=== PATIENT | female | born 1965 | race Caucasian/White ===

== ENCOUNTER 2022-11-23 16:21 | Inpatient (IN) | payer MEDICARE, MEDICAID ==
[~2022-11-23] VITALS: Ht 172.7 cm; Wt 97.5 kg
[2022-11-23] MEDS ORDERED: IPRATROPIUM 0.5MG/ALBUTEROL 2.5MG INH SOL UD 3ML (DUONEB) NEB ONE (17:50)
[2022-11-23] MEDS ORDERED: ALBUTEROL SULFATE 2.5MG/0.5ML INH NEB SOLN INH ONE (17:50)
[2022-11-23] MEDS ORDERED: methylPREDNISolone 125MG 2ML VIAL IV ONE (17:50)
[2022-11-23 18:42] LABS: BASO # 0.1 10^3/uL (0.0-0.2); BASO % 0.9 % (0.0-1.0); EOS # 0.1 10^3/uL (0.0-0.5); HEMATOCRIT 39.9 % (36.0-47.0); HEMOGLOBIN 13.1 g/dl (12.0-15.5); LYMPH # 1.5 10^3/uL (1.5-5.0); MEAN CORPUSCULAR HEMOGLOBIN 31.3 pg (27.0-33.0); MEAN CORPUSCULAR HGB CONC 32.8 g/dl (32.0-36.5); MEAN CORPUSCULAR VOLUME 95.2 fl (80.0-96.0); MONO # 0.3 10^3/uL (0.0-0.8); NEUTROPHILS # 6.1 10^3/uL (1.5-8.5); NEUTROPHILS % 75.6 % (36.0-66.0); PLATELET COUNT, AUTOMATED 209 10^3/uL (150-450); RED BLOOD COUNT 4.19 10^6/uL (4.00-5.40); WHITE BLOOD COUNT 8.1 10^3/uL (4.0-10.0)
[2022-11-23] MEDS ORDERED: PRAZ1CAP PO (18:51)
[2022-11-23] MEDS ORDERED: SYNT100T PO (18:51)
[2022-11-23] MEDS ORDERED: OMEP40CA4 PO (18:51)
[2022-11-23 19:00] LABS: CK-MB VALUE MASS 3.5 NG/ML (<3.6)
[2022-11-23 19:01] LABS: CPK CREATINE PHOSPHOKINASE 264 U/L (34-145); MB/CK RELATIVE INDEX 1.32 (< OR =4)
[2022-11-23 19:02] LABS: ALBUMIN 3.8 G/DL (3.2-5.2); ALKALINE PHOSPHATASE 79 U/L (46-116); ALT/SGPT 24 U/L (7.0-40); AST/SGOT 32 U/L (<34); BILIRUBIN,DIRECT < 0.1 MG/DL (<0.4); BILIRUBIN,TOTAL 0.2 MG/DL (0.3-1.2); TOTAL PROTEIN 7.3 G/DL (5.7-8.2)
[2022-11-23 19:04] LABS: THYROID STIMULATING HORMONE 128.005 uIU/ML (0.55-4.78); THYROXINE (T4) 4.9 UG/DL (4.5-10.9)
[2022-11-23] MEDS ORDERED: ISOVUE-370 76% 100ML VIAL As Ordered ONE (20:58)
[2022-11-23] MEDS ORDERED: diphenhydrAMINE 50MG/ML VIAL IV ONE (21:05)
[2022-11-24] VITALS (12 sets, daily range): BP systolic 115–174; BP diastolic 56–112; O2SAT 95–98
[2022-11-24] MEDS ORDERED: MOM 30ML SUSPENSION UDC PO PRN (01:45)
[2022-11-24] MEDS ORDERED: HYDR50CA2 PO (02:15)
[2022-11-24] MEDS ORDERED: LATU80TA2 PO (02:17)
[2022-11-24] MEDS ORDERED: ONDA4TAB6 SL (02:17)
[2022-11-24] MEDS ORDERED: PRED10TA2 PO (02:17)
[2022-11-24] MEDS ORDERED: HOME MED LIST COMPLETE! XX SCH (02:20)
[2022-11-24 02:27] LABS: FREE T4 0.54 NG/DL (0.89-1.76)
[2022-11-24] MEDS: methylPREDNISolone 40MG 1ML VIAL IV SCH ×3 (03:23→18:38)
[2022-11-24] MEDS: DOXYCYCLINE HYCLATE 100 MG in D5W MINI-BAG PLUS 100 ML IV SCH ×2 (03:23→15:47)
[2022-11-24] MEDS: LEVOTHYROXINE 100MCG TABLET (0.1MG) PO SCH (05:54)
[2022-11-24 07:04] LABS: HEMATOCRIT 39.9 % (36.0-47.0); MEAN CORPUSCULAR HEMOGLOBIN 31.3 pg (27.0-33.0); MEAN CORPUSCULAR HGB CONC 32.6 g/dl (32.0-36.5); MEAN CORPUSCULAR VOLUME 96.1 fl (80.0-96.0); PLATELET COUNT, AUTOMATED 213 10^3/uL (150-450); RED BLOOD COUNT 4.15 10^6/uL (4.00-5.40); WHITE BLOOD COUNT 9.2 10^3/uL (4.0-10.0)
[2022-11-24] MEDS: IPRATROPIUM 0.5MG/ALBUTEROL 2.5MG INH SOL UD 3ML (DUONEB) NEB SCH ×3 (07:38→18:57)
[2022-11-24 08:00] LABS: ALBUMIN 3.5 G/DL (3.2-5.2); BILIRUBIN,TOTAL 0.3 MG/DL (0.3-1.2); CALCIUM LEVEL 9.7 MG/DL (8.5-10.1); CREATININE FOR GFR 1.05 MG/DL (0.55-1.30); GLOMERULAR FILTRATION RATE 57.3 (>51); POTASSIUM SERUM 3.6 MMOL/L (3.5-5.1); TOTAL PROTEIN 7.1 G/DL (5.7-8.2)
[2022-11-24] MEDS: HEPARIN SOD (PORCINE) 5000UNITS/ML 1ML VIAL/SYRINGE SC SCH ×2 (08:03→20:44)
[2022-11-24] MEDS ORDERED: OMEPRAZOLE 20MG CAP PO SCH (09:00)
[2022-11-24] MEDS ORDERED: NS 1,000 ML IV SCH ×2 (09:20→10:25)
[2022-11-24] MEDS ORDERED: ALBUTEROL SULFATE 2.5MG/0.5ML INH NEB SOLN NEB PRN (09:35)
[2022-11-24 09:36] LABS: HIV 1&2 SCREEN CENTAUR NEGATIVE (NEGATIVE)
[2022-11-24] MEDS: NICOTINE 14 MG/24 HR TRANSDERMAL TD SCH (09:52)
[2022-11-24] MEDS ORDERED: ACETAMINOPHEN TAB 650MG DOSE (2X325MG) PO PRN (10:25)
[2022-11-24] MEDS ORDERED: BISACODYL 10MG SUPP PR PRN (10:25)
[2022-11-24 10:53] LABS: BLOOD UREA NITROGEN 23 MG/DL (9-23); CALCIUM LEVEL 9.6 MG/DL (8.5-10.1); CARBON DIOXIDE LEVEL 24 MMOL/L (20-31); CHLORIDE LEVEL 103 MMOL/L (98-107); CREATININE FOR GFR 1.02 MG/DL (0.55-1.30); GLOMERULAR FILTRATION RATE 59.3 (>51); GLUCOSE, FASTING 118 MG/DL (60-100); POTASSIUM SERUM 3.7 MMOL/L (3.5-5.1); SODIUM LEVEL 137 MMOL/L (136-145)
[2022-11-24] MEDS ORDERED: PANTOPRAZOLE 40MG VIAL IV SCH (11:00)
[2022-11-24] MEDS: DOCUSATE SODIUM 100MG CAPSULE PO SCH ×2 (11:09→20:43)
[2022-11-24 11:17] LABS: ABG BASE EXCESS -0.9 (-2.0-2.0); ABG HCO3 22.5 MEQ/L (22.0-26.0); ABG PARTIAL PRESSURE CO2 33.8 mmHg (35.0-45.0); ABG PARTIAL PRESSURE O2 75.9 mmHg (75.0-100.0); ABG STANDARD HCO3 23.7 MEQ/L (22.0-26.0); ABG TOTAL CO2 23.6 MEQ/L (22.0-29.0); ABG pH (ARTERIAL) 7.442 UNITS (7.350-7.450)
[2022-11-24] MEDS: NAPROXEN 250 MG TAB PO SCH ×2 (13:10→20:45)
[2022-11-24] MEDS: DOXEPIN 25 MG CAP PO SCH (20:45)
[2022-11-25] VITALS: BP 161/83
[2022-11-25] MEDS: IPRATROPIUM 0.5MG/ALBUTEROL 2.5MG INH SOL UD 3ML (DUONEB) NEB SCH ×4 (01:14→19:47)
[2022-11-25] MEDS: DOXYCYCLINE HYCLATE 100 MG in D5W MINI-BAG PLUS 100 ML IV SCH ×2 (03:01→15:44)
[2022-11-25] MEDS: methylPREDNISolone 40MG 1ML VIAL IV SCH (03:01)
[2022-11-25 04:00] VITALS: BP 143/84
[2022-11-25 04:54] LABS: BASO % 0.1 % (0.0-1.0); HEMATOCRIT 38.4 % (36.0-47.0); HEMOGLOBIN 12.2 g/dl (12.0-15.5); LYMPH # 1.6 10^3/uL (1.5-5.0); LYMPH % 12.5 % (24.0-44.0); MEAN CORPUSCULAR HEMOGLOBIN 31.2 pg (27.0-33.0); MEAN CORPUSCULAR HGB CONC 31.8 g/dl (32.0-36.5); MEAN CORPUSCULAR VOLUME 98.2 fl (80.0-96.0); MONO # 0.6 10^3/uL (0.0-0.8); MONO % 4.5 % (2.0-8.0); NEUTROPHILS # 10.2 10^3/uL (1.5-8.5); PLATELET COUNT, AUTOMATED 208 10^3/uL (150-450); RED BLOOD COUNT 3.91 10^6/uL (4.00-5.40); WHITE BLOOD COUNT 12.4 10^3/uL (4.0-10.0)
[2022-11-25 05:13] LABS: BLOOD UREA NITROGEN 28 MG/DL (9-23); CALCIUM LEVEL 9.1 MG/DL (8.5-10.1); CARBON DIOXIDE LEVEL 24 MMOL/L (20-31); CHLORIDE LEVEL 105 MMOL/L (98-107); CREATININE FOR GFR 0.89 MG/DL (0.55-1.30); GLOMERULAR FILTRATION RATE > 60.0 (>51); GLUCOSE, FASTING 175 MG/DL (60-100); POTASSIUM SERUM 4.6 MMOL/L (3.5-5.1); SODIUM LEVEL 137 MMOL/L (136-145)
[2022-11-25] MEDS: LEVOTHYROXINE 100MCG TABLET (0.1MG) PO SCH (05:23)
[2022-11-25 08:00] VITALS: BP 157/82
[2022-11-25] MEDS: NICOTINE 14 MG/24 HR TRANSDERMAL TD SCH (08:34)
[2022-11-25] MEDS: HEPARIN SOD (PORCINE) 5000UNITS/ML 1ML VIAL/SYRINGE SC SCH ×2 (08:34→20:17)
[2022-11-25] MEDS: COLCHICINE 0.6 MG TABLET PO SCH (08:34)
[2022-11-25] MEDS: NAPROXEN 250 MG TAB PO SCH ×2 (08:35→20:16)
[2022-11-25] MEDS: PANTOPRAZOLE 40MG TAB (PROTONIX) PO SCH (08:35)
[2022-11-25] MEDS: DOCUSATE SODIUM 100MG CAPSULE PO SCH ×2 (09:55→20:15)
[2022-11-25] MEDS: predniSONE 20 MG TAB PO SCH (10:35)
[2022-11-25 12:00] VITALS: BP 140/69
[2022-11-25 12:33] LABS: HEPATITIS B CORE ANTIBODY IGM NEGATIVE (NEGATIVE); HEPATITIS B SURFACE ANTIBODY NEGATIVE (POSITIVE); HEPATITIS B SURFACE ANTIGEN NEGATIVE (NEGATIVE)
[2022-11-25 12:58] LABS: HEPATITIS C VIRUS ABY INDEX > 11.0 INDEX (<0.8)
[2022-11-25] MEDS: oxyCODONE 5MG TAB PO PRN ×2 (14:58→23:46)
[2022-11-25 20:00] VITALS: BP 136/77
[2022-11-25] MEDS: DOXEPIN 25 MG CAP PO SCH (20:16)
[2022-11-25 21:07] LABS: ANA (HEP2) Negative (.)
[2022-11-26] VITALS: BP 149/90
[2022-11-26] MEDS: IPRATROPIUM 0.5MG/ALBUTEROL 2.5MG INH SOL UD 3ML (DUONEB) NEB SCH ×2 (01:21→08:30)
[2022-11-26] MEDS: DOXYCYCLINE HYCLATE 100 MG in D5W MINI-BAG PLUS 100 ML IV SCH (03:27)
[2022-11-26 04:00] VITALS: BP 157/82
[2022-11-26 04:34] LABS: BASO % 0.2 % (0.0-1.0); EOS % 0.1 % (0.0-3.0); HEMATOCRIT 37.3 % (36.0-47.0); HEMOGLOBIN 11.9 g/dl (12.0-15.5); LYMPH # 2.7 10^3/uL (1.5-5.0); LYMPH % 21.5 % (24.0-44.0); MEAN CORPUSCULAR HGB CONC 31.9 g/dl (32.0-36.5); MEAN CORPUSCULAR VOLUME 97.1 fl (80.0-96.0); MONO # 0.8 10^3/uL (0.0-0.8); MONO % 6.1 % (2.0-8.0); NEUTROPHILS % 71.3 % (36.0-66.0); PLATELET COUNT, AUTOMATED 197 10^3/uL (150-450); RED BLOOD COUNT 3.84 10^6/uL (4.00-5.40); WHITE BLOOD COUNT 12.6 10^3/uL (4.0-10.0)
[2022-11-26 05:06] LABS: C REACTIVE PROTEIN QUANTITATIV < 0.40 MG/DL (<1.0)
[2022-11-26 05:08] LABS: BLOOD UREA NITROGEN 27 MG/DL (9-23); CALCIUM LEVEL 9.1 MG/DL (8.5-10.1); CARBON DIOXIDE LEVEL 26 MMOL/L (20-31); CHLORIDE LEVEL 106 MMOL/L (98-107); GLOMERULAR FILTRATION RATE > 60.0 (>51); GLUCOSE, FASTING 115 MG/DL (60-100); MAGNESIUM LEVEL 1.9 MG/DL (1.8-2.4); POTASSIUM SERUM 3.7 MMOL/L (3.5-5.1); SODIUM LEVEL 138 MMOL/L (136-145)
[2022-11-26] MEDS: LEVOTHYROXINE 100MCG TABLET (0.1MG) PO SCH (05:19)
[2022-11-26] MEDS: oxyCODONE 5MG TAB PO PRN (05:20)
[2022-11-26 06:34] LABS: ERYTHROCYTE SEDIMENTATION RATE 30 mm/hr (0-30)
[2022-11-26 08:00] VITALS: BP 163/88
[2022-11-26] MEDS: NICOTINE 14 MG/24 HR TRANSDERMAL TD SCH (09:00)
[2022-11-26] MEDS: HEPARIN SOD (PORCINE) 5000UNITS/ML 1ML VIAL/SYRINGE SC SCH (09:00)
[2022-11-26] MEDS: NAPROXEN 250 MG TAB PO SCH (09:00)
[2022-11-26] MEDS ORDERED: MIRALAX *UNIT DOSE* 17GM PACKET PO SCH (09:00)
[2022-11-26] MEDS ORDERED: HYDR50CA2 PO (10:01)
[2022-11-26] MEDS ORDERED: SYNT100T PO (10:01)
[2022-11-26] MEDS ORDERED: PRED10TA2 PO (10:01)
[2022-11-26] MEDS ORDERED: PRAZ1CAP PO (10:01)
[2022-11-26] MEDS ORDERED: COLC0.6T47 PO (10:01)
[2022-11-26] MEDS ORDERED: LATU40TA2 PO (10:01)
[2022-11-26] MEDS ORDERED: IPRA0.00 NEB (10:02)
[2022-11-26] MEDS ORDERED: PANT40TA29 PO (10:02)
[2022-11-26] MEDS ORDERED: ALBU2.5V10 INH (10:02)
[2022-11-26] MEDS ORDERED: NAPR-849 PO (10:02)
[2022-11-26] MEDS ORDERED: NICO14PA TD (10:02)
[2022-11-26] MEDS ORDERED: PROA1AER2 INH (10:13)
[2022-11-26] MEDS ORDERED: ADV100INH INH (10:14)
[2022-11-26] MEDS: DOCUSATE SODIUM 100MG CAPSULE PO SCH (11:08)
[2022-11-26] MEDS: COLCHICINE 0.6 MG TABLET PO SCH (11:08)
[2022-11-26] MEDS: PANTOPRAZOLE 40MG TAB (PROTONIX) PO SCH (11:09)
[2022-11-26] MEDS: predniSONE 20 MG TAB PO SCH (11:09)
[2022-11-26 11:12] VITALS: BP 158/80
[2022-11-26] MEDS ORDERED: LURASIDONE HCL 40MG TAB (LATUDA) PO SCH (21:00)
[2022-11-28 19:07] LABS: HCV RNA (INTERNATIONAL UNITS) 22300000 IU/mL (.); HEPATITIS C QUANTITATION See Final Results IU/mL (.); HEPATITIS C VIRUS GENOTYPE 1a (.)
== END 2022-11-26 12:32 | disposition home or self-care (01) | DRG 315 ==
LOC: M ED 16:21 → M ED INP 11-24 02:04 → ENRESERV 11-24 05:12 → M ICU 11-24 06:26
PROVIDERS: ADMIT Internal Medicine; ATTEND Internal Medicine
PROC: B246ZZZ Ultrasonography of Right and Left Heart (ICD-10-PCS; principal; 2022-11-24)
DX: I31.39 Other pericardial effusion (noninflammatory) (principal); J44.1 Chronic obstructive pulmonary disease with (acute) exacerbation; I69.354 Hemiplegia and hemiparesis following cerebral infarction affecting left non-dominant side; E27.1 Primary adrenocortical insufficiency; Z99.81 Dependence on supplemental oxygen; B19.20 Unspecified viral hepatitis C without hepatic coma; K22.70 Barrett's esophagus without dysplasia; K21.9 Gastro-esophageal reflux disease without esophagitis; I10 Essential (primary) hypertension; F17.210 Nicotine dependence, cigarettes, uncomplicated; E78.5 Hyperlipidemia, unspecified; E03.9 Hypothyroidism, unspecified; Z98.82 Breast implant status; Z90.79 Acquired absence of other genital organ(s); Z90.49 Acquired absence of other specified parts of digestive tract; Z20.822 Contact with and (suspected) exposure to COVID-19; Z79.52 Long term (current) use of systemic steroids; Z79.890 Hormone replacement therapy; Z79.899 Other long term (current) drug therapy; Z88.0 Allergy status to penicillin; F41.9 Anxiety disorder, unspecified; F32.A Depression, unspecified; M06.9 Rheumatoid arthritis, unspecified; K76.0 Fatty (change of) liver, not elsewhere classified; F31.9 Bipolar disorder, unspecified

== ENCOUNTER 2022-12-20 15:23 | Emergency (ER) | payer MEDICARE, MEDICAID ==
[~2022-12-20] VITALS: Ht 172.7 cm; Wt 94.9 kg
[~2022-12-20 15:23] MED LIST: ADV100INH INH; ALBU2.5V10 INH; COLC0.6T47 PO; HYDR50CA2 PO; IPRA0.00 NEB; LATU40TA2 PO; LATU80TA2 PO; NAPR-849 PO; NICO14PA TD; OMEP40CA4 PO; ONDA4TAB6 SL; PANT40TA29 PO; PRAZ1CAP PO; PRED10TA2 PO; PROA1AER2 INH; SYNT100T PO
[2022-12-20 16:20] LABS: BASO # 0.1 10^3/uL (0.0-0.2); BASO % 0.4 % (0.0-1.0); EOS # 0.1 10^3/uL (0.0-0.5); EOS % 0.6 % (0.0-3.0); HEMATOCRIT 38.1 % (36.0-47.0); HEMOGLOBIN 12.5 g/dl (12.0-15.5); LYMPH % 16.1 % (24.0-44.0); MEAN CORPUSCULAR HEMOGLOBIN 30.6 pg (27.0-33.0); MEAN CORPUSCULAR HGB CONC 32.8 g/dl (32.0-36.5); MEAN CORPUSCULAR VOLUME 93.4 fl (80.0-96.0); MONO # 1.4 10^3/uL (0.0-0.8); MONO % 11.3 % (2.0-8.0); NEUTROPHILS # 8.7 10^3/uL (1.5-8.5); PLATELET COUNT, AUTOMATED 210 10^3/uL (150-450); RED BLOOD COUNT 4.08 10^6/uL (4.00-5.40); WHITE BLOOD COUNT 12.3 10^3/uL (4.0-10.0)
[2022-12-20 16:51] VITALS: BP 134/74
[2022-12-20 16:53] LABS: BLOOD UREA NITROGEN 13 MG/DL (9-23); CALCIUM LEVEL 9.5 MG/DL (8.5-10.1); CARBON DIOXIDE LEVEL 25 MMOL/L (20-31); CHLORIDE LEVEL 107 MMOL/L (98-107); CREATININE FOR GFR 0.97 MG/DL (0.55-1.30); GLOMERULAR FILTRATION RATE > 60.0 (>51); GLUCOSE, FASTING 113 MG/DL (60-100); POTASSIUM SERUM 3.6 MMOL/L (3.5-5.1); SODIUM LEVEL 139 MMOL/L (136-145)
[2022-12-20 16:55] LABS: THYROXINE (T4) 9.1 UG/DL (4.5-10.9)
[2022-12-20 16:56] LABS: FREE THYROXINE INDEX 3.1 % (1.3-4.8); T UPTAKE 34.3 % (22.5-37.0); THYROID STIMULATING HORMONE 6.988 uIU/ML (0.55-4.78)
[2022-12-20 17:40] LABS: RSV AMPLIFICATION NEGATIVE (NEGATIVE)
== END 2022-12-20 17:28 | disposition home or self-care (01) ==
LOC: M ED 15:23
DX: S00.83XA Contusion of other part of head, initial encounter (principal); W19.XXXA Unspecified fall, initial encounter; Y92.099 Unspecified place in other non-institutional residence as the place of occurrence of the external cause; M47.892 Other spondylosis, cervical region; I10 Essential (primary) hypertension; E03.9 Hypothyroidism, unspecified; E27.2 Addisonian crisis; Z86.73 Personal history of transient ischemic attack (TIA), and cerebral infarction without residual deficits; F17.200 Nicotine dependence, unspecified, uncomplicated; Z79.890 Hormone replacement therapy; Z79.899 Other long term (current) drug therapy; Z88.0 Allergy status to penicillin

== ENCOUNTER 2023-10-01 00:41 | Emergency (ER) | payer OTHER, MEDICAID ==
[~2023-10-01] VITALS: Ht 172.7 cm; Wt 90.9 kg
[~2023-10-01 00:41] MED LIST changes: +DOXE50CA PO; +XARE20TA PO
[2023-10-01 03:18] VITALS: BP 137/79; TEMP 98; O2SAT 96
== END 2023-10-01 03:45 | disposition home or self-care (01) ==
LOC: M ED 00:41 → EDBD 00:41 → M ED 03:45
DX: U07.1 COVID-19 (principal); I10 Essential (primary) hypertension; J44.9 Chronic obstructive pulmonary disease, unspecified; F17.200 Nicotine dependence, unspecified, uncomplicated; Z86.79 Personal history of other diseases of the circulatory system; Z91.041 Radiographic dye allergy status; Z88.0 Allergy status to penicillin; Z88.2 Allergy status to sulfonamides; Z79.52 Long term (current) use of systemic steroids; Z79.899 Other long term (current) drug therapy

== ENCOUNTER 2023-10-06 22:00 | Inpatient (IN) | payer OTHER, MEDICAID ==
[~2023-10-06] VITALS: Ht 172.7 cm; Wt 98.4 kg
[2023-10-06] MEDS: IPRATROPIUM 0.5MG/ALBUTEROL 2.5MG INH SOL UD 3ML (DUONEB) NEB PRN ×2 (23:36→23:37)
[2023-10-06] MEDS ORDERED: IPRATROPIUM 0.5MG/ALBUTEROL 2.5MG INH SOL UD 3ML (DUONEB) As Ordered ONE (23:40)
[2023-10-07 00:47] LABS: BASO % 0.2 % (0.0-1.0); EOS % 0.1 % (0.0-3.0); HEMATOCRIT 35.7 % (36.0-47.0); HEMOGLOBIN 11.4 g/dl (12.0-15.5); LYMPH # 0.5 10^3/uL (1.5-5.0); LYMPH % 2.6 % (24.0-44.0); MEAN CORPUSCULAR HEMOGLOBIN 27.5 pg (27.0-33.0); MEAN CORPUSCULAR HGB CONC 31.9 g/dl (32.0-36.5); MEAN CORPUSCULAR VOLUME 86.2 fl (80.0-96.0); MONO # 0.7 10^3/uL (0.0-0.8); MONO % 3.8 % (2.0-8.0); NEUTROPHILS # 18.2 10^3/uL (1.5-8.5); NEUTROPHILS % 92.4 % (36.0-66.0); PLATELET COUNT, AUTOMATED 183 10^3/uL (150-450); RED BLOOD COUNT 4.14 10^6/uL (4.00-5.40); WHITE BLOOD COUNT 19.6 10^3/uL (4.0-10.0)
[2023-10-07 01:18] LABS: CK-MB VALUE MASS < 1.0 NG/ML (<3.6)
[2023-10-07 01:20] LABS: ALBUMIN 3.1 G/DL (3.2-5.2); ALKALINE PHOSPHATASE 92 U/L (46-116); ALT/SGPT 20 U/L (7.0-40); AST/SGOT 20 U/L (<34); BILIRUBIN,DIRECT 0.1 MG/DL (<0.4); BILIRUBIN,TOTAL 0.3 MG/DL (0.3-1.2); BLOOD UREA NITROGEN 18 MG/DL (9-23); CALCIUM LEVEL 8.9 MG/DL (8.5-10.1); CARBON DIOXIDE LEVEL 20 MMOL/L (20-31); CHLORIDE LEVEL 110 MMOL/L (98-107); CPK CREATINE PHOSPHOKINASE 56 U/L (34-145); CREATININE FOR GFR 1.16 MG/DL (0.55-1.30); GLOMERULAR FILTRATION RATE 50.9 (>51); GLUCOSE, FASTING 175 MG/DL (60-100); MB/CK RELATIVE INDEX 1.78 (< OR =4); SODIUM LEVEL 140 MMOL/L (136-145); TOTAL PROTEIN 6.5 G/DL (5.7-8.2)
[2023-10-07 05:37] LABS: CK-MB VALUE MASS < 1.0 NG/ML (<3.6)
[2023-10-07 05:39] LABS: CPK CREATINE PHOSPHOKINASE 56 U/L (34-145); MB/CK RELATIVE INDEX 1.78 (< OR =4)
[2023-10-07] MEDS ORDERED: IPRATROPIUM 0.5MG/ALBUTEROL 2.5MG INH SOL UD 3ML (DUONEB) NEB ONE ×2 (06:30)
[2023-10-07] MEDS ORDERED: methylPREDNISolone 125MG 2ML VIAL IV ONE (06:55)
[2023-10-07] MEDS ORDERED: POTASSIUM CHLORIDE 10MEQ SR TABLET PO ONE ×2 (07:00→07:25)
[2023-10-07 07:01] LABS: PROCALCITONIN 18.33 ng/ml
[2023-10-07] MEDS ORDERED: NS 2,660 ML in IV 1 EA IV ONE (07:25)
[2023-10-07] MEDS ORDERED: LevoFLOXacin IV 750 MG in IV 1 EA IV ONE (07:25)
[2023-10-07] MEDS ORDERED: MED REC IN PROGRESS XX SCH (10:30)
[2023-10-07] MEDS ORDERED: DOXA2TAB PO (10:57)
[2023-10-07] MEDS ORDERED: DOXA1TAB41 PO (10:57)
[2023-10-07] MEDS ORDERED: TRAZ1TAB14 PO (10:57)
[2023-10-07] MEDS ORDERED: OLAN20TA14 PO (10:57)
[2023-10-07] MEDS ORDERED: GABA-1171 PO (10:57)
[2023-10-07] MEDS ORDERED: DOXA1TAB49 PO (10:57)
[2023-10-07] MEDS ORDERED: OXYB5TAB11 PO (10:57)
[2023-10-07] MEDS ORDERED: HOME MED LIST COMPLETE! XX SCH (11:00)
[2023-10-07] MEDS ORDERED: DOXAZOSIN MESYLATE 1 MG TAB PO PRN (11:20)
[2023-10-07] MEDS ORDERED: MOM 30ML SUSPENSION UDC PO PRN (11:20)
[2023-10-07 12:40] VITALS: BP 141/76; TEMP 98.4; O2SAT 95
[2023-10-07] MEDS: LEVOTHYROXINE 100MCG TABLET (0.1MG) PO SCH (13:08)
[2023-10-07 13:39] LABS: INR 1.14; PROTHROMBIN TIME 14.3 SECONDS (12.5-14.5)
[2023-10-07 14:00] VITALS: BP 136/75; TEMP 98.4; O2SAT 92
[2023-10-07] MEDS: GABAPENTIN 100 MG CAP PO SCH ×2 (15:39→19:24)
[2023-10-07] MEDS: methylPREDNISolone 40MG 1ML VIAL IV SCH ×2 (15:40→22:53)
[2023-10-07] MEDS: NICOTINE 14 MG/24 HR TRANSDERMAL TD SCH (16:07)
[2023-10-07] MEDS: RIVAROXABAN 20MG TAB (XARELTO) PO SCH (17:02)
[2023-10-07 18:00] VITALS: BP 145/78; TEMP 97.9; O2SAT 91
[2023-10-07] MEDS: traZODone 50 MG TAB PO SCH (19:24)
[2023-10-07] MEDS: ACETAMINOPHEN TAB 650MG DOSE (2X325MG) PO PRN (19:24)
[2023-10-07] MEDS: DOXEPIN 25 MG CAP PO SCH (19:24)
[2023-10-07] MEDS: OLANZapine 10 MG TAB PO SCH (19:24)
[2023-10-07] MEDS: oxyBUTYnin 5 MG TAB PO SCH (19:25)
[2023-10-07] MEDS: DOCUSATE SODIUM 100MG CAPSULE PO SCH (19:25)
[2023-10-07] MEDS: DOXAZOSIN MESYLATE 4 MG TAB PO SCH (19:25)
[2023-10-07 20:00] VITALS: BP 138/76; TEMP 98.1; O2SAT 93
[2023-10-07] MEDS ORDERED: PANTOPRAZOLE 40MG TAB (PROTONIX) PO SCH (21:00)
[2023-10-08] VITALS: BP 133/82; TEMP 97.3; O2SAT 90
[2023-10-08 05:53] LABS: BASO % 0.2 % (0.0-1.0); HEMOGLOBIN 10.6 g/dl (12.0-15.5); LYMPH # 0.9 10^3/uL (1.5-5.0); LYMPH % 3.7 % (24.0-44.0); MEAN CORPUSCULAR HEMOGLOBIN 27.6 pg (27.0-33.0); MEAN CORPUSCULAR HGB CONC 31.2 g/dl (32.0-36.5); MEAN CORPUSCULAR VOLUME 88.5 fl (80.0-96.0); MONO # 0.7 10^3/uL (0.0-0.8); MONO % 2.7 % (2.0-8.0); NEUTROPHILS # 22.6 10^3/uL (1.5-8.5); NEUTROPHILS % 91.9 % (36.0-66.0); PLATELET COUNT, AUTOMATED 176 10^3/uL (150-450); RED BLOOD COUNT 3.84 10^6/uL (4.00-5.40); WHITE BLOOD COUNT 24.6 10^3/uL (4.0-10.0)
[2023-10-08 06:00] VITALS: BP 120/70; TEMP 97.2; O2SAT 91
[2023-10-08] MEDS: LEVOTHYROXINE 100MCG TABLET (0.1MG) PO SCH (06:17)
[2023-10-08] MEDS: methylPREDNISolone 40MG 1ML VIAL IV SCH ×3 (06:17→21:56)
[2023-10-08 06:31] LABS: BLOOD UREA NITROGEN 21 MG/DL (9-23); CALCIUM LEVEL 9.3 MG/DL (8.5-10.1); CARBON DIOXIDE LEVEL 22 MMOL/L (20-31); CHLORIDE LEVEL 111 MMOL/L (98-107); CREATININE FOR GFR 0.75 MG/DL (0.55-1.30); GLOMERULAR FILTRATION RATE > 60.0 (>51); GLUCOSE, FASTING 180 MG/DL (60-100); POTASSIUM SERUM 4.8 MMOL/L (3.5-5.1); SODIUM LEVEL 138 MMOL/L (136-145)
[2023-10-08] MEDS ORDERED: LevoFLOXacin IV 750 MG in IV 1 EA IV SCH (08:00)
[2023-10-08] MEDS: DOCUSATE SODIUM 100MG CAPSULE PO SCH ×2 (08:03→21:53)
[2023-10-08] MEDS: oxyBUTYnin 5 MG TAB PO SCH ×2 (08:03→21:55)
[2023-10-08] MEDS: GABAPENTIN 100 MG CAP PO SCH ×3 (08:03→21:55)
[2023-10-08] MEDS: NICOTINE 14 MG/24 HR TRANSDERMAL TD SCH (08:04)
[2023-10-08 10:00] VITALS: BP 148/81; TEMP 97.7; O2SAT 94
[2023-10-08] MEDS: PANTOPRAZOLE 40MG TAB (PROTONIX) PO SCH ×2 (11:00→21:54)
[2023-10-08 14:00] VITALS: BP 145/70; TEMP 97.7; O2SAT 93
[2023-10-08] MEDS: RIVAROXABAN 20MG TAB (XARELTO) PO SCH (17:12)
[2023-10-08] MEDS: ACETAMINOPHEN TAB 650MG DOSE (2X325MG) PO PRN ×2 (17:12→21:58)
[2023-10-08 18:00] VITALS: BP 161/92; TEMP 98.1; O2SAT 89
[2023-10-08 21:52] VITALS: BP 156/83; TEMP 98.4; O2SAT 94
[2023-10-08] MEDS: OLANZapine 10 MG TAB PO SCH (21:54)
[2023-10-08] MEDS: DOXEPIN 25 MG CAP PO SCH (21:55)
[2023-10-08] MEDS: DOXAZOSIN MESYLATE 4 MG TAB PO SCH (21:55)
[2023-10-08] MEDS: traZODone 50 MG TAB PO SCH (21:55)
[2023-10-09 02:03] VITALS: BP 142/77; TEMP 97.9; O2SAT 92
[2023-10-09 05:54] VITALS: BP 142/78; TEMP 97.7; O2SAT 92
[2023-10-09] MEDS: methylPREDNISolone 40MG 1ML VIAL IV SCH ×2 (05:57→18:23)
[2023-10-09] MEDS: LevoFLOXacin 750 MG TABLET PO SCH (05:57)
[2023-10-09] MEDS: LEVOTHYROXINE 112MCG TABLET (0.112MG) PO SCH (05:57)
[2023-10-09] MEDS ORDERED: LEVOTHYROXINE 100MCG TABLET (0.1MG) PO SCH (06:00)
[2023-10-09 06:20] LABS: BASO % 0.1 % (0.0-1.0); HEMATOCRIT 34.8 % (36.0-47.0); LYMPH % 4.5 % (24.0-44.0); MEAN CORPUSCULAR HEMOGLOBIN 27.6 pg (27.0-33.0); MEAN CORPUSCULAR HGB CONC 31.6 g/dl (32.0-36.5); MEAN CORPUSCULAR VOLUME 87.2 fl (80.0-96.0); MONO # 0.7 10^3/uL (0.0-0.8); MONO % 3.1 % (2.0-8.0); NEUTROPHILS # 21.1 10^3/uL (1.5-8.5); NEUTROPHILS % 91.2 % (36.0-66.0); PLATELET COUNT, AUTOMATED 220 10^3/uL (150-450); RED BLOOD COUNT 3.99 10^6/uL (4.00-5.40); WHITE BLOOD COUNT 23.2 10^3/uL (4.0-10.0)
[2023-10-09 06:37] LABS: ERYTHROCYTE SEDIMENTATION RATE 91 mm/hr (0-30)
[2023-10-09 06:53] LABS: BLOOD UREA NITROGEN 24 MG/DL (9-23); CALCIUM LEVEL 10.5 MG/DL (8.5-10.1); CARBON DIOXIDE LEVEL 21 MMOL/L (20-31); CHLORIDE LEVEL 112 MMOL/L (98-107); CREATININE FOR GFR 0.72 MG/DL (0.55-1.30); GLOMERULAR FILTRATION RATE > 60.0 (>51); GLUCOSE, FASTING 160 MG/DL (60-100); POTASSIUM SERUM 4.3 MMOL/L (3.5-5.1); SODIUM LEVEL 141 MMOL/L (136-145)
[2023-10-09] MEDS: oxyBUTYnin 5 MG TAB PO SCH ×2 (08:29→20:22)
[2023-10-09] MEDS: DOCUSATE SODIUM 100MG CAPSULE PO SCH ×2 (08:29→20:23)
[2023-10-09] MEDS: GABAPENTIN 100 MG CAP PO SCH ×3 (08:29→20:22)
[2023-10-09] MEDS: NICOTINE 14 MG/24 HR TRANSDERMAL TD SCH (08:30)
[2023-10-09] MEDS ORDERED: KETOROLAC 30 MG/ML 1ML VIAL IV PRN (08:40)
[2023-10-09] MEDS: KETOROLAC 30 MG/ML 1ML VIAL IV PRN (09:06)
[2023-10-09 10:00] VITALS: BP 154/83; TEMP 97.7; O2SAT 93
[2023-10-09] MEDS: PANTOPRAZOLE 40MG TAB (PROTONIX) PO SCH ×2 (11:54→20:23)
[2023-10-09] MEDS: FUROSEMIDE 40 MG TAB PO SCH (13:48)
[2023-10-09 14:00] VITALS: BP 173/103; TEMP 97.3; O2SAT 93
[2023-10-09 18:00] VITALS: BP 171/101; TEMP 97.9; O2SAT 93
[2023-10-09] MEDS: RIVAROXABAN 20MG TAB (XARELTO) PO SCH (18:22)
[2023-10-09] MEDS: traZODone 50 MG TAB PO SCH (20:22)
[2023-10-09] MEDS: DOXEPIN 25 MG CAP PO SCH (20:23)
[2023-10-09] MEDS: OLANZapine 10 MG TAB PO SCH (20:23)
[2023-10-09] MEDS: DOXAZOSIN MESYLATE 4 MG TAB PO SCH (20:25)
[2023-10-09 21:30] VITALS: BP 143/82; TEMP 97; O2SAT 91
[2023-10-10] VITALS (8 sets, daily range): BP systolic 134–162; BP diastolic 72–93; TEMP 97–98.1; O2SAT 90–94
[2023-10-10] MEDS: KETOROLAC 30 MG/ML 1ML VIAL IV PRN (02:59)
[2023-10-10 05:39] LABS: BASO % 0.1 % (0.0-1.0); HEMOGLOBIN 11.1 g/dl (12.0-15.5); LYMPH # 1.8 10^3/uL (1.5-5.0); LYMPH % 9.1 % (24.0-44.0); MEAN CORPUSCULAR HEMOGLOBIN 27.5 pg (27.0-33.0); MEAN CORPUSCULAR HGB CONC 31.7 g/dl (32.0-36.5); MEAN CORPUSCULAR VOLUME 86.8 fl (80.0-96.0); MONO # 0.7 10^3/uL (0.0-0.8); MONO % 3.7 % (2.0-8.0); NEUTROPHILS # 16.5 10^3/uL (1.5-8.5); NEUTROPHILS % 85.5 % (36.0-66.0); PLATELET COUNT, AUTOMATED 228 10^3/uL (150-450); RED BLOOD COUNT 4.03 10^6/uL (4.00-5.40); WHITE BLOOD COUNT 19.4 10^3/uL (4.0-10.0)
[2023-10-10] MEDS: methylPREDNISolone 40MG 1ML VIAL IV SCH (06:03)
[2023-10-10] MEDS: LevoFLOXacin 750 MG TABLET PO SCH (06:03)
[2023-10-10] MEDS: LEVOTHYROXINE 112MCG TABLET (0.112MG) PO SCH (06:03)
[2023-10-10 06:12] LABS: BLOOD UREA NITROGEN 35 MG/DL (9-23); CARBON DIOXIDE LEVEL 23 MMOL/L (20-31); CHLORIDE LEVEL 109 MMOL/L (98-107); CREATININE FOR GFR 0.83 MG/DL (0.55-1.30); GLOMERULAR FILTRATION RATE > 60.0 (>51); GLUCOSE, FASTING 136 MG/DL (60-100); POTASSIUM SERUM 4.3 MMOL/L (3.5-5.1); SODIUM LEVEL 139 MMOL/L (136-145)
[2023-10-10] MEDS ORDERED: IBUPROFEN 400MG TAB PO PRN (07:10)
[2023-10-10] MEDS: oxyBUTYnin 5 MG TAB PO SCH ×2 (08:41→20:54)
[2023-10-10] MEDS: NICOTINE 14 MG/24 HR TRANSDERMAL TD SCH (08:41)
[2023-10-10] MEDS: GABAPENTIN 100 MG CAP PO SCH ×3 (08:41→20:54)
[2023-10-10] MEDS: MIRALAX *UNIT DOSE* 17GM PACKET PO SCH ×2 (08:41→20:58)
[2023-10-10] MEDS: DOCUSATE SODIUM 100MG CAPSULE PO SCH ×2 (08:41→20:54)
[2023-10-10] MEDS: METAMUCIL (PSYLLIUM) PACKET PO SCH ×2 (08:41→20:58)
[2023-10-10] MEDS: FUROSEMIDE 40 MG TAB PO SCH (08:42)
[2023-10-10] MEDS: IBUPROFEN 600MG TAB PO PRN ×2 (08:51→16:45)
[2023-10-10] MEDS ORDERED: LIDOCAINE 4% CREAM 5GM (LMX4) TOP PRN (11:30)
[2023-10-10] MEDS: PANTOPRAZOLE 40MG TAB (PROTONIX) PO SCH ×2 (12:50→20:54)
[2023-10-10] MEDS: RIVAROXABAN 20MG TAB (XARELTO) PO SCH (18:15)
[2023-10-10] MEDS: traZODone 50 MG TAB PO SCH (20:51)
[2023-10-10] MEDS: DOXEPIN 25 MG CAP PO SCH (20:55)
[2023-10-10] MEDS: OLANZapine 10 MG TAB PO SCH (20:55)
[2023-10-10] MEDS: DOXAZOSIN MESYLATE 4 MG TAB PO SCH (20:57)
[2023-10-11 05:10] VITALS: BP 141/83; TEMP 97.2; O2SAT 93
[2023-10-11] MEDS: LEVOTHYROXINE 112MCG TABLET (0.112MG) PO SCH (05:28)
[2023-10-11] MEDS: LevoFLOXacin 750 MG TABLET PO SCH (05:28)
[2023-10-11 05:43] LABS: BASO % 0.3 % (0.0-1.0); EOS % 0.3 % (0.0-3.0); HEMATOCRIT 37.6 % (36.0-47.0); HEMOGLOBIN 11.9 g/dl (12.0-15.5); LYMPH # 3.3 10^3/uL (1.5-5.0); LYMPH % 28.1 % (24.0-44.0); MEAN CORPUSCULAR HEMOGLOBIN 27.3 pg (27.0-33.0); MEAN CORPUSCULAR HGB CONC 31.6 g/dl (32.0-36.5); MEAN CORPUSCULAR VOLUME 86.2 fl (80.0-96.0); MONO # 0.7 10^3/uL (0.0-0.8); MONO % 6.4 % (2.0-8.0); NEUTROPHILS % 60.8 % (36.0-66.0); PLATELET COUNT, AUTOMATED 235 10^3/uL (150-450); RED BLOOD COUNT 4.36 10^6/uL (4.00-5.40); WHITE BLOOD COUNT 11.6 10^3/uL (4.0-10.0)
[2023-10-11 06:11] LABS: BLOOD UREA NITROGEN 32 MG/DL (9-23); CALCIUM LEVEL 9.1 MG/DL (8.5-10.1); CARBON DIOXIDE LEVEL 25 MMOL/L (20-31); CHLORIDE LEVEL 107 MMOL/L (98-107); CREATININE FOR GFR 0.95 MG/DL (0.55-1.30); GLOMERULAR FILTRATION RATE > 60.0 (>51); GLUCOSE, FASTING 83 MG/DL (60-100); SODIUM LEVEL 141 MMOL/L (136-145)
[2023-10-11 06:12] LABS: ERYTHROCYTE SEDIMENTATION RATE 66 mm/hr (0-30)
[2023-10-11] MEDS: MIRALAX *UNIT DOSE* 17GM PACKET PO SCH (08:23)
[2023-10-11] MEDS: METAMUCIL (PSYLLIUM) PACKET PO SCH (08:23)
[2023-10-11] MEDS: oxyBUTYnin 5 MG TAB PO SCH (08:24)
[2023-10-11] MEDS: NICOTINE 14 MG/24 HR TRANSDERMAL TD SCH (08:24)
[2023-10-11] MEDS: GABAPENTIN 100 MG CAP PO SCH (08:24)
[2023-10-11] MEDS: DOCUSATE SODIUM 100MG CAPSULE PO SCH (08:24)
[2023-10-11] MEDS ORDERED: predniSONE 20 MG TAB PO SCH (09:00)
[2023-10-11] MEDS ORDERED: FUROSEMIDE 20 MG TAB PO SCH (09:00)
[2023-10-11] MEDS ORDERED: methylPREDNISolone 40MG 1ML VIAL IV SCH (09:00)
[2023-10-11 09:34] VITALS: BP 96/64; TEMP 97.5; O2SAT 93
[2023-10-11 10:10] VITALS: BP 110/70
[2023-10-11] MEDS ORDERED: LEVO1TAB40 PO ×2 (10:26→14:46)
[2023-10-11] MEDS ORDERED: SYNT112T2 PO ×2 (10:26→14:46)
[2023-10-11] MEDS ORDERED: FURO20TA2 PO ×2 (10:26→14:46)
[2023-10-11] MEDS ORDERED: MIRA3350 PO ×2 (10:26→14:46)
[2023-10-11] MEDS ORDERED: PRED10TA2 PO ×4 (10:26→14:46)
[2023-10-11] MEDS ORDERED: NICO21DI37 TOP ×2 (10:32→14:46)
[2023-10-11] MEDS: PANTOPRAZOLE 40MG TAB (PROTONIX) PO SCH (12:07)
[2023-10-11 12:09] VITALS: BP 130/81
[2023-10-11] MEDS ORDERED: PANT40TA29 PO (15:29)
== END 2023-10-11 15:45 | disposition home or self-care (01) | DRG 689 ==
LOC: M ED 22:00 → M ED INP 10-07 11:20 → M MSPAV 10-07 12:45
PROVIDERS: ADMIT Student in an Organized Health Care Education/Training Program; ATTEND Student in an Organized Health Care Education/Training Program
PROC: B246ZZZ Ultrasonography of Right and Left Heart (ICD-10-PCS; principal; 2023-10-08)
DX: N39.0 Urinary tract infection, site not specified (principal); U07.1 COVID-19; E27.1 Primary adrenocortical insufficiency; N17.9 Acute kidney failure, unspecified; I31.39 Other pericardial effusion (noninflammatory); E87.20 Acidosis, unspecified; B96.20 Unspecified Escherichia coli [E. coli] as the cause of diseases classified elsewhere; G62.9 Polyneuropathy, unspecified; K21.9 Gastro-esophageal reflux disease without esophagitis; K22.70 Barrett's esophagus without dysplasia; B18.2 Chronic viral hepatitis C; E87.6 Hypokalemia; I11.0 Hypertensive heart disease with heart failure; I50.810 Right heart failure, unspecified; I27.81 Cor pulmonale (chronic); F31.9 Bipolar disorder, unspecified; F41.9 Anxiety disorder, unspecified; F17.200 Nicotine dependence, unspecified, uncomplicated; E03.9 Hypothyroidism, unspecified; J44.9 Chronic obstructive pulmonary disease, unspecified; G47.00 Insomnia, unspecified; Z86.16 Personal history of COVID-19; Z98.82 Breast implant status; Z90.49 Acquired absence of other specified parts of digestive tract; Z90.79 Acquired absence of other genital organ(s); Z79.890 Hormone replacement therapy; Z79.899 Other long term (current) drug therapy; Z88.0 Allergy status to penicillin; Z88.2 Allergy status to sulfonamides; Z91.041 Radiographic dye allergy status

== ENCOUNTER 2023-10-19 14:09 | Observation (INO) | payer OTHER, MEDICAID ==
[~2023-10-19] VITALS: Ht 172.7 cm; Wt 100.7 kg
[~2023-10-19 14:09] MED LIST changes: +DOXA1TAB41 PO; +DOXA1TAB49 PO; +DOXA2TAB PO; +FURO20TA2 PO; +GABA-1171 PO; +LEVO1TAB40 PO; +MIRA3350 PO; +NICO21DI37 TOP; +OLAN20TA14 PO; +OXYB5TAB11 PO; +SYNT112T2 PO; +TRAZ1TAB14 PO
[2023-10-19] MEDS ORDERED: ACETAMINOPHEN TAB 650MG DOSE (2X325MG) PO ONE (14:30)
[2023-10-19] MEDS ORDERED: HYDROCORTISONE 100MG/2ML VIAL IV ONE (15:05)
[2023-10-19 16:06] LABS: BASO % 0.3 % (0.0-1.0); EOS # 0.1 10^3/uL (0.0-0.5); EOS % 1.2 % (0.0-3.0); HEMATOCRIT 38.2 % (36.0-47.0); HEMOGLOBIN 11.9 g/dl (12.0-15.5); LYMPH # 2.1 10^3/uL (1.5-5.0); LYMPH % 22.6 % (24.0-44.0); MEAN CORPUSCULAR HEMOGLOBIN 27.6 pg (27.0-33.0); MEAN CORPUSCULAR HGB CONC 31.2 g/dl (32.0-36.5); MEAN CORPUSCULAR VOLUME 88.6 fl (80.0-96.0); MONO # 0.9 10^3/uL (0.0-0.8); MONO % 9.1 % (2.0-8.0); NEUTROPHILS # 6.2 10^3/uL (1.5-8.5); NEUTROPHILS % 65.7 % (36.0-66.0); PLATELET COUNT, AUTOMATED 261 10^3/uL (150-450); RED BLOOD COUNT 4.31 10^6/uL (4.00-5.40); WHITE BLOOD COUNT 9.4 10^3/uL (4.0-10.0)
[2023-10-19 16:31] LABS: ALBUMIN 3.2 G/DL (3.2-5.2); ALKALINE PHOSPHATASE 83 U/L (46-116); ALT/SGPT 12 U/L (7.0-40); AST/SGOT 14 U/L (<34); BILIRUBIN,DIRECT < 0.1 MG/DL (<0.4); BILIRUBIN,TOTAL 0.3 MG/DL (0.3-1.2); BLOOD UREA NITROGEN 24 MG/DL (9-23); CALCIUM LEVEL 9.9 MG/DL (8.5-10.1); CARBON DIOXIDE LEVEL 28 MMOL/L (20-31); CHLORIDE LEVEL 106 MMOL/L (98-107); CK-MB VALUE MASS < 1.0 NG/ML (<3.6); CREATININE FOR GFR 0.96 MG/DL (0.55-1.30); GLOMERULAR FILTRATION RATE > 60.0 (>51); GLUCOSE, FASTING 84 MG/DL (60-100); POTASSIUM SERUM 4.4 MMOL/L (3.5-5.1); SODIUM LEVEL 138 MMOL/L (136-145); TOTAL PROTEIN 6.7 G/DL (5.7-8.2)
[2023-10-19 16:33] LABS: FREE T4 0.95 NG/DL (0.89-1.76)
[2023-10-19 16:48] LABS: CPK CREATINE PHOSPHOKINASE 25 U/L (34-145)
[2023-10-19] MEDS: NS 1,000 ML IV SCH ×2 (17:54→22:48)
[2023-10-19 18:03] LABS: CK-MB VALUE MASS < 1.0 NG/ML (<3.6)
[2023-10-19 18:04] LABS: CPK CREATINE PHOSPHOKINASE < 15 U/L (34-145)
[2023-10-19] MEDS ORDERED: MORPHINE 4 MG/ML 1ML VIAL IV ONE (18:45)
[2023-10-19] MEDS ORDERED: MED REC IN PROGRESS XX SCH (19:10)
[2023-10-19] MEDS ORDERED: MAALOX 30 ML SUSP *UDC PO PRN (19:30)
[2023-10-19] MEDS ORDERED: ACETAMINOPHEN TAB 650MG DOSE (2X325MG) PO PRN (19:30)
[2023-10-19] MEDS ORDERED: MOM 30ML SUSPENSION UDC PO PRN (19:30)
[2023-10-19] MEDS ORDERED: FURO20TA2 PO (19:53)
[2023-10-19] MEDS ORDERED: LEVO1TAB40 PO (19:57)
[2023-10-19] MEDS ORDERED: LEVO112T2 PO (19:58)
[2023-10-19] MEDS ORDERED: NICO21DI37 TD (20:00)
[2023-10-19] MEDS ORDERED: PANT40TA29 PO (20:02)
[2023-10-19] MEDS ORDERED: PRED10TA2 PO (20:03)
[2023-10-19] MEDS ORDERED: HOME MED LIST COMPLETE! XX SCH (20:10)
[2023-10-19] MEDS ORDERED: DOXAZOSIN MESYLATE 1 MG TAB PO PRN (20:25)
[2023-10-19] MEDS: OLANZapine 10 MG TAB PO SCH (22:48)
[2023-10-19] MEDS: oxyBUTYnin 5 MG TAB PO SCH (22:49)
[2023-10-19] MEDS: traZODone 50 MG TAB PO SCH (22:49)
[2023-10-19] MEDS: GABAPENTIN 100 MG CAP PO SCH (22:50)
[2023-10-19] MEDS: DOXAZOSIN MESYLATE 4 MG TAB PO SCH (22:51)
[2023-10-19] MEDS: DOCUSATE SODIUM 100MG CAPSULE PO SCH (22:52)
[2023-10-19] MEDS: PANTOPRAZOLE 40MG TAB (PROTONIX) PO SCH (22:52)
[2023-10-19] MEDS: DOXEPIN 25 MG CAP PO SCH (22:52)
[2023-10-20 01:04] LABS: AMPHETAMINES LEVEL URINE NEGATIVE (NEGATIVE); BARBITURATES URINE NEGATIVE (NEGATIVE); BENZODIAZEPINES URINE NEGATIVE (NEGATIVE); CANNABINOIDS URINE NEGATIVE (NEGATIVE); COCAINE METABOLITE URINE NEGATIVE (NEGATIVE); METHADONE URINE NEGATIVE (NEGATIVE); PHENCYCLIDINE URINE NEGATIVE (NEGATIVE)
[2023-10-20] MEDS: PERCOCET 5MG/325MG TAB PO PRN ×4 (01:06→20:24)
[2023-10-20 01:08] LABS: OPIATES URINE POSITIVE (NEGATIVE)
[2023-10-20] MEDS: NS 1,000 ML IV SCH (03:50)
[2023-10-20 06:16] LABS: HEMATOCRIT 39.7 % (36.0-47.0); HEMOGLOBIN 12.1 g/dl (12.0-15.5); MEAN CORPUSCULAR HEMOGLOBIN 27.5 pg (27.0-33.0); MEAN CORPUSCULAR HGB CONC 30.5 g/dl (32.0-36.5); MEAN CORPUSCULAR VOLUME 90.2 fl (80.0-96.0); PLATELET COUNT, AUTOMATED 217 10^3/uL (150-450); WHITE BLOOD COUNT 14.6 10^3/uL (4.0-10.0)
[2023-10-20] MEDS: LEVOTHYROXINE 137MCG TABLET (0.137MG) PO SCH (06:39)
[2023-10-20 06:55] LABS: BLOOD UREA NITROGEN 18 MG/DL (9-23); CALCIUM LEVEL 9.2 MG/DL (8.5-10.1); CARBON DIOXIDE LEVEL 23 MMOL/L (20-31); CHLORIDE LEVEL 110 MMOL/L (98-107); CREATININE FOR GFR 0.76 MG/DL (0.55-1.30); GLOMERULAR FILTRATION RATE > 60.0 (>51); GLUCOSE, FASTING 119 MG/DL (60-100); POTASSIUM SERUM 3.9 MMOL/L (3.5-5.1); SODIUM LEVEL 141 MMOL/L (136-145)
[2023-10-20] MEDS: LevoFLOXacin 750 MG TABLET PO SCH (08:59)
[2023-10-20] MEDS: DOCUSATE SODIUM 100MG CAPSULE PO SCH ×2 (08:59→21:27)
[2023-10-20] MEDS: oxyBUTYnin 5 MG TAB PO SCH ×2 (08:59→21:28)
[2023-10-20] MEDS: PANTOPRAZOLE 40MG TAB (PROTONIX) PO SCH ×2 (08:59→21:28)
[2023-10-20] MEDS ORDERED: FUROSEMIDE 20 MG TAB PO SCH (09:00)
[2023-10-20] MEDS: NICOTINE 21MG/24HR 1 EA TRANSDERMAL TD SCH (09:00)
[2023-10-20] MEDS: GABAPENTIN 100 MG CAP PO SCH ×3 (09:00→21:27)
[2023-10-20] MEDS: RIVAROXABAN 20MG TAB (XARELTO) PO SCH (09:00)
[2023-10-20] MEDS ORDERED: predniSONE 20 MG TAB PO SCH (09:00)
[2023-10-20 13:38] VITALS: BP 133/65; TEMP 97.7; O2SAT 93
[2023-10-20] MEDS: LR 1,000 ML IV SCH (14:10)
[2023-10-20 15:46] LABS: PROCALCITONIN <0.04 ng/ml
[2023-10-20 20:12] VITALS: BP 120/74; TEMP 98.1; O2SAT 92
[2023-10-20] MEDS: DOXEPIN 25 MG CAP PO SCH (21:27)
[2023-10-20] MEDS: DOXAZOSIN MESYLATE 4 MG TAB PO SCH (21:28)
[2023-10-20] MEDS: traZODone 50 MG TAB PO SCH (21:28)
[2023-10-20] MEDS: OLANZapine 10 MG TAB PO SCH (21:28)
[2023-10-21] MEDS: LR 1,000 ML IV SCH (01:38)
[2023-10-21] MEDS: PERCOCET 5MG/325MG TAB PO PRN ×3 (03:55→18:08)
[2023-10-21] MEDS: LevoFLOXacin 750 MG TABLET PO SCH (05:09)
[2023-10-21] MEDS: LEVOTHYROXINE 137MCG TABLET (0.137MG) PO SCH (05:09)
[2023-10-21 06:47] VITALS: BP 128/90; TEMP 97.8; O2SAT 93
[2023-10-21 07:52] LABS: BASO % 0.2 % (0.0-1.0); EOS # 0.1 10^3/uL (0.0-0.5); EOS % 0.5 % (0.0-3.0); HEMOGLOBIN 10.8 g/dl (12.0-15.5); LYMPH # 2.5 10^3/uL (1.5-5.0); LYMPH % 18.2 % (24.0-44.0); MEAN CORPUSCULAR HEMOGLOBIN 27.6 pg (27.0-33.0); MEAN CORPUSCULAR HGB CONC 30.9 g/dl (32.0-36.5); MEAN CORPUSCULAR VOLUME 89.5 fl (80.0-96.0); MONO # 0.9 10^3/uL (0.0-0.8); MONO % 6.2 % (2.0-8.0); NEUTROPHILS # 10.4 10^3/uL (1.5-8.5); NEUTROPHILS % 74.4 % (36.0-66.0); PLATELET COUNT, AUTOMATED 247 10^3/uL (150-450); RED BLOOD COUNT 3.91 10^6/uL (4.00-5.40); WHITE BLOOD COUNT 13.9 10^3/uL (4.0-10.0)
[2023-10-21] MEDS: oxyBUTYnin 5 MG TAB PO SCH ×2 (08:25→20:26)
[2023-10-21] MEDS: DOCUSATE SODIUM 100MG CAPSULE PO SCH ×2 (08:25→20:26)
[2023-10-21] MEDS: RIVAROXABAN 20MG TAB (XARELTO) PO SCH (08:25)
[2023-10-21] MEDS: PANTOPRAZOLE 40MG TAB (PROTONIX) PO SCH ×2 (08:25→20:26)
[2023-10-21] MEDS: GABAPENTIN 100 MG CAP PO SCH ×3 (08:25→20:25)
[2023-10-21 08:26] LABS: BLOOD UREA NITROGEN 21 MG/DL (9-23); CALCIUM LEVEL 9.3 MG/DL (8.5-10.1); CARBON DIOXIDE LEVEL 25 MMOL/L (20-31); CHLORIDE LEVEL 109 MMOL/L (98-107); CREATININE FOR GFR 0.88 MG/DL (0.55-1.30); GLOMERULAR FILTRATION RATE > 60.0 (>51); GLUCOSE, FASTING 89 MG/DL (60-100); POTASSIUM SERUM 4.1 MMOL/L (3.5-5.1); SODIUM LEVEL 139 MMOL/L (136-145)
[2023-10-21] MEDS: predniSONE 10MG TAB PO SCH (08:26)
[2023-10-21] MEDS: NICOTINE 21MG/24HR 1 EA TRANSDERMAL TD SCH (08:27)
[2023-10-21] MEDS ORDERED: LR 1,000 ML IV SCH (15:30)
[2023-10-21] MEDS ORDERED: diphenhydrAMINE 50MG/ML VIAL IV STA (17:03)
[2023-10-21] MEDS ORDERED: methylPREDNISolone 125MG 2ML VIAL IV ONE (17:05)
[2023-10-21] MEDS ORDERED: ISOVUE-370 76% 100ML VIAL As Ordered ONE (18:05)
[2023-10-21 20:07] VITALS: BP 131/89; TEMP 97.9; O2SAT 91
[2023-10-21 20:25] VITALS: BP 133/88
[2023-10-21] MEDS: OLANZapine 10 MG TAB PO SCH (20:25)
[2023-10-21] MEDS: DOXAZOSIN MESYLATE 4 MG TAB PO SCH (20:25)
[2023-10-21] MEDS: traZODone 50 MG TAB PO SCH (20:25)
[2023-10-21] MEDS: DOXEPIN 25 MG CAP PO SCH (20:26)
[2023-10-22] MEDS: PERCOCET 5MG/325MG TAB PO PRN ×2 (05:52→14:12)
[2023-10-22] MEDS: LEVOTHYROXINE 137MCG TABLET (0.137MG) PO SCH (05:52)
[2023-10-22] MEDS: LevoFLOXacin 750 MG TABLET PO SCH (05:52)
[2023-10-22 06:45] VITALS: BP 123/73; TEMP 97.3; O2SAT 92
[2023-10-22 07:32] LABS: HEMATOCRIT 35.1 % (36.0-47.0); HEMOGLOBIN 11.1 g/dl (12.0-15.5); MEAN CORPUSCULAR HGB CONC 31.6 g/dl (32.0-36.5); MEAN CORPUSCULAR VOLUME 88.6 fl (80.0-96.0); PLATELET COUNT, AUTOMATED 250 10^3/uL (150-450); RED BLOOD COUNT 3.96 10^6/uL (4.00-5.40); WHITE BLOOD COUNT 13.4 10^3/uL (4.0-10.0)
[2023-10-22 07:44] LABS: ERYTHROCYTE SEDIMENTATION RATE 71 mm/hr (0-30)
[2023-10-22 08:00] LABS: BLOOD UREA NITROGEN 20 MG/DL (9-23); CALCIUM LEVEL 9.7 MG/DL (8.5-10.1); CARBON DIOXIDE LEVEL 24 MMOL/L (20-31); CHLORIDE LEVEL 107 MMOL/L (98-107); CHOLESTEROL LEVEL 227 MG/DL (<200); CHOLESTEROL RISK RATIO 4.41 (<5); CREATININE FOR GFR 0.75 MG/DL (0.55-1.30); GLOMERULAR FILTRATION RATE > 60.0 (>51); GLUCOSE, FASTING 112 MG/DL (60-100); HDL CHOLESTEROL 51.4 MG/DL (>40); LDL CHOLESTEROL 152.6 MG/DL (<100); MAGNESIUM LEVEL 1.9 MG/DL (1.8-2.4); NON-HDL-C 175.6 MG/DL; POTASSIUM SERUM 4.1 MMOL/L (3.5-5.1); SODIUM LEVEL 137 MMOL/L (136-145); TRIGLYCERIDES LEVEL 115 MG/DL (<150)
[2023-10-22 08:14] LABS: HEMOGLOBIN A1c 6.1 % (4.0-6.0)
[2023-10-22] MEDS: PANTOPRAZOLE 40MG TAB (PROTONIX) PO SCH (08:52)
[2023-10-22] MEDS: NICOTINE 21MG/24HR 1 EA TRANSDERMAL TD SCH (08:52)
[2023-10-22] MEDS: predniSONE 10MG TAB PO SCH (08:52)
[2023-10-22] MEDS: RIVAROXABAN 20MG TAB (XARELTO) PO SCH (08:52)
[2023-10-22] MEDS: oxyBUTYnin 5 MG TAB PO SCH (08:52)
[2023-10-22] MEDS: DOCUSATE SODIUM 100MG CAPSULE PO SCH (08:52)
[2023-10-22] MEDS: GABAPENTIN 100 MG CAP PO SCH (08:52)
[2023-10-22] MEDS ORDERED: MIRALAX *UNIT DOSE* 17GM PACKET PO SCH (09:00)
[2023-10-22] MEDS ORDERED: ASPIRIN 81MG ENTERIC TABLET PO SCH (09:00)
[2023-10-22] MEDS ORDERED: ATORVASTATIN 20 MG TAB PO SCH (09:00)
[2023-10-22] MEDS ORDERED: FURO20TA2 PO ×2 (11:07→11:16)
[2023-10-22] MEDS ORDERED: ATOR40TA75 PO (11:07)
[2023-10-22] MEDS ORDERED: CLOP75TA2 PO (11:10)
[2023-10-22] MEDS ORDERED: SYNT137T7 PO (11:10)
[2023-10-22] MEDS ORDERED: MIRA3350 PO (13:08)
[2023-10-22 14:04] VITALS: BP 105/74; TEMP 97.5; O2SAT 92
[2023-10-23] MEDS ORDERED: CLOPIDOGREL 75 MG TAB PO SCH (09:00)
== END 2023-10-22 15:25 | disposition home or self-care (01) ==
LOC: M ED 14:09 → EDBD 14:09 → INTOOBSV 19:29 → M ED INP 19:29 → ENRESERV 10-20 12:47 → M MS5PR 10-20 13:10
PROVIDERS: ADMIT Internal Medicine; ATTEND Student in an Organized Health Care Education/Training Program
DX: I73.9 Peripheral vascular disease, unspecified (principal); M62.81 Muscle weakness (generalized); I27.81 Cor pulmonale (chronic); E27.1 Primary adrenocortical insufficiency; E03.9 Hypothyroidism, unspecified; I31.39 Other pericardial effusion (noninflammatory); B96.20 Unspecified Escherichia coli [E. coli] as the cause of diseases classified elsewhere; Z86.711 Personal history of pulmonary embolism; J44.9 Chronic obstructive pulmonary disease, unspecified; F41.9 Anxiety disorder, unspecified; M79.2 Neuralgia and neuritis, unspecified; F17.218 Nicotine dependence, cigarettes, with other nicotine-induced disorders; F99 Mental disorder, not otherwise specified; N32.81 Overactive bladder; G47.00 Insomnia, unspecified; K21.9 Gastro-esophageal reflux disease without esophagitis; Z86.16 Personal history of COVID-19; Z79.899 Other long term (current) drug therapy; Z79.52 Long term (current) use of systemic steroids; Z79.01 Long term (current) use of anticoagulants; Z88.0 Allergy status to penicillin; Z88.2 Allergy status to sulfonamides; Z91.041 Radiographic dye allergy status
CPT/HCPCS: 36415; 70450; 71046; 75635; 80048; 80061; 80076; 80307; 81001; 82550; 82553; 83036; 83605; 83735; 84145; 84439; 84443; 84484; 85025; 85027; 85652; 86140; 87486; 87581; 87633; 87798; 93005; 93041; 93306; 93925; 93970; 93979; 94760; 96361; 96374; 96375; 97116; 97161; 97165; 97530; 97535; 99285; G0378; J1200; J1720; J2930; J7512; Q9967

== ENCOUNTER → 2024-01-11 | Outpatient (CLI) | payer MEDICARE, MEDICAID ==
[~2024-01-11] MED LIST changes: +ATOR40TA75 PO; +CLOP75TA2 PO; +LEVO112T2 PO; +NICO21DI37 TD; -OXYB5TAB11 PO; +OXYB5TAB14 PO; +SYNT137T7 PO
[2024-01-11 16:21] LABS: HEPATITIS B SURFACE ANTIBODY NEGATIVE (POSITIVE)
[2024-01-11 16:48] LABS: HIV 1&2 SCREEN NEGATIVE (NEGATIVE)
[2024-01-13 23:16] LABS: HCV RNA (INTERNATIONAL UNITS) 14700000 IU/mL (.); HEPATITIS A IgG TOTAL Positive (Negative); HEPATITIS B CORE ANTIBODY IGG Positive (Negative); HEPATITIS C QUANTITATION See Final Results IU/mL (.)
== END ==
LOC: M PLALAB 12:20
PROVIDERS: ATTEND Internal Medicine Infectious Disease
DX: B18.2 Chronic viral hepatitis C (principal); Z11.59 Encounter for screening for other viral diseases; F14.11 Cocaine abuse, in remission; Z72.89 Other problems related to lifestyle

== ENCOUNTER 2024-02-11 18:45 | Inpatient (IN) | payer MEDICARE, MEDICAID ==
[~2024-02-11] VITALS: Ht 170.2 cm; Wt 92.2 kg
[2024-02-11] MEDS: LIDOCAINE 2% 5ML JELLY UROJET TOP ONE (18:55)
[2024-02-11] MEDS: NS 1,000 ML IV ONE ×2 (19:00→19:58)
[2024-02-11 19:30] LABS: BASO % 0.4 % (0.0-1.0); EOS % 0.2 % (0.0-3.0); HEMOGLOBIN 11.6 g/dl (12.0-15.5); LYMPH # 1.6 10^3/uL (1.5-5.0); LYMPH % 18.1 % (24.0-44.0); MEAN CORPUSCULAR HEMOGLOBIN 26.1 pg (27.0-33.0); MEAN CORPUSCULAR HGB CONC 28.3 g/dl (32.0-36.5); MEAN CORPUSCULAR VOLUME 92.1 fl (80.0-96.0); MONO # 0.3 10^3/uL (0.0-0.8); MONO % 3.7 % (2.0-8.0); NEUTROPHILS # 6.6 10^3/uL (1.5-8.5); NEUTROPHILS % 76.7 % (36.0-66.0); PLATELET COUNT, AUTOMATED 222 10^3/uL (150-450); RED BLOOD COUNT 4.45 10^6/uL (4.00-5.40); WHITE BLOOD COUNT 8.6 10^3/uL (4.0-10.0)
[2024-02-11] MEDS: HYDROCORTISONE 100MG/2ML VIAL IV ONE (19:57)
[2024-02-11 20:14] LABS: APPEARANCE, URINE HAZY (CLEAR); BACTERIA, URINE AUTO 1+ (NEGATIVE); BILIRUBIN, URINE AUTO NEGATIVE (NEGATIVE); BLOOD, URINE BLOOD 1+ (NEGATIVE); COLOR, URINE YELLOW (YELLOW); GLUCOSE, URINE (UA) AUTO 1+ mg/dL (NEGATIVE); GRANULAR CAST, URINE AUTO 3 /LPF; KETONE, URINE AUTO TRACE mg/dL (NEGATIVE); LEUKOCYTE ESTERASE, URINE AUTO NEGATIVE (NEGATIVE); MUCUS, URINE SMALL (NEGATIVE); NITRITE, URINE AUTO NEGATIVE (NEGATIVE); PROTEIN, URINE AUTO 3+ mg/dL (NEGATIVE); RBC, URINE AUTO 4 /HPF (0-3); SPECIFIC GRAVITY URINE AUTO 1.018 (1.002-1.035); SQUAMOUS EPITHELIAL CELL UR AU 2 /HPF (0-6); UROBILINOGEN, URINE AUTO 0.2 mg/dL (0.0-2.0); WBC, URINE AUTO 5 /HPF (0-3)
[2024-02-11] MEDS: levETIRAcetam INJection 1,000 MG in D5W 100 ML IV ONE (20:17)
[2024-02-11 20:26] LABS: INR 1.7; PARTIAL THROMBOPLASTIN TIME 28.8 SECONDS (24.8-34.2); PROTHROMBIN TIME 19.4 SECONDS (12.5-14.5)
[2024-02-11 20:34] LABS: AMPHETAMINES LEVEL URINE NEGATIVE (NEGATIVE); BARBITURATES URINE NEGATIVE (NEGATIVE); COCAINE METABOLITE URINE NEGATIVE (NEGATIVE); METHADONE URINE NEGATIVE (NEGATIVE); OPIATES URINE NEGATIVE (NEGATIVE); PHENCYCLIDINE URINE NEGATIVE (NEGATIVE)
[2024-02-11 20:42] LABS: BENZODIAZEPINES URINE POSITIVE (NEGATIVE); CANNABINOIDS URINE POSITIVE (NEGATIVE)
[2024-02-11 21:25] LABS: VENOUS BASE EXCESS -7.9 (-2.0-2.0); VENOUS HCO3 17.5 MMOL/L (23.0-27.0); VENOUS O2 SATURATION 98.6 % (60.0-80.0); VENOUS PARTIAL PRESSURE CO2 35.4 mmHg (38.0-50.0); VENOUS PH 7.311 UNITS (7.330-7.430); VENOUS STANDARD HCO3 18.1 MMOL/L; VENOUS TOTAL CO2 18.6 MMOL/L (24.0-28.0)
[2024-02-11 21:52] LABS: LIPASE 20 U/L (12-53)
[2024-02-11 21:53] LABS: AMYLASE 76 U/L (30-118); CPK CREATINE PHOSPHOKINASE 64 U/L (34-145)
[2024-02-11 21:54] LABS: CK-MB VALUE MASS < 1.0 NG/ML (<3.6); MB/CK RELATIVE INDEX 1.56 (< OR =4)
[2024-02-11 21:58] LABS: FREE T4 1.02 NG/DL (0.89-1.76)
[2024-02-11 21:59] LABS: THYROID STIMULATING HORMONE 0.137 uIU/ML (0.55-4.78)
[2024-02-11 22:03] LABS: PROCALCITONIN <0.04 ng/ml
[2024-02-11 22:13] LABS: ALBUMIN 2.6 G/DL (3.2-5.2); ALKALINE PHOSPHATASE 78 U/L (46-116); ALT/SGPT 30 U/L (7.0-40); AST/SGOT 19 U/L (<34); BILIRUBIN,DIRECT < 0.1 MG/DL (<0.4); BILIRUBIN,TOTAL < 0.2 MG/DL (0.3-1.2); BLOOD UREA NITROGEN 14 MG/DL (9-23); CALCIUM LEVEL 8.5 MG/DL (8.5-10.1); CARBON DIOXIDE LEVEL 20 MMOL/L (20-31); CHLORIDE LEVEL 113 MMOL/L (98-107); CREATININE FOR GFR 0.65 MG/DL (0.55-1.30); GLOMERULAR FILTRATION RATE > 60.0 (>51); GLUCOSE, FASTING 144 MG/DL (60-100); POTASSIUM SERUM 4.1 MMOL/L (3.5-5.1); SODIUM LEVEL 138 MMOL/L (136-145); TOTAL PROTEIN 6.1 G/DL (5.7-8.2)
[2024-02-11] MEDS ORDERED: CLOP75TA99 PO (23:44)
[2024-02-11] MEDS ORDERED: LEVO137T2 PO (23:44)
[2024-02-11] MEDS ORDERED: ATOR40TA75 PO (23:44)
[2024-02-11] MEDS ORDERED: LEXA5TAB13 PO (23:44)
[2024-02-11] MEDS ORDERED: HOME MED LIST COMPLETE! XX SCH (23:50)
[2024-02-12] VITALS (9 sets, daily range): BP systolic 96–179; BP diastolic 58–96; TEMP 96.6–97.4; O2SAT 92–99
[2024-02-12 02:29] LABS: CK-MB VALUE MASS 1.4 NG/ML (<3.6)
[2024-02-12 02:30] LABS: MB/CK RELATIVE INDEX 1.68 (< OR =4)
[2024-02-12] MEDS: LEVOTHYROXINE 137MCG TABLET (0.137MG) PO SCH (06:37)
[2024-02-12 07:20] LABS: BLOOD UREA NITROGEN 12 MG/DL (9-23); CALCIUM LEVEL 9.9 MG/DL (8.5-10.1); CARBON DIOXIDE LEVEL 23 MMOL/L (20-31); CHLORIDE LEVEL 113 MMOL/L (98-107); CREATININE FOR GFR 0.64 MG/DL (0.55-1.30); GLOMERULAR FILTRATION RATE > 60.0 (>51); GLUCOSE, FASTING 98 MG/DL (60-100); POTASSIUM SERUM 4.2 MMOL/L (3.5-5.1); SODIUM LEVEL 141 MMOL/L (136-145)
[2024-02-12 07:47] LABS: HEMATOCRIT 40.6 % (36.0-47.0); HEMOGLOBIN 12.1 g/dl (12.0-15.5); MEAN CORPUSCULAR HEMOGLOBIN 26.5 pg (27.0-33.0); MEAN CORPUSCULAR HGB CONC 29.8 g/dl (32.0-36.5); MEAN CORPUSCULAR VOLUME 88.8 fl (80.0-96.0); PLATELET COUNT, AUTOMATED 196 10^3/uL (150-450); RED BLOOD COUNT 4.57 10^6/uL (4.00-5.40); WHITE BLOOD COUNT 7.4 10^3/uL (4.0-10.0)
[2024-02-12 08:00] LABS: ALBUMIN 2.9 G/DL (3.2-5.2); ALKALINE PHOSPHATASE 87 U/L (46-116); ALT/SGPT 26 U/L (7.0-40); AST/SGOT 20 U/L (<34); BILIRUBIN,TOTAL 0.3 MG/DL (0.3-1.2); TOTAL PROTEIN 6.6 G/DL (5.7-8.2)
[2024-02-12] MEDS: ESCITALOPRAM OXALATE 5MG TABLET (LEXAPRO) PO SCH (08:26)
[2024-02-12] MEDS: levETIRAcetam 250MG TABLET (KEPPRA) PO SCH (08:26)
[2024-02-12] MEDS: oxyBUTYnin 5 MG TAB PO SCH (08:27)
[2024-02-12] MEDS: predniSONE 10MG TAB PO SCH (08:27)
[2024-02-12] MEDS: ATORVASTATIN 20 MG TAB PO SCH (08:27)
[2024-02-12] MEDS: PANTOPRAZOLE 40MG TAB (PROTONIX) PO SCH (08:27)
[2024-02-12] MEDS: CLOPIDOGREL 75 MG TAB PO SCH (08:27)
[2024-02-12] MEDS ORDERED: levETIRAcetam 250MG TABLET (KEPPRA) PO SCH (09:00)
[2024-02-12] MEDS: CEFEPIME HCL 2 GM in D5W MINI-BAG PLUS 50 ML IV SCH (16:44)
[2024-02-12] MEDS: NS 1,000 ML IV ONE (16:44)
[2024-02-12] MEDS: VANCOMYCIN HCL 1,000 MG, VIAL MATE ADAPTER 1 EACH in D5W 250 ML IV ONE (17:29)
[2024-02-12] MEDS: RIVAROXABAN 20MG TAB (XARELTO) PO SCH (18:28)
[2024-02-12] MEDS: VANCOMYCIN HCL 750 MG, VIAL MATE ADAPTER 1 EACH in D5W 250 ML IV ONE (18:29)
[2024-02-12] MEDS: NS 1,000 ML IV SCH (20:17)
[2024-02-12] MEDS: OLANZapine 10 MG TAB PO SCH (20:18)
[2024-02-12] MEDS: DOXAZOSIN MESYLATE 4 MG TAB PO SCH (21:00)
[2024-02-13] VITALS (7 sets, daily range): BP systolic 113–181; BP diastolic 74–84; TEMP 97–98; O2SAT 95–97
[2024-02-13] MEDS: VANCOMYCIN HCL 1,000 MG, VIAL MATE ADAPTER 1 EACH in D5W 250 ML IV SCH ×2 (00:45→11:52)
[2024-02-13 06:38] LABS: HEMOGLOBIN 10.7 g/dl (12.0-15.5); MEAN CORPUSCULAR HEMOGLOBIN 26.3 pg (27.0-33.0); MEAN CORPUSCULAR HGB CONC 30.6 g/dl (32.0-36.5); PLATELET COUNT, AUTOMATED 204 10^3/uL (150-450); RED BLOOD COUNT 4.07 10^6/uL (4.00-5.40); WHITE BLOOD COUNT 8.7 10^3/uL (4.0-10.0)
[2024-02-13 07:13] LABS: BLOOD UREA NITROGEN 11 MG/DL (9-23); CALCIUM LEVEL 9.9 MG/DL (8.5-10.1); CARBON DIOXIDE LEVEL 24 MMOL/L (20-31); CHLORIDE LEVEL 114 MMOL/L (98-107); CREATININE FOR GFR 0.81 MG/DL (0.55-1.30); GLOMERULAR FILTRATION RATE > 60.0 (>51); GLUCOSE, FASTING 86 MG/DL (60-100); POTASSIUM SERUM 3.7 MMOL/L (3.5-5.1); SODIUM LEVEL 144 MMOL/L (136-145)
[2024-02-13] MEDS: NICOTINE 21MG/24HR 1 EA TRANSDERMAL TD SCH (08:46)
[2024-02-13] MEDS ORDERED: LORazepam 2 MG/ML 1ML VIAL IV PRN (15:00)
[2024-02-14 03:11] VITALS: BP 124/81; TEMP 97.5; O2SAT 95
[2024-02-14] MEDS: HALOPERIDOL 5MG/ML 1ML VIAL IM STA (03:19)
[2024-02-14] MEDS: LORazepam 2 MG/ML 1ML VIAL IM STA (04:56)
[2024-02-14 05:37] LABS: HEMATOCRIT 37.5 % (36.0-47.0); HEMOGLOBIN 11.6 g/dl (12.0-15.5); MEAN CORPUSCULAR HGB CONC 30.9 g/dl (32.0-36.5); MEAN CORPUSCULAR VOLUME 83.9 fl (80.0-96.0); PLATELET COUNT, AUTOMATED 213 10^3/uL (150-450); RED BLOOD COUNT 4.47 10^6/uL (4.00-5.40); WHITE BLOOD COUNT 9.3 10^3/uL (4.0-10.0)
[2024-02-14 06:09] LABS: BLOOD UREA NITROGEN 9 MG/DL (9-23); CALCIUM LEVEL 10.6 MG/DL (8.5-10.1); CARBON DIOXIDE LEVEL 23 MMOL/L (20-31); CHLORIDE LEVEL 108 MMOL/L (98-107); CREATININE FOR GFR 0.68 MG/DL (0.55-1.30); GLOMERULAR FILTRATION RATE > 60.0 (>51); GLUCOSE, FASTING 117 MG/DL (60-100); POTASSIUM SERUM 3.3 MMOL/L (3.5-5.1); SODIUM LEVEL 140 MMOL/L (136-145)
[2024-02-14 07:20] VITALS: BP 105/55; TEMP 96.9; O2SAT 100
[2024-02-14 07:26] VITALS: BP 136/91; TEMP 97.8; O2SAT 95
[2024-02-14] MEDS: POTASSIUM CHLORIDE 10MEQ SR TABLET PO ONE (08:04)
[2024-02-14] MEDS: cefTRIAXone SOD 1 GM in D5W MINI-BAG PLUS 50 ML IV SCH (12:19)
[2024-02-14 16:02] VITALS: BP 118/92; TEMP 97.8; O2SAT 94
[2024-02-14 20:02] VITALS: BP 136/63; TEMP 97.8; O2SAT 95
[2024-02-15 04:53] VITALS: BP 112/58; TEMP 97; O2SAT 94
[2024-02-15] MEDS: NS 1,000 ML IV SCH (06:44)
[2024-02-15 06:47] LABS: HEMATOCRIT 39.1 % (36.0-47.0); HEMOGLOBIN 12.1 g/dl (12.0-15.5); MEAN CORPUSCULAR HGB CONC 30.9 g/dl (32.0-36.5); MEAN CORPUSCULAR VOLUME 83.9 fl (80.0-96.0); PLATELET COUNT, AUTOMATED 234 10^3/uL (150-450); RED BLOOD COUNT 4.66 10^6/uL (4.00-5.40); WHITE BLOOD COUNT 9.5 10^3/uL (4.0-10.0)
[2024-02-15 07:25] LABS: BLOOD UREA NITROGEN 19 MG/DL (9-23); CALCIUM LEVEL 9.7 MG/DL (8.5-10.1); CARBON DIOXIDE LEVEL 25 MMOL/L (20-31); CHLORIDE LEVEL 108 MMOL/L (98-107); CREATININE FOR GFR 0.73 MG/DL (0.55-1.30); GLOMERULAR FILTRATION RATE > 60.0 (>51); GLUCOSE, FASTING 100 MG/DL (60-100); SODIUM LEVEL 140 MMOL/L (136-145); TOTAL 25(OH) VITAMIN D 28.1 NG/ML (20.0-100.0)
[2024-02-15 07:47] VITALS: BP 125/66; TEMP 97; O2SAT 96
[2024-02-15] MEDS: POTASSIUM CHLORIDE 10MEQ SR TABLET PO ONE ×2 (08:20→10:26)
[2024-02-15 11:58] VITALS: BP 112/60; TEMP 97.2; O2SAT 96
[2024-02-15 15:45] VITALS: BP 114/68; TEMP 96.8; O2SAT 97
[2024-02-15 19:48] VITALS: BP 118/93; TEMP 96.9; O2SAT 96
[2024-02-15 23:34] VITALS: BP 118/93
[2024-02-15] MEDS: DOXAZOSIN MESYLATE 1 MG TAB PO PRN (23:34)
[2024-02-16 03:55] VITALS: BP 154/70; TEMP 97; O2SAT 94
[2024-02-16 06:38] LABS: HEMATOCRIT 35.6 % (36.0-47.0); HEMOGLOBIN 10.8 g/dl (12.0-15.5); MEAN CORPUSCULAR HEMOGLOBIN 26.3 pg (27.0-33.0); MEAN CORPUSCULAR HGB CONC 30.3 g/dl (32.0-36.5); MEAN CORPUSCULAR VOLUME 86.6 fl (80.0-96.0); PLATELET COUNT, AUTOMATED 217 10^3/uL (150-450); RED BLOOD COUNT 4.11 10^6/uL (4.00-5.40); WHITE BLOOD COUNT 9.7 10^3/uL (4.0-10.0)
[2024-02-16 07:06] LABS: BLOOD UREA NITROGEN 17 MG/DL (9-23); CALCIUM LEVEL 9.8 MG/DL (8.5-10.1); CARBON DIOXIDE LEVEL 22 MMOL/L (20-31); CHLORIDE LEVEL 112 MMOL/L (98-107); CREATININE FOR GFR 0.78 MG/DL (0.55-1.30); GLOMERULAR FILTRATION RATE > 60.0 (>51); GLUCOSE, FASTING 109 MG/DL (60-100); POTASSIUM SERUM 4.2 MMOL/L (3.5-5.1); SODIUM LEVEL 143 MMOL/L (136-145)
[2024-02-16 07:42] VITALS: BP 141/67; O2SAT 96
[2024-02-16] MEDS ORDERED: KEPP1TAB2 PO (11:20)
[2024-02-16] MEDS ORDERED: BACI1TAB21 PO (11:22)
[2024-02-16] MEDS ORDERED: CEFD1CAP9 PO (11:22)
== END 2024-02-16 15:48 | disposition home or self-care (01) | DRG 689 ==
LOC: EDBD 18:45 → M ED 18:45 → M ED INP 18:46 → M PCU 02-12 03:31 → OBSVTOIN 02-12 12:37
PROVIDERS: ADMIT Internal Medicine; ATTEND Internal Medicine
DX: N39.0 Urinary tract infection, site not specified (principal); G93.41 Metabolic encephalopathy; E87.20 Acidosis, unspecified; E27.1 Primary adrenocortical insufficiency; G40.909 Epilepsy, unspecified, not intractable, without status epilepticus; K73.9 Chronic hepatitis, unspecified; I25.10 Atherosclerotic heart disease of native coronary artery without angina pectoris; F41.9 Anxiety disorder, unspecified; E86.0 Dehydration; F31.9 Bipolar disorder, unspecified; B96.1 Klebsiella pneumoniae [K. pneumoniae] as the cause of diseases classified elsewhere; F17.210 Nicotine dependence, cigarettes, uncomplicated; I95.9 Hypotension, unspecified; K21.9 Gastro-esophageal reflux disease without esophagitis; E03.9 Hypothyroidism, unspecified; J44.9 Chronic obstructive pulmonary disease, unspecified; G47.00 Insomnia, unspecified; S02.2XXA Fracture of nasal bones, initial encounter for closed fracture; W01.0XXA Fall on same level from slipping, tripping and stumbling without subsequent striking against object, initial encounter; Y92.009 Unspecified place in unspecified non-institutional (private) residence as the place of occurrence of the external cause; E87.5 Hyperkalemia; I10 Essential (primary) hypertension; N32.81 Overactive bladder; Z86.73 Personal history of transient ischemic attack (TIA), and cerebral infarction without residual deficits; Z90.49 Acquired absence of other specified parts of digestive tract; Z90.79 Acquired absence of other genital organ(s); Z98.82 Breast implant status; Z79.890 Hormone replacement therapy; Z79.52 Long term (current) use of systemic steroids; Z79.899 Other long term (current) drug therapy; Z88.0 Allergy status to penicillin; Z88.2 Allergy status to sulfonamides; Z91.041 Radiographic dye allergy status

== ENCOUNTER 2024-05-27 22:01 | Inpatient (IN) | payer MEDICARE, MEDICAID ==
[~2024-05-27] VITALS: Ht 172.7 cm; Wt 95.5 kg
[~2024-05-27 22:01] MED LIST changes: +BACI1TAB21 PO; +CEFD1CAP9 PO; +CLOP75TA99 PO; +KEPP1TAB2 PO; +LEVO137T2 PO; +LEXA5TAB13 PO; -OLAN20TA14 PO; +OLAN20TA53 PO; +ONDA-282 SL; -ONDA4TAB6 SL
[2024-05-27 23:37] LABS: BASO # 0.1 10^3/uL (0.0-0.2); BASO % 0.7 % (0.0-1.0); EOS # 0.1 10^3/uL (0.0-0.5); EOS % 1.1 % (0.0-3.0); HEMATOCRIT 32.5 % (36.0-47.0); HEMOGLOBIN 10.2 g/dl (12.0-15.5); LYMPH # 2.5 10^3/uL (1.5-5.0); LYMPH % 21.7 % (24.0-44.0); MEAN CORPUSCULAR HGB CONC 31.4 g/dl (32.0-36.5); MONO # 0.9 10^3/uL (0.0-0.8); MONO % 8.3 % (2.0-8.0); NEUTROPHILS # 7.7 10^3/uL (1.5-8.5); NEUTROPHILS % 67.7 % (36.0-66.0); PLATELET COUNT, AUTOMATED 223 10^3/uL (150-450); RED BLOOD COUNT 3.78 10^6/uL (4.00-5.40); WHITE BLOOD COUNT 11.4 10^3/uL (4.0-10.0)
[2024-05-27 23:55] LABS: CK-MB VALUE MASS < 1.0 NG/ML (<3.6); ETHYL ALCOHOL (ETHANOL) < 0.003 % (0.000-0.010)
[2024-05-27 23:56] LABS: CPK CREATINE PHOSPHOKINASE 284 U/L (34-145); MB/CK RELATIVE INDEX 0.35 (< OR =4)
[2024-05-27 23:57] LABS: ALBUMIN 3.5 G/DL (3.2-5.2); ALKALINE PHOSPHATASE 134 U/L (46-116); ALT/SGPT 13 U/L (7.0-40); AST/SGOT 13 U/L (<34); BILIRUBIN,DIRECT < 0.1 MG/DL (<0.4); BILIRUBIN,TOTAL 0.2 MG/DL (0.3-1.2); BLOOD UREA NITROGEN 20 MG/DL (9-23); CALCIUM LEVEL 9.5 MG/DL (8.3-10.6); CARBON DIOXIDE LEVEL 25 MMOL/L (20-31); CHLORIDE LEVEL 107 MMOL/L (98-107); CREATININE FOR GFR 0.79 MG/DL (0.55-1.30); GLOMERULAR FILTRATION RATE > 60.0 (>45); GLUCOSE, FASTING 99 MG/DL (74-106); POTASSIUM SERUM 3.9 MMOL/L (3.5-5.1); SALICYLATE LEVEL < 3.0 MG/DL (<30); SODIUM LEVEL 139 MMOL/L (136-145); TOTAL PROTEIN 6.7 G/DL (5.7-8.2)
[2024-05-28] VITALS (8 sets, daily range): BP systolic 102–127; BP diastolic 50–64; TEMP 97.3–98.4; O2SAT 87–96
[2024-05-28 00:36] LABS: OSMOLALITY SERUM 290 MOSM/KG (275-295)
[2024-05-28] MEDS: ASPIRIN 81MG CHEW TABLET PO ONE (01:10)
[2024-05-28] MEDS: LevoFLOXacin IV 750 MG in IV 1 EA IV ONE (01:10)
[2024-05-28] MEDS: NS 1,000 ML IV ONE (01:10)
[2024-05-28] MEDS ORDERED: ACETAMINOPHEN TAB 650MG DOSE (2X325MG) PO PRN (01:35)
[2024-05-28] MEDS ORDERED: MAALOX 30 ML SUSP *UDC PO PRN (01:35)
[2024-05-28] MEDS ORDERED: MOM 30ML SUSPENSION UDC PO PRN (01:35)
[2024-05-28] MEDS ORDERED: OMEP-173 PO (01:41)
[2024-05-28] MEDS ORDERED: PRAZ5CAP PO (01:41)
[2024-05-28] MEDS ORDERED: HYDR1CAP25 PO (01:42)
[2024-05-28] MEDS ORDERED: HOME MED LIST COMPLETE! XX SCH (01:45)
[2024-05-28 02:01] LABS: MAGNESIUM LEVEL 1.9 MG/DL (1.8-2.4); PHOSPHORUS LEVEL 4.5 MG/DL (2.4-5.1)
[2024-05-28 03:18] LABS: HEMOGLOBIN A1c 5.7 % (4.0-6.0)
[2024-05-28] MEDS: NICOTINE 21MG/24HR 1 EA TRANSDERMAL TD ONE (03:22)
[2024-05-28 03:23] LABS: PROCALCITONIN <0.04 ng/ml
[2024-05-28 03:24] LABS: VENOUS BASE EXCESS -1.1 (-2.0-2.0); VENOUS HCO3 24.4 MMOL/L (23.0-27.0); VENOUS O2 SATURATION 97.9 % (60.0-80.0); VENOUS PARTIAL PRESSURE CO2 43.9 mmHg (38.0-50.0); VENOUS PH 7.362 UNITS (7.330-7.430); VENOUS STANDARD HCO3 23.5 MMOL/L; VENOUS TOTAL CO2 25.7 MMOL/L (24.0-28.0)
[2024-05-28] MEDS: ALBUTEROL SULFATE 2.5MG/0.5ML INH NEB SOLN NEB PRN (03:30)
[2024-05-28 03:55] LABS: CK-MB VALUE MASS < 1.0 NG/ML (<3.6)
[2024-05-28 03:56] LABS: CPK CREATINE PHOSPHOKINASE 228 U/L (34-145); MB/CK RELATIVE INDEX 0.43 (< OR =4)
[2024-05-28 04:17] LABS: AMPHETAMINES LEVEL URINE NEGATIVE (NEGATIVE); BARBITURATES URINE NEGATIVE (NEGATIVE); BENZODIAZEPINES URINE NEGATIVE (NEGATIVE); CANNABINOIDS URINE NEGATIVE (NEGATIVE); COCAINE METABOLITE URINE NEGATIVE (NEGATIVE); METHADONE URINE NEGATIVE (NEGATIVE); OPIATES URINE NEGATIVE (NEGATIVE); PHENCYCLIDINE URINE NEGATIVE (NEGATIVE)
[2024-05-28] MEDS: LEVOTHYROXINE 137MCG TABLET (0.137MG) PO SCH (06:32)
[2024-05-28 08:07] LABS: BASO # 0.1 10^3/uL (0.0-0.2); BASO % 0.6 % (0.0-1.0); EOS # 0.2 10^3/uL (0.0-0.5); EOS % 2.2 % (0.0-3.0); HEMATOCRIT 34.2 % (36.0-47.0); HEMOGLOBIN 10.6 g/dl (12.0-15.5); LYMPH # 2.2 10^3/uL (1.5-5.0); LYMPH % 22.7 % (24.0-44.0); MEAN CORPUSCULAR HEMOGLOBIN 26.9 pg (27.0-33.0); MEAN CORPUSCULAR VOLUME 86.8 fl (80.0-96.0); MONO # 0.9 10^3/uL (0.0-0.8); MONO % 8.7 % (2.0-8.0); NEUTROPHILS # 6.4 10^3/uL (1.5-8.5); NEUTROPHILS % 65.5 % (36.0-66.0); PLATELET COUNT, AUTOMATED 213 10^3/uL (150-450); RED BLOOD COUNT 3.94 10^6/uL (4.00-5.40); WHITE BLOOD COUNT 9.7 10^3/uL (4.0-10.0)
[2024-05-28] MEDS: IPRATROPIUM 0.5MG/ALBUTEROL 2.5MG INH SOL UD 3ML (DUONEB) NEB SCH (08:29)
[2024-05-28 08:34] LABS: BLOOD UREA NITROGEN 16 MG/DL (9-23); CALCIUM LEVEL 8.8 MG/DL (8.3-10.6); CARBON DIOXIDE LEVEL 25 MMOL/L (20-31); CHLORIDE LEVEL 112 MMOL/L (98-107); CHOLESTEROL LEVEL 153 MG/DL (<200); CHOLESTEROL RISK RATIO 2.97 (<5); CREATININE FOR GFR 0.76 MG/DL (0.55-1.30); GLOMERULAR FILTRATION RATE > 60.0 (>45); GLUCOSE, FASTING 79 MG/DL (74-106); HDL CHOLESTEROL 51.4 MG/DL (>40); MAGNESIUM LEVEL 1.9 MG/DL (1.8-2.4); NON-HDL-C 101.6 MG/DL; POTASSIUM SERUM 3.9 MMOL/L (3.5-5.1); SODIUM LEVEL 142 MMOL/L (136-145); TRIGLYCERIDES LEVEL 113 MG/DL (<150)
[2024-05-28] MEDS: DOCUSATE SODIUM 100MG CAPSULE PO SCH (09:27)
[2024-05-28] MEDS: ESCITALOPRAM OXALATE 5MG TABLET (LEXAPRO) PO SCH (09:27)
[2024-05-28] MEDS: levETIRAcetam 250MG TABLET (KEPPRA) PO SCH (09:27)
[2024-05-28] MEDS: oxyBUTYnin 5 MG TAB PO SCH (09:27)
[2024-05-28] MEDS: OMEPRAZOLE 20MG CAP PO SCH (09:27)
[2024-05-28] MEDS: CLOPIDOGREL 75 MG TAB PO SCH (09:27)
[2024-05-28] MEDS: RIVAROXABAN 20MG TAB (XARELTO) PO SCH (18:54)
[2024-05-28] MEDS: LORazepam 2 MG/ML 1ML VIAL IV ONE (19:00)
[2024-05-28] MEDS: ATORVASTATIN 20 MG TAB PO SCH (20:49)
[2024-05-28] MEDS: PRAZOSIN 1 MG CAP PO SCH (21:02)
[2024-05-28] MEDS: cefTRIAXone SOD 1 GM in D5W MINI-BAG PLUS 50 ML IV SCH (23:17)
[2024-05-29] MEDS ORDERED: LevoFLOXacin IV 750 MG in IV 1 EA IV SCH
[2024-05-29 00:45] VITALS: BP 127/59; TEMP 97.3; O2SAT 93
[2024-05-29 03:15] VITALS: BP 108/53; TEMP 97; O2SAT 95
[2024-05-29 07:26] LABS: BASO # 0.1 10^3/uL (0.0-0.2); BASO % 0.7 % (0.0-1.0); EOS # 0.3 10^3/uL (0.0-0.5); EOS % 2.6 % (0.0-3.0); HEMATOCRIT 32.3 % (36.0-47.0); HEMOGLOBIN 9.9 g/dl (12.0-15.5); LYMPH # 2.5 10^3/uL (1.5-5.0); LYMPH % 25.2 % (24.0-44.0); MEAN CORPUSCULAR HEMOGLOBIN 26.7 pg (27.0-33.0); MEAN CORPUSCULAR HGB CONC 30.7 g/dl (32.0-36.5); MEAN CORPUSCULAR VOLUME 87.1 fl (80.0-96.0); MONO # 0.8 10^3/uL (0.0-0.8); MONO % 8.5 % (2.0-8.0); NEUTROPHILS # 6.1 10^3/uL (1.5-8.5); NEUTROPHILS % 62.6 % (36.0-66.0); PLATELET COUNT, AUTOMATED 218 10^3/uL (150-450); RED BLOOD COUNT 3.71 10^6/uL (4.00-5.40); WHITE BLOOD COUNT 9.7 10^3/uL (4.0-10.0)
[2024-05-29 07:35] VITALS: BP 152/70; TEMP 97.6; O2SAT 95
[2024-05-29 07:46] LABS: BLOOD UREA NITROGEN 19 MG/DL (9-23); CALCIUM LEVEL 9.5 MG/DL (8.3-10.6); CARBON DIOXIDE LEVEL 26 MMOL/L (20-31); CHLORIDE LEVEL 109 MMOL/L (98-107); CREATININE FOR GFR 0.77 MG/DL (0.55-1.30); GLOMERULAR FILTRATION RATE > 60.0 (>45); GLUCOSE, FASTING 81 MG/DL (74-106); POTASSIUM SERUM 4.2 MMOL/L (3.5-5.1); SODIUM LEVEL 138 MMOL/L (136-145)
[2024-05-29 11:47] VITALS: BP 138/65; TEMP 97.4; O2SAT 98
[2024-05-29] MEDS ORDERED: LEVO1TAB40 PO (11:47)
[2024-05-29] MEDS ORDERED: LEVO750T14 PO (13:18)
== END 2024-05-29 13:32 | disposition home or self-care (01) | DRG 690 ==
LOC: M ED 22:01 → M ED INP 05-28 01:33 → M PCU 05-28 13:43
PROVIDERS: ADMIT Family Medicine; ATTEND Family Medicine
PROC: B246ZZZ Ultrasonography of Right and Left Heart (ICD-10-PCS; principal; 2024-05-28)
DX: N39.0 Urinary tract infection, site not specified (principal); I69.354 Hemiplegia and hemiparesis following cerebral infarction affecting left non-dominant side; J44.1 Chronic obstructive pulmonary disease with (acute) exacerbation; G93.40 Encephalopathy, unspecified; B96.20 Unspecified Escherichia coli [E. coli] as the cause of diseases classified elsewhere; Z11.52 Encounter for screening for COVID-19; K21.9 Gastro-esophageal reflux disease without esophagitis; K22.70 Barrett's esophagus without dysplasia; F41.9 Anxiety disorder, unspecified; F17.210 Nicotine dependence, cigarettes, uncomplicated; R26.89 Other abnormalities of gait and mobility; E03.9 Hypothyroidism, unspecified; G47.00 Insomnia, unspecified; I10 Essential (primary) hypertension; M54.9 Dorsalgia, unspecified; Z90.49 Acquired absence of other specified parts of digestive tract; Z90.79 Acquired absence of other genital organ(s); Z98.82 Breast implant status; Z79.890 Hormone replacement therapy; Z79.899 Other long term (current) drug therapy; Z88.0 Allergy status to penicillin; Z91.041 Radiographic dye allergy status; I36.1 Nonrheumatic tricuspid (valve) insufficiency; I48.0 Paroxysmal atrial fibrillation; G40.909 Epilepsy, unspecified, not intractable, without status epilepticus; N32.81 Overactive bladder; F39 Unspecified mood [affective] disorder

== ENCOUNTER → 2024-06-12 | Outpatient (REF) | payer MEDICARE, MEDICAID ==
[~2024-06-12] MED LIST changes: +HYDR1CAP25 PO; +LEVO750T14 PO; +OMEP-173 PO; +PRAZ5CAP PO
[2024-06-12 18:16] LABS: APPEARANCE, URINE CLEAR (CLEAR); BACTERIA, URINE AUTO NEGATIVE (NEGATIVE); BILIRUBIN, URINE AUTO NEGATIVE (NEGATIVE); BLOOD, URINE BLOOD NEGATIVE (NEGATIVE); COLOR, URINE YELLOW (YELLOW); GLUCOSE, URINE (UA) AUTO NEGATIVE (NEGATIVE); KETONE, URINE AUTO NEGATIVE (NEGATIVE); LEUKOCYTE ESTERASE, URINE AUTO NEGATIVE (NEGATIVE); MUCUS, URINE SMALL (NEGATIVE); NITRITE, URINE AUTO NEGATIVE (NEGATIVE); PROTEIN, URINE AUTO NEGATIVE (NEGATIVE); RBC, URINE AUTO 0 /HPF (0-3); SPECIFIC GRAVITY URINE AUTO 1.011 (1.002-1.035); SQUAMOUS EPITHELIAL CELL UR AU 2 /HPF (0-6); UROBILINOGEN, URINE AUTO 0.2 mg/dL (0.0-2.0); WBC, URINE AUTO 1 /HPF (0-3)
== END ==
LOC: M LAB REF 17:55
PROVIDERS: ATTEND Physician Assistant Medical
DX: N39.0 Urinary tract infection, site not specified (principal)

== ENCOUNTER 2024-06-15 20:37 | Emergency (ER) | payer MEDICARE, MEDICAID ==
[~2024-06-15] VITALS: Ht 172.7 cm; Wt 91.1 kg
[2024-06-15 22:16] LABS: BASO % 0.3 % (0.0-1.0); EOS % 0.1 % (0.0-3.0); HEMOGLOBIN 10.9 g/dl (12.0-15.5); LYMPH # 2.4 10^3/uL (1.5-5.0); LYMPH % 22.9 % (24.0-44.0); MEAN CORPUSCULAR HEMOGLOBIN 26.7 pg (27.0-33.0); MEAN CORPUSCULAR HGB CONC 30.3 g/dl (32.0-36.5); MEAN CORPUSCULAR VOLUME 88.2 fl (80.0-96.0); MONO # 0.7 10^3/uL (0.0-0.8); MONO % 6.3 % (2.0-8.0); NEUTROPHILS # 7.4 10^3/uL (1.5-8.5); PLATELET COUNT, AUTOMATED 245 10^3/uL (150-450); RED BLOOD COUNT 4.08 10^6/uL (4.00-5.40); WHITE BLOOD COUNT 10.5 10^3/uL (4.0-10.0)
[2024-06-15] MEDS: methylPREDNISolone 125MG 2ML VIAL IV ONE (22:33)
[2024-06-15 22:34] LABS: ALBUMIN 3.4 G/DL (3.2-5.2); BILIRUBIN,DIRECT 0.1 MG/DL (<0.4); BILIRUBIN,TOTAL 0.4 MG/DL (0.3-1.2); TOTAL PROTEIN 7.1 G/DL (5.7-8.2)
[2024-06-15] MEDS ORDERED: ISOVUE-370 76% 100ML VIAL As Ordered ONE (23:00)
[2024-06-15] MEDS: diphenhydrAMINE 50MG/ML VIAL IV STA (23:04)
[2024-06-16] MEDS: ACETAMINOPHEN 500 MG TAB PO ONE (00:04)
[2024-06-16] MEDS ORDERED: FLOM0.4C39 PO (01:02)
[2024-06-16 01:11] VITALS: BP 130/70; TEMP 97.6; O2SAT 95
== END 2024-06-16 01:42 | disposition home or self-care (01) ==
LOC: M ED 20:37
DX: N20.1 Calculus of ureter (principal); J44.9 Chronic obstructive pulmonary disease, unspecified; B19.20 Unspecified viral hepatitis C without hepatic coma; F17.210 Nicotine dependence, cigarettes, uncomplicated; Z88.0 Allergy status to penicillin; Z88.2 Allergy status to sulfonamides; Z91.041 Radiographic dye allergy status; Z79.899 Other long term (current) drug therapy
CPT/HCPCS: 74177; 80047; 80076; 81001; 83690; 85025; 96374; 96375; 99284; J1200; J2919; Q9967

== ENCOUNTER → 2024-06-23 | Outpatient (CLI) | payer MEDICARE, MEDICAID ==
[~2024-06-23] MED LIST changes: +ALBU8.5H INH; +ATIV1TAB10 PO; +DOXE75CA2 PO; +FLOM0.4C39 PO; +IPRA0.00 INH; +LAMO100T3 PO; +LEVE500T5 PO; +LEVE750T5 PO; +LEXA1TAB2 PO; +PRAZ2CAP PO; +PRED20TA PO; +QUET100T2 PO; +TAMS1CAP17 PO
[2024-06-23 13:41] LABS: BASO % 0.3 % (0.0-1.0); EOS % 0.4 % (0.0-3.0); HEMATOCRIT 36.5 % (36.0-47.0); HEMOGLOBIN 11.3 g/dl (12.0-15.5); LYMPH # 1.5 10^3/uL (1.5-5.0); LYMPH % 16.5 % (24.0-44.0); MEAN CORPUSCULAR HEMOGLOBIN 26.8 pg (27.0-33.0); MEAN CORPUSCULAR VOLUME 86.7 fl (80.0-96.0); MONO % 10.3 % (2.0-8.0); NEUTROPHILS # 6.7 10^3/uL (1.5-8.5); NEUTROPHILS % 72.2 % (36.0-66.0); PLATELET COUNT, AUTOMATED 221 10^3/uL (150-450); RED BLOOD COUNT 4.21 10^6/uL (4.00-5.40); WHITE BLOOD COUNT 9.3 10^3/uL (4.0-10.0)
[2024-06-23 13:48] LABS: ALBUMIN 3.4 G/DL (3.2-5.2); ALKALINE PHOSPHATASE 125 U/L (46-116); ALT/SGPT 14 U/L (7.0-40); AST/SGOT 10 U/L (<34); BILIRUBIN,TOTAL 0.3 MG/DL (0.3-1.2); BLOOD UREA NITROGEN 10 MG/DL (9-23); CALCIUM LEVEL 10.1 MG/DL (8.3-10.6); CARBON DIOXIDE LEVEL 26 MMOL/L (20-31); CHLORIDE LEVEL 109 MMOL/L (98-107); CREATININE FOR GFR 0.68 MG/DL (0.55-1.30); GLOMERULAR FILTRATION RATE > 60.0 (>45); GLUCOSE, FASTING 101 MG/DL (74-106); POTASSIUM SERUM 4.3 MMOL/L (3.5-5.1); SODIUM LEVEL 138 MMOL/L (136-145); TOTAL PROTEIN 7.2 G/DL (5.7-8.2)
[2024-06-24 22:43] LABS: HCV RNA QUANTITATION <15 NOT DETECTED IU/mL (NOT DETECTED); HCV RNA log10 <1.18 NOT DETECTED Log IU/mL (NOT DETECTED)
== END ==
LOC: M PLALAB 11:45
PROVIDERS: ATTEND Internal Medicine Infectious Disease
DX: B18.2 Chronic viral hepatitis C (principal)

== ENCOUNTER 2024-06-25 19:47 | Emergency (ER) | payer MEDICARE, MEDICAID ==
[~2024-06-25] VITALS: Ht 172.7 cm; Wt 94.4 kg
[~2024-06-25 19:47] MED LIST changes: -ALBU8.5H INH; -ATIV1TAB10 PO; -DOXE75CA2 PO; -IPRA0.00 INH; -LEVE500T5 PO; -LEVE750T5 PO; -LEXA1TAB2 PO; -PRAZ2CAP PO; -PRED20TA PO; -QUET100T2 PO; -TAMS1CAP17 PO
[2024-06-25 21:41] LABS: HEMATOCRIT 31.8 % (36.0-47.0); HEMOGLOBIN 9.8 g/dl (12.0-15.5); MEAN CORPUSCULAR HEMOGLOBIN 26.6 pg (27.0-33.0); MEAN CORPUSCULAR HGB CONC 30.8 g/dl (32.0-36.5); MEAN CORPUSCULAR VOLUME 86.2 fl (80.0-96.0); PLATELET COUNT, AUTOMATED 197 10^3/uL (150-450); RED BLOOD COUNT 3.69 10^6/uL (4.00-5.40); WHITE BLOOD COUNT 9.4 10^3/uL (4.0-10.0)
[2024-06-25 22:13] LABS: ETHYL ALCOHOL (ETHANOL) 0.005 % (0.000-0.010)
[2024-06-25 22:14] LABS: SALICYLATE LEVEL < 3.0 MG/DL (<30)
[2024-06-25 22:33] LABS: ALBUMIN 3.1 G/DL (3.2-5.2); ALKALINE PHOSPHATASE 120 U/L (46-116); ALT/SGPT 15 U/L (7.0-40); AST/SGOT 11 U/L (<34); BILIRUBIN,DIRECT < 0.1 MG/DL (<0.4); BILIRUBIN,TOTAL 0.2 MG/DL (0.3-1.2); BLOOD UREA NITROGEN 10 MG/DL (9-23); CALCIUM LEVEL 9.3 MG/DL (8.3-10.6); CARBON DIOXIDE LEVEL 22 MMOL/L (20-31); CHLORIDE LEVEL 111 MMOL/L (98-107); CK-MB VALUE MASS < 1.0 NG/ML (<3.6); CPK CREATINE PHOSPHOKINASE 73 U/L (34-145); CREATININE FOR GFR 0.73 MG/DL (0.55-1.30); GLOMERULAR FILTRATION RATE > 60.0 (>45); GLUCOSE, FASTING 118 MG/DL (74-106); MB/CK RELATIVE INDEX 1.36 (< OR =4); POTASSIUM SERUM 4.3 MMOL/L (3.5-5.1); SODIUM LEVEL 139 MMOL/L (136-145); THYROID STIMULATING HORMONE 0.203 uIU/ML (0.55-4.78); TOTAL PROTEIN 6.6 G/DL (5.7-8.2)
[2024-06-25] MEDS ORDERED: TAMS1CAP17 PO (23:43)
[2024-06-25] MEDS ORDERED: HOME MED LIST COMPLETE! XX SCH (23:50)
[2024-06-26] MEDS ORDERED: LEVE750T5 PO (09:23)
[2024-06-26 10:15] LABS: AMPHETAMINES LEVEL URINE NEGATIVE (NEGATIVE); BARBITURATES URINE NEGATIVE (NEGATIVE); BENZODIAZEPINES URINE NEGATIVE (NEGATIVE); COCAINE METABOLITE URINE NEGATIVE (NEGATIVE); METHADONE URINE NEGATIVE (NEGATIVE); OPIATES URINE NEGATIVE (NEGATIVE); PHENCYCLIDINE URINE NEGATIVE (NEGATIVE)
[2024-06-26 10:16] LABS: CANNABINOIDS URINE NEGATIVE (NEGATIVE)
[2024-06-26] MEDS: NICOTINE 21MG/24HR 1 EA TRANSDERMAL TD SCH (10:21)
[2024-06-26] MEDS: oxyBUTYnin 5 MG TAB PO SCH (10:22)
[2024-06-26] MEDS: ESCITALOPRAM OXALATE 5MG TABLET (LEXAPRO) PO SCH (10:22)
[2024-06-26] MEDS: TAMSULOSIN 0.4 MG CAP PO SCH (10:22)
[2024-06-26] MEDS: predniSONE 10MG TAB PO SCH (10:22)
[2024-06-26] MEDS: lamoTRIgine 25MG TAB PO SCH (10:22)
[2024-06-26] MEDS: levETIRAcetam 250MG TABLET (KEPPRA) PO SCH (10:22)
[2024-06-26] MEDS: CLOPIDOGREL 75 MG TAB PO SCH (10:22)
[2024-06-26] MEDS: LEVOTHYROXINE 137MCG TABLET (0.137MG) PO SCH (10:44)
[2024-06-26] MEDS: OMEPRAZOLE 20MG CAP PO SCH (10:46)
[2024-06-26] MEDS: RIVAROXABAN 20MG TAB (XARELTO) PO SCH (10:46)
[2024-06-26] MEDS: ATORVASTATIN 20 MG TAB PO SCH (21:07)
[2024-06-26 21:08] VITALS: BP 138/88
[2024-06-26] MEDS: PRAZOSIN 1 MG CAP PO SCH (21:08)
[2024-06-26] MEDS: OLANZapine 10 MG TAB PO SCH (21:08)
[2024-06-27] MEDS ORDERED: NICOTINE 21MG/24HR 1 EA TRANSDERMAL TD SCH (09:00)
[2024-06-27 12:53] VITALS: BP 151/72; TEMP 97.5; O2SAT 93
[2025-06-26] MEDS ORDERED: NICOTINE 21MG/24HR 1 EA TRANSDERMAL TD SCH (09:00)
== END 2024-06-27 12:57 ==
LOC: M ED 19:47
DX: F32.A Depression, unspecified (principal); M85.861 Other specified disorders of bone density and structure, right lower leg; E78.5 Hyperlipidemia, unspecified; J44.9 Chronic obstructive pulmonary disease, unspecified; R56.9 Unspecified convulsions; F31.9 Bipolar disorder, unspecified; F43.10 Post-traumatic stress disorder, unspecified; K22.70 Barrett's esophagus without dysplasia; N32.81 Overactive bladder; Z86.19 Personal history of other infectious and parasitic diseases; K21.9 Gastro-esophageal reflux disease without esophagitis; Z86.73 Personal history of transient ischemic attack (TIA), and cerebral infarction without residual deficits; F17.200 Nicotine dependence, unspecified, uncomplicated; Z79.02 Long term (current) use of antithrombotics/antiplatelets; Z79.899 Other long term (current) drug therapy; Z91.041 Radiographic dye allergy status; Z88.0 Allergy status to penicillin; Z88.2 Allergy status to sulfonamides
CPT/HCPCS: 73564; 80048; 80076; 80143; 80307; 82077; 82550; 82553; 84443; 84484; 85027; 87635; 93005; 99284; J7512

== ENCOUNTER 2024-07-12 12:21 | Observation (INO) | payer MEDICARE, MEDICAID ==
[~2024-07-12] VITALS: Ht 172.7 cm; Wt 90.9 kg
[~2024-07-12 12:21] MED LIST changes: +LEVE750T5 PO; +TAMS1CAP17 PO
[2024-07-12] MEDS: methylPREDNISolone 125MG 2ML VIAL IV ONE (13:02)
[2024-07-12 13:16] LABS: BASO % 0.4 % (0.0-1.0); EOS # 0.1 10^3/uL (0.0-0.5); EOS % 1.1 % (0.0-3.0); HEMATOCRIT 34.2 % (36.0-47.0); HEMOGLOBIN 10.4 g/dl (12.0-15.5); LYMPH # 1.9 10^3/uL (1.5-5.0); LYMPH % 16.7 % (24.0-44.0); MEAN CORPUSCULAR HEMOGLOBIN 25.7 pg (27.0-33.0); MEAN CORPUSCULAR HGB CONC 30.4 g/dl (32.0-36.5); MEAN CORPUSCULAR VOLUME 84.7 fl (80.0-96.0); MONO % 9.2 % (2.0-8.0); NEUTROPHILS # 8.2 10^3/uL (1.5-8.5); NEUTROPHILS % 72.2 % (36.0-66.0); PLATELET COUNT, AUTOMATED 295 10^3/uL (150-450); RED BLOOD COUNT 4.04 10^6/uL (4.00-5.40); WHITE BLOOD COUNT 11.3 10^3/uL (4.0-10.0)
[2024-07-12] MEDS: MORPHINE 2 MG/ML 1ML VIAL IV ONE (13:17)
[2024-07-12 13:24] LABS: CK-MB VALUE MASS < 1.0 NG/ML (<3.6)
[2024-07-12 13:26] LABS: ALBUMIN 3.2 G/DL (3.2-5.2); ALKALINE PHOSPHATASE 146 U/L (46-116); ALT/SGPT 11 U/L (7.0-40); AST/SGOT < 8 U/L (<34); BILIRUBIN,DIRECT < 0.1 MG/DL (<0.4); BILIRUBIN,TOTAL 0.2 MG/DL (0.3-1.2); BLOOD UREA NITROGEN 9 MG/DL (9-23); CALCIUM LEVEL 10.2 MG/DL (8.3-10.6); CARBON DIOXIDE LEVEL 25 MMOL/L (20-31); CHLORIDE LEVEL 109 MMOL/L (98-107); CREATININE FOR GFR 0.68 MG/DL (0.55-1.30); GLOMERULAR FILTRATION RATE > 60.0 (>45); GLUCOSE, FASTING 110 MG/DL (74-106); POTASSIUM SERUM 3.5 MMOL/L (3.5-5.1); SODIUM LEVEL 138 MMOL/L (136-145); TOTAL PROTEIN 7.5 G/DL (5.7-8.2)
[2024-07-12 13:27] LABS: THYROXINE (T4) 7.3 UG/DL (4.5-10.9)
[2024-07-12 13:28] LABS: THYROID STIMULATING HORMONE 0.147 uIU/ML (0.55-4.78)
[2024-07-12 13:30] LABS: CPK CREATINE PHOSPHOKINASE 51 U/L (34-145); MB/CK RELATIVE INDEX 1.96 (< OR =4)
[2024-07-12] MEDS ORDERED: ACETAMINOPHEN TAB 650MG DOSE (2X325MG) PO PRN (16:00)
[2024-07-12] MEDS ORDERED: ALBUTEROL SULFATE 2.5MG/0.5ML INH NEB SOLN NEB PRN (16:00)
[2024-07-12] MEDS: IPRATROPIUM 0.5MG/ALBUTEROL 2.5MG INH SOL UD 3ML (DUONEB) NEB SCH (16:25)
[2024-07-12] MEDS ORDERED: DOXE75CA2 PO (16:30)
[2024-07-12] MEDS ORDERED: PRAZ2CAP PO (16:30)
[2024-07-12] MEDS ORDERED: LEXA1TAB2 PO (16:30)
[2024-07-12] MEDS ORDERED: LEVE500T5 PO (16:30)
[2024-07-12] MEDS ORDERED: QUET100T2 PO (16:30)
[2024-07-12] MEDS ORDERED: HOME MED LIST COMPLETE! XX SCH (16:35)
[2024-07-12] MEDS: NS 1,000 ML IV SCH (16:50)
[2024-07-12] MEDS: NICOTINE 21MG/24HR 1 EA TRANSDERMAL TD SCH (17:24)
[2024-07-12 17:43] LABS: CK-MB VALUE MASS < 1.0 NG/ML (<3.6)
[2024-07-12 17:44] LABS: CPK CREATINE PHOSPHOKINASE 41 U/L (34-145); MB/CK RELATIVE INDEX 2.43 (< OR =4)
[2024-07-12 17:56] LABS: INR 1.08; PROTHROMBIN TIME 13.7 SECONDS (12.5-14.5)
[2024-07-12] MEDS: RIVAROXABAN 20MG TAB (XARELTO) PO SCH (18:31)
[2024-07-12 20:00] VITALS: BP 144/81; TEMP 98.2; O2SAT 91
[2024-07-12] MEDS: PRAZOSIN 1 MG CAP PO SCH (21:14)
[2024-07-12] MEDS: DOXEPIN 25 MG CAP PO SCH (21:14)
[2024-07-12] MEDS: levETIRAcetam 250MG TABLET (KEPPRA) PO SCH (21:15)
[2024-07-12] MEDS: QUEtiapine FUMARATE 100 MG TAB PO SCH (21:15)
[2024-07-12] MEDS: ATORVASTATIN 20 MG TAB PO SCH (21:15)
[2024-07-12] MEDS: oxyBUTYnin 5 MG TAB PO SCH (21:15)
[2024-07-12] MEDS: OLANZapine 10 MG TAB PO SCH (21:15)
[2024-07-12] MEDS: lamoTRIgine 100MG TAB PO SCH (21:15)
[2024-07-12] MEDS: NORCO, ANEXSIA 5/325MG TABLET (HYDROcodone/ACETAMINOPHEN) PO ONE (21:15)
[2024-07-13] VITALS (8 sets, daily range): BP systolic 125–181; BP diastolic 60–92; TEMP 97.5–98.6; O2SAT 92–95
[2024-07-13] MEDS ORDERED: PERMETHRIN 5% CREAM 60 GM TOP SCH
[2024-07-13] MEDS: methylPREDNISolone 125MG 2ML VIAL IV SCH (00:56)
[2024-07-13] MEDS: LEVOTHYROXINE 137MCG TABLET (0.137MG) PO SCH (05:48)
[2024-07-13] MEDS: amLODIPine 5 MG TAB PO ONE (05:49)
[2024-07-13 05:51] LABS: HEMATOCRIT 32.9 % (36.0-47.0); HEMOGLOBIN 9.8 g/dl (12.0-15.5); MEAN CORPUSCULAR HEMOGLOBIN 25.5 pg (27.0-33.0); MEAN CORPUSCULAR HGB CONC 29.8 g/dl (32.0-36.5); MEAN CORPUSCULAR VOLUME 85.5 fl (80.0-96.0); PLATELET COUNT, AUTOMATED 288 10^3/uL (150-450); RED BLOOD COUNT 3.85 10^6/uL (4.00-5.40); WHITE BLOOD COUNT 8.3 10^3/uL (4.0-10.0)
[2024-07-13 06:17] LABS: ALKALINE PHOSPHATASE 127 U/L (46-116); ALT/SGPT 10 U/L (7.0-40); AST/SGOT < 8 U/L (<34); BILIRUBIN,TOTAL 0.2 MG/DL (0.3-1.2); BLOOD UREA NITROGEN 10 MG/DL (9-23); CALCIUM LEVEL 9.9 MG/DL (8.3-10.6); CARBON DIOXIDE LEVEL 23 MMOL/L (20-31); CHLORIDE LEVEL 109 MMOL/L (98-107); CREATININE FOR GFR 0.57 MG/DL (0.55-1.30); GLOMERULAR FILTRATION RATE > 60.0 (>45); GLUCOSE, FASTING 165 MG/DL (74-106); POTASSIUM SERUM 4.4 MMOL/L (3.5-5.1); SODIUM LEVEL 137 MMOL/L (136-145); TOTAL PROTEIN 7.1 G/DL (5.7-8.2)
[2024-07-13] MEDS: TAMSULOSIN 0.4 MG CAP PO SCH (08:45)
[2024-07-13] MEDS: OMEPRAZOLE 20MG CAP PO SCH (08:46)
[2024-07-13] MEDS: ESCITALOPRAM OXALATE 10 MG TAB (LEXAPRO) PO SCH (08:46)
[2024-07-13] MEDS ORDERED: FUROSEMIDE 20 MG TAB PO SCH (09:00)
[2024-07-13] MEDS: CLOPIDOGREL 75 MG TAB PO SCH (09:01)
[2024-07-13] MEDS ORDERED: ATIV1TAB10 PO (11:19)
[2024-07-13] MEDS ORDERED: HOME MED LIST COMPLETE! XX SCH (11:20)
[2024-07-13] MEDS: LORazepam 0.5 MG TAB PO PRN (15:45)
[2024-07-13] MEDS: PERMETHRIN 5% CREAM 60 GM TOP ONE (20:13)
[2024-07-13] MEDS: RAMELTEON 8 MG TAB (ROZEREM) PO ONE (20:54)
[2024-07-14 04:00] VITALS: BP 155/84; TEMP 98.2; O2SAT 91
[2024-07-14 06:05] LABS: HEMATOCRIT 31.3 % (36.0-47.0); HEMOGLOBIN 9.3 g/dl (12.0-15.5); MEAN CORPUSCULAR HEMOGLOBIN 25.8 pg (27.0-33.0); MEAN CORPUSCULAR HGB CONC 29.7 g/dl (32.0-36.5); MEAN CORPUSCULAR VOLUME 86.7 fl (80.0-96.0); PLATELET COUNT, AUTOMATED 273 10^3/uL (150-450); RED BLOOD COUNT 3.61 10^6/uL (4.00-5.40); WHITE BLOOD COUNT 10.9 10^3/uL (4.0-10.0)
[2024-07-14 06:44] LABS: ALBUMIN 2.9 G/DL (3.2-5.2); ALKALINE PHOSPHATASE 121 U/L (46-116); ALT/SGPT 9 U/L (7.0-40); AST/SGOT < 8 U/L (<34); BILIRUBIN,TOTAL < 0.2 MG/DL (0.3-1.2); BLOOD UREA NITROGEN 19 MG/DL (9-23); CALCIUM LEVEL 9.9 MG/DL (8.3-10.6); CARBON DIOXIDE LEVEL 25 MMOL/L (20-31); CHLORIDE LEVEL 109 MMOL/L (98-107); CREATININE FOR GFR 0.61 MG/DL (0.55-1.30); GLOMERULAR FILTRATION RATE > 60.0 (>45); GLUCOSE, FASTING 159 MG/DL (74-106); POTASSIUM SERUM 4.6 MMOL/L (3.5-5.1); SODIUM LEVEL 138 MMOL/L (136-145); TOTAL PROTEIN 6.9 G/DL (5.7-8.2)
[2024-07-14] MEDS ORDERED: PRED20TA PO (10:04)
[2024-07-14] MEDS ORDERED: ALBU8.5H INH (10:22)
[2024-07-14] MEDS ORDERED: IPRA0.00 INH (10:22)
[2024-07-14] MEDS ORDERED: ALBU2.5V10 INH (10:22)
[2024-07-14 10:50] VITALS: O2SAT 97
[2024-07-14 12:00] VITALS: BP 146/83; TEMP 97.9; O2SAT 92
[2024-07-14] MEDS: FLUBLOK(EGGFREE) TRIVAL(24-25) VACCINE PF 0.5ML SYRINGE 18YRS & OLDER IM.IMMUN ONE (12:03)
[2024-07-17 04:32] LABS: LEVETIRACETAM (KEPPRA) 8.8 mcg/mL (6.0-46.0)
== END 2024-07-14 12:55 | disposition home or self-care (01) ==
LOC: EDBD 12:21 → M ED 12:21 → M ED INP 15:58 → M MSPAV 20:29
PROVIDERS: ADMIT Internal Medicine; ATTEND Internal Medicine
DX: J96.01 Acute respiratory failure with hypoxia (principal); J44.1 Chronic obstructive pulmonary disease with (acute) exacerbation; B34.8 Other viral infections of unspecified site; B34.1 Enterovirus infection, unspecified; R07.81 Pleurodynia; Z20.7 Contact with and (suspected) exposure to pediculosis, acariasis and other infestations; E87.29 Other acidosis; F17.218 Nicotine dependence, cigarettes, with other nicotine-induced disorders; E03.9 Hypothyroidism, unspecified; K21.9 Gastro-esophageal reflux disease without esophagitis; E27.1 Primary adrenocortical insufficiency; Z79.52 Long term (current) use of systemic steroids; Z86.73 Personal history of transient ischemic attack (TIA), and cerebral infarction without residual deficits; I10 Essential (primary) hypertension; F31.9 Bipolar disorder, unspecified; F41.9 Anxiety disorder, unspecified; R32 Unspecified urinary incontinence; Z79.899 Other long term (current) drug therapy; Z79.01 Long term (current) use of anticoagulants; Z91.041 Radiographic dye allergy status; Z88.0 Allergy status to penicillin; Z88.2 Allergy status to sulfonamides
CPT/HCPCS: 36415; 71045; 71250; 80048; 80053; 80076; 80175; 80177; 82550; 82553; 83605; 83880; 84436; 84443; 84484; 85025; 85027; 85610; 87040; 87486; 87581; 87633; 87798; 90673; 93005; 93041; 94640; 94760; 96361; 96374; 96375; 96376; 99285; G0008; G0378; J2919

== ENCOUNTER 2024-07-25 14:48 | Emergency (ER) | payer MEDICARE, MEDICAID ==
[~2024-07-25] VITALS: Ht 172.7 cm; Wt 97.8 kg
[~2024-07-25 14:48] MED LIST changes: +ALBU8.5H INH; +ATIV1TAB10 PO; +DOXE75CA2 PO; +IPRA0.00 INH; +LEVE500T5 PO; +LEXA1TAB2 PO; +PRAZ2CAP PO; +PRED20TA PO; +QUET100T2 PO
[2024-07-25 17:10] LABS: BASO # 0.1 10^3/uL (0.0-0.2); BASO % 0.7 % (0.0-1.0); EOS # 0.3 10^3/uL (0.0-0.5); EOS % 1.9 % (0.0-3.0); HEMATOCRIT 34.9 % (36.0-47.0); HEMOGLOBIN 10.4 g/dl (12.0-15.5); LYMPH # 2.5 10^3/uL (1.5-5.0); MEAN CORPUSCULAR HEMOGLOBIN 25.4 pg (27.0-33.0); MEAN CORPUSCULAR HGB CONC 29.8 g/dl (32.0-36.5); MEAN CORPUSCULAR VOLUME 85.3 fl (80.0-96.0); MONO # 0.8 10^3/uL (0.0-0.8); MONO % 6.3 % (2.0-8.0); NEUTROPHILS # 9.6 10^3/uL (1.5-8.5); NEUTROPHILS % 71.4 % (36.0-66.0); PLATELET COUNT, AUTOMATED 280 10^3/uL (150-450); RED BLOOD COUNT 4.09 10^6/uL (4.00-5.40); WHITE BLOOD COUNT 13.4 10^3/uL (4.0-10.0)
[2024-07-25 17:18] LABS: ERYTHROCYTE SEDIMENTATION RATE 71 mm/hr (0-30)
[2024-07-25 17:33] LABS: LIPASE 21 U/L (12-53)
[2024-07-25 17:35] LABS: ALBUMIN 3.6 G/DL (3.2-5.2); ALKALINE PHOSPHATASE 133 U/L (46-116); ALT/SGPT 15 U/L (7.0-40); AST/SGOT 11 U/L (<34); BILIRUBIN,DIRECT < 0.1 MG/DL (<0.4); BILIRUBIN,TOTAL 0.2 MG/DL (0.3-1.2); BLOOD UREA NITROGEN 14 MG/DL (9-23); CARBON DIOXIDE LEVEL 26 MMOL/L (20-31); CHLORIDE LEVEL 105 MMOL/L (98-107); CREATININE FOR GFR 0.93 MG/DL (0.55-1.30); GLOMERULAR FILTRATION RATE > 60.0 (>45); GLUCOSE, FASTING 87 MG/DL (74-106); POTASSIUM SERUM 4.1 MMOL/L (3.5-5.1); SODIUM LEVEL 136 MMOL/L (136-145); TOTAL PROTEIN 7.6 G/DL (5.7-8.2)
[2024-07-25] MEDS ORDERED: PRED10TA2 PO (17:46)
[2024-07-25] MEDS: KETOROLAC 60MG 2ML VIAL IM ONE (17:56)
[2024-07-25] MEDS ORDERED: OLAN20TA53 PO (18:00)
[2024-07-25] MEDS ORDERED: PRAZ2CAP PO (18:00)
[2024-07-25] MEDS ORDERED: LEXA1TAB2 PO (18:00)
[2024-07-25] MEDS ORDERED: ATIV1TAB10 PO (18:00)
[2024-07-25] MEDS ORDERED: LEVE500T5 PO (18:00)
[2024-07-25] MEDS ORDERED: TRAM1CAP15 PO (18:00)
[2024-07-25 18:11] VITALS: BP 154/74; TEMP 98.2; O2SAT 96
[2024-07-25 18:15] LABS: RSV AMPLIFICATION NEGATIVE (NEGATIVE)
== END 2024-07-25 18:15 | disposition home or self-care (01) ==
LOC: M ED 14:48
DX: F41.9 Anxiety disorder, unspecified (principal); F32.A Depression, unspecified; M06.9 Rheumatoid arthritis, unspecified; E27.1 Primary adrenocortical insufficiency; Z88.0 Allergy status to penicillin; Z88.2 Allergy status to sulfonamides; Z91.041 Radiographic dye allergy status; Z79.51 Long term (current) use of inhaled steroids; Z79.52 Long term (current) use of systemic steroids; Z79.899 Other long term (current) drug therapy
CPT/HCPCS: 80048; 80076; 83690; 83880; 85025; 85652; 87631; 96372; 99283; J1885

== ENCOUNTER 2024-08-05 13:05 | Emergency (ER) | payer MEDICARE, MEDICAID ==
[~2024-08-05] VITALS: Ht 172.7 cm; Wt 97.7 kg
[~2024-08-05 13:05] MED LIST changes: +TRAM1CAP15 PO
[2024-08-05 14:50] LABS: BASO % 0.3 % (0.0-1.0); EOS # 0.1 10^3/uL (0.0-0.5); EOS % 0.6 % (0.0-3.0); HEMATOCRIT 34.1 % (36.0-47.0); HEMOGLOBIN 10.3 g/dl (12.0-15.5); LYMPH # 0.8 10^3/uL (1.5-5.0); LYMPH % 7.2 % (24.0-44.0); MEAN CORPUSCULAR HGB CONC 30.2 g/dl (32.0-36.5); MEAN CORPUSCULAR VOLUME 82.8 fl (80.0-96.0); MONO # 0.4 10^3/uL (0.0-0.8); MONO % 3.8 % (2.0-8.0); NEUTROPHILS # 9.3 10^3/uL (1.5-8.5); NEUTROPHILS % 87.5 % (36.0-66.0); PLATELET COUNT, AUTOMATED 296 10^3/uL (150-450); RED BLOOD COUNT 4.12 10^6/uL (4.00-5.40); WHITE BLOOD COUNT 10.6 10^3/uL (4.0-10.0)
[2024-08-05 15:21] LABS: LIPASE 28 U/L (12-53)
[2024-08-05 15:27] LABS: ALBUMIN 3.2 G/DL (3.2-5.2); ALKALINE PHOSPHATASE 138 U/L (46-116); ALT/SGPT 11 U/L (7.0-40); AST/SGOT < 8 U/L (<34); BILIRUBIN,DIRECT < 0.1 MG/DL (<0.4); BILIRUBIN,TOTAL 0.2 MG/DL (0.3-1.2); BLOOD UREA NITROGEN 11 MG/DL (9-23); CALCIUM LEVEL 9.8 MG/DL (8.3-10.6); CARBON DIOXIDE LEVEL 26 MMOL/L (20-31); CHLORIDE LEVEL 107 MMOL/L (98-107); CREATININE FOR GFR 0.72 MG/DL (0.55-1.30); GLOMERULAR FILTRATION RATE > 60.0 (>45); GLUCOSE, FASTING 112 MG/DL (74-106); POTASSIUM SERUM 4.6 MMOL/L (3.5-5.1); SODIUM LEVEL 136 MMOL/L (136-145); TOTAL PROTEIN 7.1 G/DL (5.7-8.2)
[2024-08-05] MEDS ORDERED: ONDANSETRON 4MG 2ML VIAL IV ONE (16:20)
[2024-08-05] MEDS: ONDANSETRON 4MG ORAL DISINTEGRATING TAB PO ONE (16:25)
[2024-08-05 17:37] VITALS: TEMP 98
[2024-08-05 17:45] VITALS: BP 131/62; O2SAT 94
== END 2024-08-05 17:47 | disposition home or self-care (01) ==
LOC: M ED 13:05
DX: R19.7 Diarrhea, unspecified (principal); I10 Essential (primary) hypertension; Z86.73 Personal history of transient ischemic attack (TIA), and cerebral infarction without residual deficits; J44.9 Chronic obstructive pulmonary disease, unspecified; Z86.19 Personal history of other infectious and parasitic diseases; E03.9 Hypothyroidism, unspecified; Z87.891 Personal history of nicotine dependence; Z79.02 Long term (current) use of antithrombotics/antiplatelets; Z79.899 Other long term (current) drug therapy; Z91.041 Radiographic dye allergy status; Z88.0 Allergy status to penicillin; Z88.2 Allergy status to sulfonamides

== ENCOUNTER 2024-09-14 14:17 | Inpatient (IN) | payer MEDICARE, MEDICAID ==
[~2024-09-14] VITALS: Ht 167.6 cm; Wt 97.1 kg
[~2024-09-14 14:17] MED LIST changes: -LEVO750T14 PO; +LEVO75TAB PO
[2024-09-14 15:14] LABS: BASO % 0.1 % (0.0-1.0); EOS % 0.1 % (0.0-3.0); HEMATOCRIT 32.6 % (36.0-47.0); LYMPH # 0.5 10^3/uL (1.5-5.0); MEAN CORPUSCULAR HEMOGLOBIN 24.2 pg (27.0-33.0); MEAN CORPUSCULAR HGB CONC 30.7 g/dl (32.0-36.5); MEAN CORPUSCULAR VOLUME 78.7 fl (80.0-96.0); MONO # 0.7 10^3/uL (0.0-0.8); NEUTROPHILS # 15.7 10^3/uL (1.5-8.5); NEUTROPHILS % 92.1 % (36.0-66.0); PLATELET COUNT, AUTOMATED 189 10^3/uL (150-450); RED BLOOD COUNT 4.14 10^6/uL (4.00-5.40); WHITE BLOOD COUNT 17.1 10^3/uL (4.0-10.0)
[2024-09-14 15:36] LABS: LIPASE 18 U/L (12-53)
[2024-09-14 15:39] LABS: ALBUMIN 3.1 G/DL (3.2-5.2); ALKALINE PHOSPHATASE 92 U/L (35-104); ALT/SGPT < 9 U/L (7.0-40); AST/SGOT < 8 U/L (<34); BILIRUBIN,DIRECT 0.2 MG/DL (<0.4); BILIRUBIN,TOTAL 0.5 MG/DL (0.3-1.2); BLOOD UREA NITROGEN 18 MG/DL (9-23); CALCIUM LEVEL 10.2 MG/DL (8.3-10.6); CARBON DIOXIDE LEVEL 23 MMOL/L (20-31); CHLORIDE LEVEL 108 MMOL/L (98-107); CK-MB VALUE MASS < 1.0 NG/ML (<3.6); CPK CREATINE PHOSPHOKINASE 43 U/L (34-145); CREATININE FOR GFR 0.73 MG/DL (0.55-1.30); GLOMERULAR FILTRATION RATE > 60.0 (>45); GLUCOSE, FASTING 150 MG/DL (74-106); MB/CK RELATIVE INDEX 2.32 (< OR =4); POTASSIUM SERUM 3.8 MMOL/L (3.5-5.1); SODIUM LEVEL 138 MMOL/L (136-145)
[2024-09-14 15:41] LABS: FREE T4 1.43 NG/DL (0.89-1.76); THYROID STIMULATING HORMONE 0.075 uIU/ML (0.55-4.78)
[2024-09-14] MEDS: LevoFLOXacin IV 750 MG in IV 1 EA IV ONE (16:25)
[2024-09-14] MEDS: ACETAMINOPHEN 325 MG TAB PO ONE (16:26)
[2024-09-14 16:39] LABS: CK-MB VALUE MASS < 1.0 NG/ML (<3.6)
[2024-09-14 16:41] LABS: CPK CREATINE PHOSPHOKINASE 44 U/L (34-145); MB/CK RELATIVE INDEX 2.27 (< OR =4)
[2024-09-14] MEDS: RIVAROXABAN 20MG TAB (XARELTO) PO SCH (18:00)
[2024-09-14] MEDS: methylPREDNISolone 125MG 2ML VIAL IV ONE (18:59)
[2024-09-14] MEDS: KETOROLAC 30 MG/ML 1ML VIAL IV ONE (19:00)
[2024-09-14] MEDS ORDERED: LEXA1TAB PO (19:11)
[2024-09-14] MEDS ORDERED: HOME MED LIST COMPLETE! XX SCH (19:15)
[2024-09-14] MEDS ORDERED: MAALOX 30 ML SUSP *UDC PO PRN (20:15)
[2024-09-14] MEDS ORDERED: MOM 30ML SUSPENSION UDC PO PRN (20:15)
[2024-09-14] MEDS ORDERED: ALBUTEROL SULFATE 2.5MG/0.5ML INH NEB SOLN INH PRN (20:15)
[2024-09-14] MEDS: lamoTRIgine 100MG TAB PO SCH (21:00)
[2024-09-14] MEDS: DOCUSATE SODIUM 100MG CAPSULE PO SCH (21:00)
[2024-09-14] MEDS: DOXEPIN 25 MG CAP PO SCH (21:00)
[2024-09-14] MEDS: ATORVASTATIN 20 MG TAB PO SCH (21:00)
[2024-09-14] MEDS: CEFEPIME HCL 2 GM in DEXTROSE 5% (D5W) ADV/MINI-BAG 50 ML IV SCH (21:00)
[2024-09-14] MEDS: oxyBUTYnin 5 MG TAB PO SCH (21:00)
[2024-09-14] MEDS: OLANZapine 10 MG TAB PO SCH (21:00)
[2024-09-14] MEDS: PRAZOSIN 1 MG CAP PO SCH (21:00)
[2024-09-14 21:51] LABS: INR 1.48; PARTIAL THROMBOPLASTIN TIME 39.4 SECONDS (24.8-34.2); PROTHROMBIN TIME 18.2 SECONDS (12.5-14.5)
[2024-09-14 21:54] LABS: ETHYL ALCOHOL (ETHANOL) 0.003 % (0.000-0.010)
[2024-09-14 21:56] LABS: SALICYLATE LEVEL < 3.0 MG/DL (<30)
[2024-09-14 21:58] LABS: PROCALCITONIN 1.53 ng/ml
[2024-09-14 22:00] LABS: VENOUS BASE EXCESS -1.8 (-2.0-2.0); VENOUS HCO3 22.4 MMOL/L (23.0-27.0); VENOUS O2 SATURATION 99.8 % (60.0-80.0); VENOUS PARTIAL PRESSURE CO2 35.9 mmHg (38.0-50.0); VENOUS PARTIAL PRESSURE O2 154.5 mmHg (30.0-50.0); VENOUS PH 7.413 UNITS (7.330-7.430); VENOUS TOTAL CO2 23.5 MMOL/L (24.0-28.0)
[2024-09-14 22:06] LABS: HEPATITIS B SURFACE ANTIGEN NEGATIVE (NEGATIVE)
[2024-09-14 22:21] LABS: PROLACTIN 17.13 NG/ML
[2024-09-14 22:28] LABS: HEPATITIS B CORE ANTIBODY IGM NEGATIVE (NEGATIVE)
[2024-09-14 22:41] LABS: CK-MB VALUE MASS < 1.0 NG/ML (<3.6)
[2024-09-14 22:42] LABS: CPK CREATINE PHOSPHOKINASE 44 U/L (34-145); MB/CK RELATIVE INDEX 2.27 (< OR =4)
[2024-09-14 22:43] LABS: HEPATITIS C VIRUS ABY INDEX > 11.00 INDEX (<0.8)
[2024-09-14 22:46] LABS: AMPHETAMINES LEVEL URINE NEGATIVE (NEGATIVE); BARBITURATES URINE NEGATIVE (NEGATIVE); BENZODIAZEPINES URINE NEGATIVE (NEGATIVE); COCAINE METABOLITE URINE NEGATIVE (NEGATIVE)
[2024-09-14 22:47] LABS: CANNABINOIDS URINE NEGATIVE (NEGATIVE); METHADONE URINE NEGATIVE (NEGATIVE); OPIATES URINE NEGATIVE (NEGATIVE); PHENCYCLIDINE URINE NEGATIVE (NEGATIVE)
[2024-09-14] MEDS ORDERED: PILL CUTTER 1 EACH XX PRN (23:10)
[2024-09-15] VITALS (21 sets, daily range): BP systolic 104–145; BP diastolic 51–72; TEMP 97.1–97.7; O2SAT 83–96
[2024-09-15 01:48] LABS: CK-MB VALUE MASS < 1.0 NG/ML (<3.6)
[2024-09-15 02:00] LABS: CPK CREATINE PHOSPHOKINASE 54 U/L (34-145); MB/CK RELATIVE INDEX 1.85 (< OR =4)
[2024-09-15] MEDS: methylPREDNISolone 125MG 2ML VIAL IV SCH (02:10)
[2024-09-15] MEDS: LEVOTHYROXINE 137MCG TABLET (0.137MG) PO SCH (05:35)
[2024-09-15 06:06] LABS: HEMATOCRIT 32.5 % (36.0-47.0); HEMOGLOBIN 9.9 g/dl (12.0-15.5); MEAN CORPUSCULAR HEMOGLOBIN 24.3 pg (27.0-33.0); MEAN CORPUSCULAR HGB CONC 30.5 g/dl (32.0-36.5); MEAN CORPUSCULAR VOLUME 79.7 fl (80.0-96.0); PLATELET COUNT, AUTOMATED 215 10^3/uL (150-450); RED BLOOD COUNT 4.08 10^6/uL (4.00-5.40); WHITE BLOOD COUNT 19.9 10^3/uL (4.0-10.0)
[2024-09-15 06:29] LABS: ALBUMIN 2.8 G/DL (3.2-5.2); ALKALINE PHOSPHATASE 83 U/L (35-104); ALT/SGPT < 9 U/L (7.0-40); AST/SGOT < 8 U/L (<34); BILIRUBIN,TOTAL 0.4 MG/DL (0.3-1.2); BLOOD UREA NITROGEN 18 MG/DL (9-23); CALCIUM LEVEL 10.5 MG/DL (8.3-10.6); CARBON DIOXIDE LEVEL 24 MMOL/L (20-31); CHLORIDE LEVEL 109 MMOL/L (98-107); CREATININE FOR GFR 0.65 MG/DL (0.55-1.30); GLOMERULAR FILTRATION RATE > 60.0 (>45); GLUCOSE, FASTING 166 MG/DL (74-106); MAGNESIUM LEVEL 1.9 MG/DL (1.8-2.4); POTASSIUM SERUM 4.3 MMOL/L (3.5-5.1); SODIUM LEVEL 139 MMOL/L (136-145); TOTAL PROTEIN 6.4 G/DL (5.7-8.2)
[2024-09-15] MEDS: OMEPRAZOLE 20MG CAP PO SCH (09:00)
[2024-09-15] MEDS: ESCITALOPRAM OXALATE 10 MG TAB (LEXAPRO) PO SCH (09:00)
[2024-09-15] MEDS: lamoTRIgine 100MG TAB PO SCH (09:00)
[2024-09-15] MEDS: CLOPIDOGREL 75 MG TAB PO SCH (09:00)
[2024-09-15] MEDS: ACETAMINOPHEN 325 MG TAB PO PRN (11:30)
[2024-09-15] MEDS: LIDOCAINE 5% (LIDODERM) PATCH TD SCH (15:44)
[2024-09-15] MEDS ORDERED: LevoFLOXacin IV 750 MG in IV 1 EA IV SCH (16:00)
[2024-09-15] MEDS: methylPREDNISolone 40MG 1ML VIAL IV SCH (20:07)
[2024-09-15] MEDS: KETOROLAC TROMETHAMINE 10 MG TAB PO PRN (20:08)
[2024-09-16] VITALS (33 sets, daily range): BP systolic 133–164; BP diastolic 79–91; TEMP 97.2–98; O2SAT 85–94
[2024-09-16 08:21] LABS: BASO % 0.1 % (0.0-1.0); HEMATOCRIT 33.6 % (36.0-47.0); HEMOGLOBIN 10.2 g/dl (12.0-15.5); LYMPH # 1.3 10^3/uL (1.5-5.0); LYMPH % 7.7 % (24.0-44.0); MEAN CORPUSCULAR HEMOGLOBIN 24.2 pg (27.0-33.0); MEAN CORPUSCULAR HGB CONC 30.4 g/dl (32.0-36.5); MEAN CORPUSCULAR VOLUME 79.8 fl (80.0-96.0); MONO # 0.9 10^3/uL (0.0-0.8); MONO % 5.4 % (2.0-8.0); NEUTROPHILS # 14.6 10^3/uL (1.5-8.5); NEUTROPHILS % 86.1 % (36.0-66.0); PLATELET COUNT, AUTOMATED 263 10^3/uL (150-450); RED BLOOD COUNT 4.21 10^6/uL (4.00-5.40); WHITE BLOOD COUNT 16.9 10^3/uL (4.0-10.0)
[2024-09-16 08:41] LABS: BLOOD UREA NITROGEN 29 MG/DL (9-23); CALCIUM LEVEL 10.4 MG/DL (8.3-10.6); CARBON DIOXIDE LEVEL 22 MMOL/L (20-31); CHLORIDE LEVEL 109 MMOL/L (98-107); CREATININE FOR GFR 0.73 MG/DL (0.55-1.30); GLOMERULAR FILTRATION RATE > 60.0 (>45); GLUCOSE, FASTING 136 MG/DL (74-106); MAGNESIUM LEVEL 2.1 MG/DL (1.8-2.4); POTASSIUM SERUM 4.4 MMOL/L (3.5-5.1); SODIUM LEVEL 139 MMOL/L (136-145)
[2024-09-16] MEDS: NICOTINE 21MG/24HR 1 EA TRANSDERMAL TD PRN (11:10)
[2024-09-16] MEDS: PANTOPRAZOLE 40MG VIAL IV ONE (20:49)
[2024-09-17] VITALS (29 sets, daily range): BP systolic 128–178; BP diastolic 75–92; TEMP 96.7–98.1; O2SAT 86–95
[2024-09-17] MEDS: IPRATROPIUM 0.5MG/ALBUTEROL 2.5MG INH SOL UD 3ML (DUONEB) INH PRN (00:32)
[2024-09-17 06:38] LABS: BASO % 0.2 % (0.0-1.0); EOS % 0.2 % (0.0-3.0); HEMATOCRIT 35.1 % (36.0-47.0); HEMOGLOBIN 10.4 g/dl (12.0-15.5); LYMPH # 3.1 10^3/uL (1.5-5.0); LYMPH % 18.7 % (24.0-44.0); MEAN CORPUSCULAR HEMOGLOBIN 23.7 pg (27.0-33.0); MEAN CORPUSCULAR HGB CONC 29.6 g/dl (32.0-36.5); MEAN CORPUSCULAR VOLUME 80.1 fl (80.0-96.0); MONO # 0.8 10^3/uL (0.0-0.8); MONO % 4.9 % (2.0-8.0); NEUTROPHILS # 12.4 10^3/uL (1.5-8.5); PLATELET COUNT, AUTOMATED 270 10^3/uL (150-450); RED BLOOD COUNT 4.38 10^6/uL (4.00-5.40); WHITE BLOOD COUNT 16.6 10^3/uL (4.0-10.0)
[2024-09-17 07:01] LABS: BLOOD UREA NITROGEN 22 MG/DL (9-23); CALCIUM LEVEL 10.2 MG/DL (8.3-10.6); CARBON DIOXIDE LEVEL 24 MMOL/L (20-31); CHLORIDE LEVEL 109 MMOL/L (98-107); CREATININE FOR GFR 0.65 MG/DL (0.55-1.30); GLOMERULAR FILTRATION RATE > 60.0 (>45); GLUCOSE, FASTING 92 MG/DL (74-106); MAGNESIUM LEVEL 1.9 MG/DL (1.8-2.4); POTASSIUM SERUM 3.8 MMOL/L (3.5-5.1); SODIUM LEVEL 141 MMOL/L (136-145)
[2024-09-17] MEDS: IPRATROPIUM 0.5MG/ALBUTEROL 2.5MG INH SOL UD 3ML (DUONEB) NEB SCH (08:03)
[2024-09-17] MEDS: BUDESONIDE 0.5 MG/2 ML INHALATION SUSPENSION NEB SCH (08:03)
[2024-09-17] MEDS: DICLOFENAC EPOLAMINE 1.3% PATCH TOP SCH (08:12)
[2024-09-17] MEDS: predniSONE 20 MG TAB PO SCH (08:13)
[2024-09-17] MEDS ORDERED: diphenhydrAMINE 50MG/ML VIAL IM ONE (14:00)
[2024-09-17] MEDS: diphenhydrAMINE 50MG/ML VIAL IV PRN (14:41)
[2024-09-17] MEDS: methylPREDNISolone 40MG 1ML VIAL IV SCH (20:30)
[2024-09-17] MEDS: DOXYCYCLINE HYCLATE 100MG TABLET PO SCH (20:32)
[2024-09-17 22:58] LABS: ABG BASE EXCESS -0.2 (-2.0-2.0); ABG HCO3 22.8 MMOL/L (22.0-26.0); ABG O2 SATURATION 96.8 % (95.0-99.0); ABG PARTIAL PRESSURE CO2 31.8 mmHg (35.0-45.0); ABG PARTIAL PRESSURE O2 85.5 mmHg (75.0-100.0); ABG STANDARD HCO3 24.3 MMOL/L. (22.0-26.0); ABG TOTAL CO2 23.8 MMOL/L (23.0-31.0); ABG pH (ARTERIAL) 7.474 UNITS (7.350-7.450)
[2024-09-18] VITALS (29 sets, daily range): BP systolic 122–152; BP diastolic 60–78; TEMP 97.2–98.3; O2SAT 88–97
[2024-09-18] MEDS: diphenhydrAMINE 50MG/ML VIAL IV ONE (02:37)
[2024-09-18 08:33] LABS: BLOOD UREA NITROGEN 21 MG/DL (9-23); CALCIUM LEVEL 10.5 MG/DL (8.3-10.6); CARBON DIOXIDE LEVEL 24 MMOL/L (20-31); CHLORIDE LEVEL 105 MMOL/L (98-107); CREATININE FOR GFR 0.65 MG/DL (0.55-1.30); GLOMERULAR FILTRATION RATE > 60.0 (>45); GLUCOSE, FASTING 136 MG/DL (74-106); POTASSIUM SERUM 4.3 MMOL/L (3.5-5.1); SODIUM LEVEL 138 MMOL/L (136-145)
[2024-09-18] MEDS: diphenhydrAMINE 50MG/ML VIAL IV PRN (20:29)
[2024-09-19] VITALS (33 sets, daily range): BP systolic 125–162; BP diastolic 58–80; TEMP 97.6–98.4; O2SAT 88–98
[2024-09-19 06:02] LABS: BLOOD UREA NITROGEN 30 MG/DL (9-23); CALCIUM LEVEL 10.2 MG/DL (8.3-10.6); CARBON DIOXIDE LEVEL 25 MMOL/L (20-31); CHLORIDE LEVEL 110 MMOL/L (98-107); CREATININE FOR GFR 0.76 MG/DL (0.55-1.30); GLOMERULAR FILTRATION RATE > 60.0 (>45); GLUCOSE, FASTING 194 MG/DL (74-106); MAGNESIUM LEVEL 2.1 MG/DL (1.8-2.4); POTASSIUM SERUM 4.5 MMOL/L (3.5-5.1); SODIUM LEVEL 139 MMOL/L (136-145)
[2024-09-19 10:12] LABS: BASO % 0.1 % (0.0-1.0); HEMATOCRIT 31.7 % (36.0-47.0); HEMOGLOBIN 9.4 g/dl (12.0-15.5); LYMPH # 1.3 10^3/uL (1.5-5.0); LYMPH % 11.6 % (24.0-44.0); MEAN CORPUSCULAR HEMOGLOBIN 24.1 pg (27.0-33.0); MEAN CORPUSCULAR HGB CONC 29.7 g/dl (32.0-36.5); MEAN CORPUSCULAR VOLUME 81.3 fl (80.0-96.0); MONO # 0.7 10^3/uL (0.0-0.8); MONO % 5.8 % (2.0-8.0); NEUTROPHILS # 9.4 10^3/uL (1.5-8.5); NEUTROPHILS % 80.9 % (36.0-66.0); PLATELET COUNT, AUTOMATED 285 10^3/uL (150-450); WHITE BLOOD COUNT 11.6 10^3/uL (4.0-10.0)
[2024-09-19 10:49] LABS: FERRITIN 33.6 NG/ML (7.3-270.7); IRON (FE) 18 UG/DL (50-170); PERCENT SATURATION 4.9 % (13.2-45.0); TOTAL IRON BINDING CAPACITY 370 UG/DL (250-425)
[2024-09-19] MEDS: diphenhydrAMINE 50MG/ML VIAL IV PRN (13:18)
[2024-09-19 13:37] LABS: HCV RNA QUANTITATION <15 NOT DETECTED IU/mL (NOT DETECTED); HCV RNA log10 <1.18 NOT DETECTED Log IU/mL (NOT DETECTED)
[2024-09-19 20:32] LABS: URINE STREP PNEUMONIAE ANTIGEN NOT DETECTED (NOT DETECT)
[2024-09-20] VITALS (28 sets, daily range): BP systolic 134–146; BP diastolic 64–81; TEMP 97.2–98.1; O2SAT 86–94
[2024-09-20 05:58] LABS: BLOOD UREA NITROGEN 30 MG/DL (9-23); CALCIUM LEVEL 9.8 MG/DL (8.3-10.6); CARBON DIOXIDE LEVEL 27 MMOL/L (20-31); CHLORIDE LEVEL 108 MMOL/L (98-107); CREATININE FOR GFR 0.71 MG/DL (0.55-1.30); GLOMERULAR FILTRATION RATE > 60.0 (>45); GLUCOSE, FASTING 103 MG/DL (74-106); MAGNESIUM LEVEL 1.9 MG/DL (1.8-2.4); POTASSIUM SERUM 3.9 MMOL/L (3.5-5.1); SODIUM LEVEL 139 MMOL/L (136-145)
[2024-09-20] MEDS: predniSONE 20 MG TAB PO SCH (08:32)
[2024-09-20] MEDS ORDERED: IPRA0.00 INH (12:58)
[2024-09-20] MEDS ORDERED: PRED20TA PO (12:58)
[2024-09-20] MEDS ORDERED: NICO21PAT TD (12:58)
[2024-09-20] MEDS ORDERED: ALBU2.5V10 INH (12:58)
[2024-09-20] MEDS ORDERED: PRED10TA2 PO (13:01)
[2024-09-20] MEDS ORDERED: SYMB16INH INH (13:03)
[2024-09-20] MEDS ORDERED: SPIR1CAP INH (13:04)
[2024-09-20] MEDS ORDERED: LEVO1TAB40 PO (13:07)
[2024-09-20] MEDS ORDERED: LAMO150T3 PO (21:06)
[2024-09-20 23:33] LABS: MYCOPLASMA PNEUMONIAE IGG <= 0.90 (<=0.90)
== END 2024-09-20 15:13 | disposition home health service (06) | DRG 193 ==
LOC: EDBD 14:17 → M ED 14:17 → M ED INP 20:11 → M PCU 09-15 00:03
PROVIDERS: ADMIT Student in an Organized Health Care Education/Training Program; ATTEND Student in an Organized Health Care Education/Training Program
DX: J18.9 Pneumonia, unspecified organism (principal); J96.01 Acute respiratory failure with hypoxia; J44.0 Chronic obstructive pulmonary disease with (acute) lower respiratory infection; J44.1 Chronic obstructive pulmonary disease with (acute) exacerbation; I69.354 Hemiplegia and hemiparesis following cerebral infarction affecting left non-dominant side; E27.1 Primary adrenocortical insufficiency; I10 Essential (primary) hypertension; F17.210 Nicotine dependence, cigarettes, uncomplicated; E66.9 Obesity, unspecified; K21.9 Gastro-esophageal reflux disease without esophagitis; E03.9 Hypothyroidism, unspecified; M54.9 Dorsalgia, unspecified; F31.9 Bipolar disorder, unspecified; G47.00 Insomnia, unspecified; Z98.82 Breast implant status; Z79.890 Hormone replacement therapy; Z79.52 Long term (current) use of systemic steroids; Z79.899 Other long term (current) drug therapy; Z91.041 Radiographic dye allergy status; Z88.0 Allergy status to penicillin; Z88.2 Allergy status to sulfonamides

== ENCOUNTER 2024-09-30 10:30 | Emergency (ER) | payer MEDICARE, MEDICAID ==
[~2024-09-30] VITALS: Ht 167.6 cm; Wt 95.5 kg
[~2024-09-30 10:30] MED LIST changes: -ADV100INH INH; +ADVA1AER8 INH; +LAMO150T3 PO; +LEXA1TAB PO; +NICO21PAT TD; +SPIR1CAP INH; +SYMB16INH INH
[2024-09-30 11:04] LABS: VENOUS BASE EXCESS 2.5 (-2.0-2.0); VENOUS HCO3 27.6 MMOL/L (23.0-27.0); VENOUS O2 SATURATION 48.8 % (60.0-80.0); VENOUS PARTIAL PRESSURE CO2 44.9 mmHg (38.0-50.0); VENOUS PARTIAL PRESSURE O2 28.2 mmHg (30.0-50.0); VENOUS PH 7.406 UNITS (7.330-7.430); VENOUS STANDARD HCO3 25.8 MMOL/L; VENOUS TOTAL CO2 28.9 MMOL/L (24.0-28.0)
[2024-09-30 11:13] LABS: BASO % 0.3 % (0.0-1.0); EOS # 0.2 10^3/uL (0.0-0.5); EOS % 1.9 % (0.0-3.0); HEMATOCRIT 31.2 % (36.0-47.0); LYMPH # 1.2 10^3/uL (1.5-5.0); MEAN CORPUSCULAR HEMOGLOBIN 23.6 pg (27.0-33.0); MEAN CORPUSCULAR HGB CONC 28.8 g/dl (32.0-36.5); MEAN CORPUSCULAR VOLUME 81.9 fl (80.0-96.0); MONO # 1.1 10^3/uL (0.0-0.8); NEUTROPHILS # 7.5 10^3/uL (1.5-8.5); NEUTROPHILS % 74.3 % (36.0-66.0); PLATELET COUNT, AUTOMATED 269 10^3/uL (150-450); RED BLOOD COUNT 3.81 10^6/uL (4.00-5.40); WHITE BLOOD COUNT 10.1 10^3/uL (4.0-10.0)
[2024-09-30 11:43] LABS: ALBUMIN 2.5 G/DL (3.2-5.2); ALKALINE PHOSPHATASE 80 U/L (35-104); ALT/SGPT 10 U/L (7.0-40); AST/SGOT < 8 U/L (<34); BILIRUBIN,DIRECT 0.2 MG/DL (<0.4); BILIRUBIN,TOTAL 0.5 MG/DL (0.3-1.2); BLOOD UREA NITROGEN 9 MG/DL (9-23); CALCIUM LEVEL 9.7 MG/DL (8.3-10.6); CARBON DIOXIDE LEVEL 28 MMOL/L (20-31); CHLORIDE LEVEL 106 MMOL/L (98-107); CREATININE FOR GFR 0.89 MG/DL (0.55-1.30); GLOMERULAR FILTRATION RATE > 60.0 (>45); GLUCOSE, FASTING 93 MG/DL (74-106); POTASSIUM SERUM 3.7 MMOL/L (3.5-5.1); SODIUM LEVEL 139 MMOL/L (136-145); TOTAL PROTEIN 6.2 G/DL (5.7-8.2)
[2024-09-30 11:52] LABS: OSMOLALITY SERUM 286 MOSM/KG (275-295)
[2024-09-30] MEDS ORDERED: IPRA0.00 INH (11:52)
[2024-09-30] MEDS ORDERED: TIOT18INH INH (11:52)
[2024-09-30] MEDS ORDERED: ALBU2.5V10 INH (11:52)
[2024-09-30] MEDS ORDERED: SYMB16INH INH (11:52)
[2024-09-30] MEDS ORDERED: HYDR-3363 PO (12:00)
[2024-09-30] MEDS ORDERED: ZYPR5TAB2 PO (12:00)
[2024-09-30 12:05] LABS: CPK CREATINE PHOSPHOKINASE 39 U/L (34-145)
[2024-09-30] MEDS ORDERED: LAMI1TAB7 PO (12:06)
[2024-09-30] MEDS ORDERED: KEPP1TAB2 PO (12:06)
[2024-09-30] MEDS ORDERED: ESZO1TAB6 PO (12:06)
[2024-09-30] MEDS ORDERED: MIRA3350 PO (12:06)
[2024-09-30] MEDS ORDERED: HOME MED LIST COMPLETE! XX SCH (12:10)
[2024-09-30] MEDS: NS 500 ML IV ONE (12:57)
[2024-09-30 14:45] VITALS: BP 123/58; TEMP 98.6; O2SAT 90
[2024-09-30 14:50] LABS: AMPHETAMINES LEVEL URINE NEGATIVE (NEGATIVE); BARBITURATES URINE NEGATIVE (NEGATIVE); BENZODIAZEPINES URINE NEGATIVE (NEGATIVE); CANNABINOIDS URINE NEGATIVE (NEGATIVE); COCAINE METABOLITE URINE NEGATIVE (NEGATIVE); METHADONE URINE NEGATIVE (NEGATIVE); PHENCYCLIDINE URINE NEGATIVE (NEGATIVE)
[2024-09-30 14:57] LABS: OPIATES URINE POSITIVE (NEGATIVE)
== END 2024-09-30 15:24 | disposition home or self-care (01) ==
LOC: M ED 10:30 → EDBD 10:30 → M ED 15:24
DX: R53.1 Weakness (principal); I10 Essential (primary) hypertension; J44.9 Chronic obstructive pulmonary disease, unspecified; Z87.01 Personal history of pneumonia (recurrent); R56.9 Unspecified convulsions; Z86.73 Personal history of transient ischemic attack (TIA), and cerebral infarction without residual deficits; Z86.19 Personal history of other infectious and parasitic diseases; F31.9 Bipolar disorder, unspecified; F43.10 Post-traumatic stress disorder, unspecified; F17.200 Nicotine dependence, unspecified, uncomplicated; Z79.02 Long term (current) use of antithrombotics/antiplatelets; Z79.899 Other long term (current) drug therapy; Z88.0 Allergy status to penicillin; Z88.2 Allergy status to sulfonamides; Z91.041 Radiographic dye allergy status

== ENCOUNTER 2024-10-13 21:22 | Emergency (ER) | payer MEDICARE, MEDICAID ==
[~2024-10-13] VITALS: Ht 160 cm; Wt 95.2 kg
[~2024-10-13 21:22] MED LIST changes: +ESZO1TAB6 PO; +HYDR-3363 PO; +LAMI1TAB7 PO; +TIOT18INH INH; +ZYPR5TAB2 PO
[2024-10-13 21:52] VITALS: BP 138/89; TEMP 98.4; O2SAT 91
== END 2024-10-14 00:38 | disposition left against medical advice (07) ==
LOC: M ED 10-14 00:29
DX: Z53.21 Procedure and treatment not carried out due to patient leaving prior to being seen by health care provider (principal)

== ENCOUNTER 2024-10-21 12:30 | Observation (INO) | payer MEDICARE, MEDICAID ==
[~2024-10-21] VITALS: Ht 160 cm; Wt 90.9 kg
[2024-10-21] MEDS: ACETAMINOPHEN 325 MG TAB PO ONE (15:14)
[2024-10-21 16:14] LABS: BASO # 0.1 10^3/uL (0.0-0.2); BASO % 0.6 % (0.0-1.0); EOS # 0.1 10^3/uL (0.0-0.5); EOS % 1.4 % (0.0-3.0); HEMATOCRIT 33.8 % (36.0-47.0); HEMOGLOBIN 9.8 g/dl (12.0-15.5); LYMPH # 1.7 10^3/uL (1.5-5.0); LYMPH % 22.3 % (24.0-44.0); MEAN CORPUSCULAR HEMOGLOBIN 23.3 pg (27.0-33.0); MEAN CORPUSCULAR VOLUME 80.5 fl (80.0-96.0); MONO # 0.7 10^3/uL (0.0-0.8); MONO % 9.4 % (2.0-8.0); NEUTROPHILS # 5.1 10^3/uL (1.5-8.5); PLATELET COUNT, AUTOMATED 248 10^3/uL (150-450); WHITE BLOOD COUNT 7.8 10^3/uL (4.0-10.0)
[2024-10-21 16:40] LABS: ETHYL ALCOHOL (ETHANOL) < 0.003 % (0.000-0.010)
[2024-10-21 16:42] LABS: ALKALINE PHOSPHATASE 128 U/L (35-104); ALT/SGPT < 9 U/L (7.0-40); AST/SGOT 10 U/L (<34); BILIRUBIN,TOTAL 0.3 MG/DL (0.3-1.2); BLOOD UREA NITROGEN 12 MG/DL (9-23); CALCIUM LEVEL 9.7 MG/DL (8.3-10.6); CARBON DIOXIDE LEVEL 28 MMOL/L (20-31); CHLORIDE LEVEL 107 MMOL/L (98-107); CREATININE FOR GFR 0.61 MG/DL (0.55-1.30); GLOMERULAR FILTRATION RATE > 60.0 (>45); GLUCOSE, FASTING 90 MG/DL (74-106); POTASSIUM SERUM 3.7 MMOL/L (3.5-5.1); SODIUM LEVEL 142 MMOL/L (136-145); TOTAL PROTEIN 7.2 G/DL (5.7-8.2)
[2024-10-21] MEDS ORDERED: VARE1TAB7 PO (17:22)
[2024-10-21] MEDS ORDERED: MIRALAX *UNIT DOSE* 17GM PACKET PO PRN (17:30)
[2024-10-21] MEDS ORDERED: IPRATROPIUM 0.5MG/ALBUTEROL 2.5MG INH SOL UD 3ML (DUONEB) INH PRN (17:30)
[2024-10-21] MEDS ORDERED: ALBUTEROL SULFATE 2.5MG/0.5ML INH NEB SOLN INH PRN (17:30)
[2024-10-21] MEDS ORDERED: MOM 30ML SUSPENSION UDC PO PRN (17:30)
[2024-10-21] MEDS ORDERED: MAALOX 30 ML SUSP *UDC PO PRN (17:30)
[2024-10-21] MEDS ORDERED: HOME MED LIST COMPLETE! XX SCH (17:30)
[2024-10-21] MEDS ORDERED: PILL CUTTER 1 EACH XX ONE (18:34)
[2024-10-21] MEDS: amLODIPine 5 MG TAB PO ONE (18:37)
[2024-10-21] MEDS: oxyCODONE 5MG TAB PO PRN (18:37)
[2024-10-21 18:45] LABS: AMPHETAMINES LEVEL URINE NEGATIVE (NEGATIVE)
[2024-10-21 18:46] LABS: BARBITURATES URINE NEGATIVE (NEGATIVE); BENZODIAZEPINES URINE NEGATIVE (NEGATIVE); CANNABINOIDS URINE NEGATIVE (NEGATIVE); COCAINE METABOLITE URINE NEGATIVE (NEGATIVE); METHADONE URINE NEGATIVE (NEGATIVE); OPIATES URINE NEGATIVE (NEGATIVE); PHENCYCLIDINE URINE NEGATIVE (NEGATIVE)
[2024-10-21] MEDS: SYMBICORT 160/4.5MCG INHALER 6GM INH SCH (20:18)
[2024-10-21] MEDS: DOCUSATE SODIUM 100MG CAPSULE PO SCH (21:14)
[2024-10-21] MEDS: OLANZapine 5 MG TAB PO SCH (21:14)
[2024-10-21] MEDS: ATORVASTATIN 20 MG TAB PO SCH (21:15)
[2024-10-21] MEDS: levETIRAcetam 250MG TABLET (KEPPRA) PO SCH (21:15)
[2024-10-21] MEDS: OLANZapine 10 MG TAB PO SCH (21:15)
[2024-10-21] MEDS: oxyBUTYnin 5 MG TAB PO SCH (21:15)
[2024-10-21] MEDS: PRAZOSIN 1 MG CAP PO SCH (21:18)
[2024-10-21] MEDS: ACETAMINOPHEN 325 MG TAB PO PRN (21:21)
[2024-10-22 06:26] LABS: BASO % 0.7 % (0.0-1.0); EOS # 0.1 10^3/uL (0.0-0.5); EOS % 2.5 % (0.0-3.0); HEMATOCRIT 33.6 % (36.0-47.0); HEMOGLOBIN 9.7 g/dl (12.0-15.5); LYMPH # 1.6 10^3/uL (1.5-5.0); LYMPH % 27.5 % (24.0-44.0); MEAN CORPUSCULAR HEMOGLOBIN 23.4 pg (27.0-33.0); MEAN CORPUSCULAR HGB CONC 28.9 g/dl (32.0-36.5); MONO # 0.7 10^3/uL (0.0-0.8); MONO % 11.9 % (2.0-8.0); NEUTROPHILS # 3.3 10^3/uL (1.5-8.5); NEUTROPHILS % 57.2 % (36.0-66.0); PLATELET COUNT, AUTOMATED 235 10^3/uL (150-450); RED BLOOD COUNT 4.15 10^6/uL (4.00-5.40); WHITE BLOOD COUNT 5.7 10^3/uL (4.0-10.0)
[2024-10-22] MEDS: LEVOTHYROXINE 137MCG TABLET (0.137MG) PO SCH (06:26)
[2024-10-22 06:44] LABS: BLOOD UREA NITROGEN 11 MG/DL (9-23); CALCIUM LEVEL 9.9 MG/DL (8.3-10.6); CARBON DIOXIDE LEVEL 27 MMOL/L (20-31); CHLORIDE LEVEL 109 MMOL/L (98-107); CREATININE FOR GFR 0.67 MG/DL (0.55-1.30); GLOMERULAR FILTRATION RATE > 60.0 (>45); GLUCOSE, FASTING 97 MG/DL (74-106); POTASSIUM SERUM 3.9 MMOL/L (3.5-5.1); SODIUM LEVEL 144 MMOL/L (136-145)
[2024-10-22] MEDS: TIOTROPIUM INHALER/CAPSULE (SPIRIVA) INH SCH (08:59)
[2024-10-22] MEDS: OMEPRAZOLE 20MG CAP PO SCH (09:37)
[2024-10-22] MEDS: ESCITALOPRAM OXALATE 10 MG TAB (LEXAPRO) PO SCH (09:38)
[2024-10-22] MEDS: LIDOCAINE 5% (LIDODERM) PATCH TD SCH (09:38)
[2024-10-22] MEDS: CLOPIDOGREL 75 MG TAB PO SCH (09:38)
[2024-10-22] MEDS: RIVAROXABAN 20MG TAB (XARELTO) PO SCH (09:38)
[2024-10-22] MEDS: predniSONE 10MG TAB PO SCH (09:38)
[2024-10-22 09:39] VITALS: BP 176/74
[2024-10-22] MEDS: amLODIPine 5 MG TAB PO SCH (09:39)
[2024-10-22] MEDS ORDERED: LIDO5TD TD (11:51)
[2024-10-22] MEDS ORDERED: AMLO1TAB24 PO (11:51)
[2024-10-22 14:48] VITALS: BP 158/85; TEMP 99.2; O2SAT 94
[2024-10-22] MEDS ORDERED: oxyCODONE 5MG TAB PO PRN (21:00)
== END 2024-10-22 14:58 | disposition home or self-care (01) ==
LOC: M ED 12:30 → EDBD 12:30 → M ED INP 12:31
PROVIDERS: ADMIT Internal Medicine; ATTEND Internal Medicine
DX: M79.605 Pain in left leg (principal); W19.XXXA Unspecified fall, initial encounter; E03.9 Hypothyroidism, unspecified; I10 Essential (primary) hypertension; B18.2 Chronic viral hepatitis C; K21.9 Gastro-esophageal reflux disease without esophagitis; E66.9 Obesity, unspecified; Z86.73 Personal history of transient ischemic attack (TIA), and cerebral infarction without residual deficits; Z86.711 Personal history of pulmonary embolism; J44.9 Chronic obstructive pulmonary disease, unspecified; Z88.2 Allergy status to sulfonamides; Z88.0 Allergy status to penicillin; Z79.899 Other long term (current) drug therapy; N32.81 Overactive bladder; F31.9 Bipolar disorder, unspecified; F43.10 Post-traumatic stress disorder, unspecified; F41.9 Anxiety disorder, unspecified; F32.A Depression, unspecified
CPT/HCPCS: 36415; 70450; 72125; 73502; 73552; 73564; 73590; 80048; 80053; 80307; 82077; 85025; 94640; 94664; 97116; 97161; 97530; 99285; G0378; G0390; J7512

== ENCOUNTER 2024-11-06 13:40 | Emergency (ER) | payer MEDICARE, MEDICAID ==
[~2024-11-06] VITALS: Ht 165.1 cm; Wt 92.3 kg
[~2024-11-06 13:40] MED LIST changes: +AMLO1TAB24 PO; +LIDO5TD TD; +VARE1TAB7 PO
[2024-11-06 13:50] VITALS: BP 143/90; TEMP 96.9; O2SAT 91
== END 2024-11-06 16:58 | disposition left against medical advice (07) ==
LOC: M ED 13:40
DX: Z53.21 Procedure and treatment not carried out due to patient leaving prior to being seen by health care provider (principal)

== ENCOUNTER 2024-11-18 14:07 | Emergency (ER) | payer MEDICARE, MEDICAID ==
[~2024-11-18] VITALS: Ht 172.7 cm; Wt 93.6 kg
[2024-11-18 15:13] LABS: BASO # 0.1 10^3/uL (0.0-0.2); BASO % 0.5 % (0.0-1.0); EOS # 0.1 10^3/uL (0.0-0.5); EOS % 0.9 % (0.0-3.0); HEMATOCRIT 36.4 % (36.0-47.0); HEMOGLOBIN 10.8 g/dl (12.0-15.5); LYMPH # 1.9 10^3/uL (1.5-5.0); LYMPH % 19.9 % (24.0-44.0); MEAN CORPUSCULAR HEMOGLOBIN 22.9 pg (27.0-33.0); MEAN CORPUSCULAR HGB CONC 29.7 g/dl (32.0-36.5); MEAN CORPUSCULAR VOLUME 77.3 fl (80.0-96.0); MONO # 0.8 10^3/uL (0.0-0.8); MONO % 8.1 % (2.0-8.0); NEUTROPHILS # 6.5 10^3/uL (1.5-8.5); NEUTROPHILS % 70.3 % (36.0-66.0); PLATELET COUNT, AUTOMATED 328 10^3/uL (150-450); RED BLOOD COUNT 4.71 10^6/uL (4.00-5.40); WHITE BLOOD COUNT 9.3 10^3/uL (4.0-10.0)
[2024-11-18 15:44] LABS: KETONE, URINE AUTO RFX NEGATIVE (NEGATIVE); MUCUS, URINE RFX SMALL (NEGATIVE); NITRITE, URINE AUTO RFX NEGATIVE (NEGATIVE); RBC, URINE AUTO RFX 2 /HPF (0-3); SQUAM EPITHELIAL CELL UR AURFX 5 /HPF (0-6); WBC, URINE AUTO RFX 10 /HPF (0-3)
[2024-11-18 15:46] LABS: LEUKOCYTE ESTERASE UR AUTO RFX TRACE (NEGATIVE); LIPASE 24 U/L (12-53)
[2024-11-18 15:48] LABS: ALBUMIN 3.5 G/DL (3.2-5.2); ALKALINE PHOSPHATASE 151 U/L (35-104); ALT/SGPT 10 U/L (7.0-40); AST/SGOT < 8 U/L (<34); BILIRUBIN,DIRECT < 0.1 MG/DL (<0.4); BILIRUBIN,TOTAL 0.2 MG/DL (0.3-1.2); BLOOD UREA NITROGEN 12 MG/DL (9-23); CALCIUM LEVEL 10.3 MG/DL (8.3-10.6); CARBON DIOXIDE LEVEL 23 MMOL/L (20-31); CHLORIDE LEVEL 112 MMOL/L (98-107); CREATININE FOR GFR 0.66 MG/DL (0.55-1.30); GLOMERULAR FILTRATION RATE > 60.0 (>45); GLUCOSE, FASTING 112 MG/DL (74-106); POTASSIUM SERUM 4.5 MMOL/L (3.5-5.1); SODIUM LEVEL 142 MMOL/L (136-145); TOTAL PROTEIN 7.6 G/DL (5.7-8.2)
[2024-11-18] MEDS: KETOROLAC 30 MG/ML 1ML VIAL IM ONE (18:11)
[2024-11-18] MEDS: PERCOCET 5MG/325MG TAB PO ONE (19:36)
[2024-11-18] MEDS: IPRATROPIUM 0.5MG/ALBUTEROL 2.5MG INH SOL UD 3ML (DUONEB) NEB ONE (20:13)
[2024-11-18] MEDS: MORPHINE 4 MG/ML 1ML VIAL IV ONE (21:08)
[2024-11-18 22:36] VITALS: BP 130/87; O2SAT 92
[2024-11-18] MEDS ORDERED: HYDR-3713 PO (22:47)
[2024-11-18 23:03] VITALS: TEMP 98.8
== END 2024-11-18 21:02 | disposition home or self-care (01) ==
LOC: M ED 14:07
DX: N23 Unspecified renal colic (principal); N20.1 Calculus of ureter; I10 Essential (primary) hypertension; E78.5 Hyperlipidemia, unspecified; J44.9 Chronic obstructive pulmonary disease, unspecified; K58.9 Irritable bowel syndrome, unspecified; Z87.442 Personal history of urinary calculi; K22.70 Barrett's esophagus without dysplasia; F17.200 Nicotine dependence, unspecified, uncomplicated; Z86.73 Personal history of transient ischemic attack (TIA), and cerebral infarction without residual deficits; Z79.02 Long term (current) use of antithrombotics/antiplatelets; Z79.899 Other long term (current) drug therapy; Z91.041 Radiographic dye allergy status; Z88.1 Allergy status to other antibiotic agents; Z88.2 Allergy status to sulfonamides
CPT/HCPCS: 74176; 80048; 80076; 81001; 83690; 85025; 87088; 87186; 94640; 96372; 96374; 99285; J1885

== ENCOUNTER 2024-11-30 13:08 | Observation (INO) | payer MEDICARE, MEDICAID ==
[~2024-11-30] VITALS: Ht 172.7 cm; Wt 89.1 kg
[~2024-11-30 13:08] MED LIST changes: +HYDR-3713 PO
[2024-11-30] MEDS: NALOXONE INJ 0.4MG/1ML VIAL IV STA (14:16)
[2024-11-30 15:01] LABS: ABG BASE EXCESS -1.9 (-2.0-2.0); ABG HCO3 21.7 MMOL/L (22.0-26.0); ABG O2 SATURATION 92.1 % (95.0-99.0); ABG PARTIAL PRESSURE CO2 33.2 mmHg (35.0-45.0); ABG PARTIAL PRESSURE O2 63.3 mmHg (75.0-100.0); ABG STANDARD HCO3 22.8 MMOL/L. (22.0-26.0); ABG TOTAL CO2 22.7 MMOL/L (23.0-31.0); ABG pH (ARTERIAL) 7.433 UNITS (7.350-7.450)
[2024-11-30 15:03] LABS: BASO % 0.4 % (0.0-1.0); EOS # 0.2 10^3/uL (0.0-0.5); EOS % 2.1 % (0.0-3.0); HEMATOCRIT 36.9 % (36.0-47.0); HEMOGLOBIN 10.8 g/dl (12.0-15.5); LYMPH # 1.7 10^3/uL (1.5-5.0); LYMPH % 16.7 % (24.0-44.0); MEAN CORPUSCULAR HEMOGLOBIN 23.2 pg (27.0-33.0); MEAN CORPUSCULAR HGB CONC 29.3 g/dl (32.0-36.5); MEAN CORPUSCULAR VOLUME 79.4 fl (80.0-96.0); MONO # 1.1 10^3/uL (0.0-0.8); MONO % 10.9 % (2.0-8.0); NEUTROPHILS # 7.1 10^3/uL (1.5-8.5); NEUTROPHILS % 69.6 % (36.0-66.0); RED BLOOD COUNT 4.65 10^6/uL (4.00-5.40); WHITE BLOOD COUNT 10.2 10^3/uL (4.0-10.0)
[2024-11-30 15:23] LABS: KETONE, URINE AUTO RFX NEGATIVE (NEGATIVE); LEUKOCYTE ESTERASE UR AUTO RFX NEGATIVE (NEGATIVE); MUCUS, URINE RFX SMALL (NEGATIVE); RBC, URINE AUTO RFX 1 /HPF (0-3); SQUAM EPITHELIAL CELL UR AURFX 3 /HPF (0-6); WBC, URINE AUTO RFX 1 /HPF (0-3)
[2024-11-30 15:29] LABS: NITRITE, URINE AUTO RFX POSITIVE (NEGATIVE)
[2024-11-30 15:33] LABS: PLATELET COUNT, AUTOMATED 263 10^3/uL (150-450)
[2024-11-30 15:38] LABS: ETHYL ALCOHOL (ETHANOL) < 0.003 % (0.000-0.010)
[2024-11-30 15:40] LABS: ALBUMIN 3.6 G/DL (3.2-5.2); ALKALINE PHOSPHATASE 150 U/L (35-104); ALT/SGPT < 9 U/L (7.0-40); AST/SGOT 10 U/L (<34); BILIRUBIN,DIRECT 0.1 MG/DL (<0.4); BILIRUBIN,TOTAL 0.4 MG/DL (0.3-1.2); BLOOD UREA NITROGEN 10 MG/DL (9-23); CALCIUM LEVEL 10.4 MG/DL (8.3-10.6); CARBON DIOXIDE LEVEL 27 MMOL/L (20-31); CHLORIDE LEVEL 107 MMOL/L (98-107); CREATININE FOR GFR 0.65 MG/DL (0.55-1.30); GLOMERULAR FILTRATION RATE > 60.0 (>45); GLUCOSE, FASTING 96 MG/DL (74-106); POTASSIUM SERUM 3.9 MMOL/L (3.5-5.1); SALICYLATE LEVEL < 3.0 MG/DL (<30); SODIUM LEVEL 141 MMOL/L (136-145); TOTAL PROTEIN 7.8 G/DL (5.7-8.2)
[2024-11-30 15:42] LABS: THYROID STIMULATING HORMONE 0.173 uIU/ML (0.55-4.78)
[2024-11-30 15:43] LABS: AMPHETAMINES LEVEL URINE NEGATIVE (NEGATIVE); BARBITURATES URINE NEGATIVE (NEGATIVE); BENZODIAZEPINES URINE NEGATIVE (NEGATIVE); CANNABINOIDS URINE NEGATIVE (NEGATIVE); COCAINE METABOLITE URINE NEGATIVE (NEGATIVE); METHADONE URINE NEGATIVE (NEGATIVE); OPIATES URINE NEGATIVE (NEGATIVE); PHENCYCLIDINE URINE NEGATIVE (NEGATIVE)
[2024-11-30] MEDS ORDERED: NITR100C2 PO (20:25)
[2024-11-30] MEDS ORDERED: LAMO200T3 PO (20:25)
[2024-11-30] MEDS ORDERED: OLAN1TAB16 PO (20:25)
[2024-11-30] MEDS ORDERED: MED REC COMMENT (20:36)
[2024-11-30] MEDS ORDERED: HOME MED LIST COMPLETE! XX SCH (20:40)
[2024-11-30] MEDS: OLANZapine 10 MG TAB PO SCH (21:00)
[2024-11-30] MEDS ORDERED: MOM 30ML SUSPENSION UDC PO PRN (22:00)
[2024-11-30] MEDS ORDERED: IPRATROPIUM 0.5MG/ALBUTEROL 2.5MG INH SOL UD 3ML (DUONEB) INH PRN (22:00)
[2024-11-30] MEDS ORDERED: MAALOX 30 ML SUSP *UDC PO PRN (22:00)
[2024-11-30] MEDS ORDERED: ALBUTEROL SULFATE 2.5MG/0.5ML INH NEB SOLN INH PRN (22:00)
[2024-11-30] MEDS ORDERED: MIRALAX *UNIT DOSE* 17GM PACKET PO PRN (22:00)
[2024-11-30 23:55] VITALS: BP 152/94; TEMP 98.1; O2SAT 95
[2024-12-01] MEDS: lamoTRIgine 100MG TAB PO SCH (01:26)
[2024-12-01] MEDS: OLANZapine 5 MG TAB PO SCH (01:27)
[2024-12-01] MEDS: DOCUSATE SODIUM 100MG CAPSULE PO SCH (01:27)
[2024-12-01] MEDS: ATORVASTATIN 20 MG TAB PO SCH (01:27)
[2024-12-01] MEDS: levETIRAcetam 250MG TABLET (KEPPRA) PO SCH (01:27)
[2024-12-01] MEDS: oxyBUTYnin 5 MG TAB PO SCH (01:27)
[2024-12-01 04:46] VITALS: BP 113/65; TEMP 97.9; O2SAT 92
[2024-12-01] MEDS: LEVOTHYROXINE 137MCG TABLET (0.137MG) PO SCH (06:01)
[2024-12-01 06:40] LABS: HEMATOCRIT 34.9 % (36.0-47.0); HEMOGLOBIN 10.6 g/dl (12.0-15.5); MEAN CORPUSCULAR HEMOGLOBIN 23.8 pg (27.0-33.0); MEAN CORPUSCULAR HGB CONC 30.4 g/dl (32.0-36.5); MEAN CORPUSCULAR VOLUME 78.4 fl (80.0-96.0); PLATELET COUNT, AUTOMATED 278 10^3/uL (150-450); RED BLOOD COUNT 4.45 10^6/uL (4.00-5.40); WHITE BLOOD COUNT 9.4 10^3/uL (4.0-10.0)
[2024-12-01] MEDS: TIOTROPIUM INHALER/CAPSULE (SPIRIVA) INH SCH (06:51)
[2024-12-01 06:55] LABS: PROCALCITONIN 0.04 ng/ml
[2024-12-01] MEDS ORDERED: DEXTROSE 50% 50ML SYRINGE IV PRN (06:55)
[2024-12-01] MEDS ORDERED: GLUCAGON INJ 1MG VIAL SC PRN (06:55)
[2024-12-01] MEDS ORDERED: GLUCOSE 4 GM CHEW PO PRN (06:55)
[2024-12-01 06:57] LABS: ALBUMIN 3.1 G/DL (3.2-5.2); ALKALINE PHOSPHATASE 133 U/L (35-104); ALT/SGPT < 9 U/L (7.0-40); AST/SGOT 10 U/L (<34); BILIRUBIN,TOTAL 0.5 MG/DL (0.3-1.2); BLOOD UREA NITROGEN 15 MG/DL (9-23); CARBON DIOXIDE LEVEL 25 MMOL/L (20-31); CHLORIDE LEVEL 107 MMOL/L (98-107); CREATININE FOR GFR 0.68 MG/DL (0.55-1.30); GLOMERULAR FILTRATION RATE > 60.0 (>45); GLUCOSE, FASTING 93 MG/DL (74-106); MAGNESIUM LEVEL 2.1 MG/DL (1.8-2.4); POTASSIUM SERUM 4.3 MMOL/L (3.5-5.1); SODIUM LEVEL 140 MMOL/L (136-145); TOTAL PROTEIN 7.1 G/DL (5.7-8.2)
[2024-12-01] MEDS: INSULIN LISPRO (NovoLOG) PER UNIT SC SCH (07:26)
[2024-12-01] MEDS: RIVAROXABAN 20MG TAB (XARELTO) PO SCH (08:04)
[2024-12-01] MEDS: predniSONE 10MG TAB PO SCH (08:04)
[2024-12-01] MEDS: ESCITALOPRAM OXALATE 10 MG TAB (LEXAPRO) PO SCH (08:04)
[2024-12-01] MEDS: CLOPIDOGREL 75 MG TAB PO SCH (08:04)
[2024-12-01] MEDS: OMEPRAZOLE 20MG CAP PO SCH (08:04)
[2024-12-01] MEDS: PANTOPRAZOLE 40MG VIAL IV SCH (08:04)
[2024-12-01] MEDS: amLODIPine 5 MG TAB PO SCH (08:10)
[2024-12-01] MEDS ORDERED: PILL CUTTER 1 EACH XX PRN (08:25)
[2024-12-01] MEDS: NORCO, ANEXSIA 5/325MG TABLET (HYDROcodone/ACETAMINOPHEN) PO PRN (08:36)
[2024-12-01] MEDS: NORCO, ANEXSIA 5/325MG TABLET (HYDROcodone/ACETAMINOPHEN) PO ONE (11:01)
[2024-12-01 12:00] VITALS: BP 108/65; TEMP 97.7; O2SAT 91
[2024-12-01 19:56] VITALS: BP 129/72; TEMP 97.9; O2SAT 90
[2024-12-01] MEDS: ALPRAZolam 0.25 MG TAB PO SCH (21:20)
[2024-12-01] MEDS: ACETAMINOPHEN 325 MG TAB PO PRN (21:20)
[2024-12-02 04:15] VITALS: BP 130/68; TEMP 97.7; O2SAT 90
[2024-12-02 06:01] LABS: BASO % 0.4 % (0.0-1.0); EOS # 0.2 10^3/uL (0.0-0.5); EOS % 2.8 % (0.0-3.0); HEMATOCRIT 32.5 % (36.0-47.0); HEMOGLOBIN 9.6 g/dl (12.0-15.5); LYMPH # 2.5 10^3/uL (1.5-5.0); LYMPH % 33.6 % (24.0-44.0); MEAN CORPUSCULAR HEMOGLOBIN 23.4 pg (27.0-33.0); MEAN CORPUSCULAR HGB CONC 29.5 g/dl (32.0-36.5); MEAN CORPUSCULAR VOLUME 79.1 fl (80.0-96.0); MONO # 0.8 10^3/uL (0.0-0.8); MONO % 10.3 % (2.0-8.0); NEUTROPHILS % 52.8 % (36.0-66.0); PLATELET COUNT, AUTOMATED 270 10^3/uL (150-450); RED BLOOD COUNT 4.11 10^6/uL (4.00-5.40); WHITE BLOOD COUNT 7.5 10^3/uL (4.0-10.0)
[2024-12-02 06:37] LABS: BLOOD UREA NITROGEN 24 MG/DL (9-23); CALCIUM LEVEL 9.3 MG/DL (8.3-10.6); CARBON DIOXIDE LEVEL 25 MMOL/L (20-31); CHLORIDE LEVEL 109 MMOL/L (98-107); CREATININE FOR GFR 0.71 MG/DL (0.55-1.30); GLOMERULAR FILTRATION RATE > 60.0 (>45); GLUCOSE, FASTING 104 MG/DL (74-106); SODIUM LEVEL 141 MMOL/L (136-145)
[2024-12-02 08:43] VITALS: BP 136/72
[2024-12-02] MEDS: CEFDINIR 300 MG CAP (OMNICEF) PO SCH (09:41)
[2024-12-02] MEDS ORDERED: CEFD1CAP9 PO (10:50)
[2024-12-02] MEDS ORDERED: MYRB25TA PO (10:50)
[2024-12-02 12:00] VITALS: BP 117/71; TEMP 97.7; O2SAT 91
[2024-12-02] MEDS ORDERED: HYDR-3715 PO (16:12)
== END 2024-12-02 18:04 | disposition home or self-care (01) ==
LOC: EDBD 13:08 → M ED 13:08 → M ED INP 13:09 → M MSPAV 23:46 → OBSVTOIN 12-01 04:08 → INTOOBSV 12-01 04:08
PROVIDERS: ADMIT Student in an Organized Health Care Education/Training Program; ATTEND Internal Medicine
DX: G92.8 Other toxic encephalopathy (principal); R29.6 Repeated falls; N39.0 Urinary tract infection, site not specified; B96.1 Klebsiella pneumoniae [K. pneumoniae] as the cause of diseases classified elsewhere; I25.10 Atherosclerotic heart disease of native coronary artery without angina pectoris; E78.5 Hyperlipidemia, unspecified; Z86.73 Personal history of transient ischemic attack (TIA), and cerebral infarction without residual deficits; I10 Essential (primary) hypertension; Z86.711 Personal history of pulmonary embolism; J44.9 Chronic obstructive pulmonary disease, unspecified; E03.9 Hypothyroidism, unspecified; Z79.52 Long term (current) use of systemic steroids; N32.81 Overactive bladder; F41.9 Anxiety disorder, unspecified; F32.A Depression, unspecified; F43.10 Post-traumatic stress disorder, unspecified; G47.00 Insomnia, unspecified; K21.9 Gastro-esophageal reflux disease without esophagitis; Z79.899 Other long term (current) drug therapy
CPT/HCPCS: 36415; 36600; 70450; 72125; 73564; 73590; 73610; 80048; 80053; 80076; 80143; 80307; 81001; 82077; 82803; 83605; 83735; 84145; 84443; 85025; 85027; 87040; 87088; 87186; 93005; 93041; 94640; 94760; 96374; 96375; 96376; 97161; 97165; 97535; 99285; G0378; J2310; J2470; J7512

== ENCOUNTER 2024-12-08 13:38 | Emergency (ER) | payer MEDICARE, MEDICAID ==
[~2024-12-08] VITALS: Ht 167.6 cm; Wt 81.3 kg
[~2024-12-08 13:38] MED LIST changes: +HYDR-3715 PO; +LAMO200T3 PO; +MED REC COMMENT; +MYRB25TA PO; +NITR100C2 PO; +OLAN1TAB16 PO
[2024-12-08 13:46] VITALS: BP 136/67; TEMP 97; O2SAT 95
[2024-12-08] MEDS ORDERED: TRAM50TA2 PO (15:46)
[2024-12-08] MEDS: traMADol 50 MG TAB PO ONE (15:50)
== END 2024-12-08 16:02 | disposition home or self-care (01) ==
LOC: M ED 13:38
DX: M25.562 Pain in left knee (principal); Z86.73 Personal history of transient ischemic attack (TIA), and cerebral infarction without residual deficits; Z86.19 Personal history of other infectious and parasitic diseases; F17.200 Nicotine dependence, unspecified, uncomplicated; Z79.01 Long term (current) use of anticoagulants; Z79.899 Other long term (current) drug therapy; Z88.0 Allergy status to penicillin; Z88.2 Allergy status to sulfonamides; Z91.041 Radiographic dye allergy status

== ENCOUNTER → 2024-12-09 | Outpatient (REF) | payer MEDICARE, MEDICAID ==
[~2024-12-09] MED LIST changes: +TRAM50TA2 PO
[2024-12-09 17:23] LABS: BASO # 0.1 10^3/uL (0.0-0.2); BASO % 0.4 % (0.0-1.0); EOS # 0.2 10^3/uL (0.0-0.5); EOS % 1.7 % (0.0-3.0); HEMATOCRIT 35.5 % (36.0-47.0); HEMOGLOBIN 10.2 g/dl (12.0-15.5); LYMPH # 2.6 10^3/uL (1.5-5.0); LYMPH % 21.7 % (24.0-44.0); MEAN CORPUSCULAR HEMOGLOBIN 23.1 pg (27.0-33.0); MEAN CORPUSCULAR HGB CONC 28.7 g/dl (32.0-36.5); MEAN CORPUSCULAR VOLUME 80.3 fl (80.0-96.0); MONO # 0.8 10^3/uL (0.0-0.8); MONO % 6.5 % (2.0-8.0); NEUTROPHILS # 8.1 10^3/uL (1.5-8.5); NEUTROPHILS % 69.4 % (36.0-66.0); PLATELET COUNT, AUTOMATED 365 10^3/uL (150-450); RED BLOOD COUNT 4.42 10^6/uL (4.00-5.40); WHITE BLOOD COUNT 11.7 10^3/uL (4.0-10.0)
[2024-12-09 17:36] LABS: HEMOGLOBIN A1c 5.6 % (4.0-6.0)
[2024-12-09 17:44] LABS: BLOOD UREA NITROGEN 16 MG/DL (9-23); CALCIUM LEVEL 9.8 MG/DL (8.3-10.6); CARBON DIOXIDE LEVEL 26 MMOL/L (20-31); CHLORIDE LEVEL 104 MMOL/L (98-107); CHOLESTEROL LEVEL 143 MG/DL (<200); CHOLESTEROL RISK RATIO 2.69 (<5); CREATININE FOR GFR 0.69 MG/DL (0.55-1.30); GLOMERULAR FILTRATION RATE > 60.0 (>45); GLUCOSE, FASTING 96 MG/DL (74-106); HDL CHOLESTEROL 53.1 MG/DL (>40); LDL CHOLESTEROL 62.9 MG/DL (<100); NON-HDL-C 89.9 MG/DL; SODIUM LEVEL 140 MMOL/L (136-145); TRIGLYCERIDES LEVEL 135 MG/DL (<150)
[2024-12-09 17:48] LABS: FOLATE 7.5 NG/ML (>5.4); THYROID STIMULATING HORMONE 0.178 uIU/ML (0.55-4.78)
[2024-12-09 17:49] LABS: TOTAL 25(OH) VITAMIN D 19.4 NG/ML (20.0-100.0); VITAMIN B12 LEVEL 516 PG/ML (211-911)
== END ==
LOC: M LAB REF 16:28
PROVIDERS: ATTEND Nurse Practitioner Family
DX: R41.3 Other amnesia (principal); E27.1 Primary adrenocortical insufficiency; E55.9 Vitamin D deficiency, unspecified; E66.9 Obesity, unspecified; N39.0 Urinary tract infection, site not specified; Z79.899 Other long term (current) drug therapy

== ENCOUNTER → 2024-12-22 | Outpatient (CLI) | payer MEDICARE, MEDICAID | LOC: M SOG 07:56 | PROVIDERS: ATTEND Physician Assistant | DX: M17.12 Unilateral primary osteoarthritis, left knee (principal); M85.862 Other specified disorders of bone density and structure, left lower leg ==

== ENCOUNTER → 2025-01-19 | Outpatient (CLI) | payer MEDICARE, MEDICAID | LOC: M SOG 07:47 | PROVIDERS: ATTEND Physician Assistant | DX: S82.402A Unspecified fracture of shaft of left fibula, initial encounter for closed fracture (principal); M17.12 Unilateral primary osteoarthritis, left knee ==

== ENCOUNTER → 2025-02-24 | Outpatient (REF) | payer MEDICARE, MEDICAID ==
[~2025-02-24] MED LIST changes: -FLOM0.4C39 PO; +TAMS-18 PO
[2025-02-24 16:40] LABS: APPEARANCE, URINE HAZY (CLEAR); BACTERIA, URINE AUTO 3+ (NEGATIVE); BILIRUBIN, URINE AUTO NEGATIVE (NEGATIVE); BLOOD, URINE BLOOD 1+ (NEGATIVE); COLOR, URINE YELLOW (YELLOW); GLUCOSE, URINE (UA) AUTO NEGATIVE (NEGATIVE); KETONE, URINE AUTO NEGATIVE (NEGATIVE); LEUKOCYTE ESTERASE, URINE AUTO 3+ (NEGATIVE); NITRITE, URINE AUTO POSITIVE (NEGATIVE); PROTEIN, URINE AUTO NEGATIVE (NEGATIVE); RBC, URINE AUTO 0 /HPF (0-3); SPECIFIC GRAVITY URINE AUTO 1.009 (1.002-1.035); SQUAMOUS EPITHELIAL CELL UR AU 1 /HPF (0-6); UROBILINOGEN, URINE AUTO 0.2 mg/dL (0.0-2.0); WBC, URINE AUTO 5 /HPF (0-3)
== END ==
LOC: M SHH 15:56
PROVIDERS: ATTEND Nurse Practitioner Family
DX: R30.0 Dysuria (principal)

== ENCOUNTER 2025-03-08 17:09 | Inpatient (IN) | payer MEDICARE, MEDICAID ==
[~2025-03-08] VITALS: Ht 172.7 cm; Wt 100.5 kg
[2025-03-08 19:06] LABS: BASO % 0.3 % (0.0-1.0); EOS % 0.1 % (0.0-3.0); HEMATOCRIT 34.3 % (36.0-47.0); HEMOGLOBIN 10.2 g/dl (12.0-15.5); LYMPH % 7.7 % (24.0-44.0); MEAN CORPUSCULAR HEMOGLOBIN 23.9 pg (27.0-33.0); MEAN CORPUSCULAR HGB CONC 29.7 g/dl (32.0-36.5); MEAN CORPUSCULAR VOLUME 80.3 fl (80.0-96.0); MONO # 0.7 10^3/uL (0.0-0.8); MONO % 5.6 % (2.0-8.0); NEUTROPHILS # 11.2 10^3/uL (1.5-8.5); NEUTROPHILS % 85.8 % (36.0-66.0); PLATELET COUNT, AUTOMATED 270 10^3/uL (150-450); RED BLOOD COUNT 4.27 10^6/uL (4.00-5.40)
[2025-03-08 19:11] LABS: CK-MB VALUE MASS 6.9 NG/ML (<3.6)
[2025-03-08 19:13] LABS: ALBUMIN 3.3 G/DL (3.2-5.2); ALKALINE PHOSPHATASE 112 U/L (35-104); ALT/SGPT 16 U/L (7.0-40); AST/SGOT 31 U/L (<34); BILIRUBIN,DIRECT < 0.1 MG/DL (<0.4); BILIRUBIN,TOTAL 0.2 MG/DL (0.3-1.2); BLOOD UREA NITROGEN 18 MG/DL (9-23); CALCIUM LEVEL 9.4 MG/DL (8.3-10.6); CARBON DIOXIDE LEVEL 24 MMOL/L (20-31); CHLORIDE LEVEL 105 MMOL/L (98-107); CREATININE FOR GFR 0.76 MG/DL (0.55-1.30); GLOMERULAR FILTRATION RATE 89.7 (>45); GLUCOSE, FASTING 127 MG/DL (74-106); POTASSIUM SERUM 4.2 MMOL/L (3.5-5.1); SODIUM LEVEL 135 MMOL/L (136-145)
[2025-03-08 19:15] LABS: THYROID STIMULATING HORMONE 1.301 uIU/ML (0.55-4.78)
[2025-03-08 19:16] LABS: CPK CREATINE PHOSPHOKINASE 678 U/L (34-145); MB/CK RELATIVE INDEX 1.01 (< OR =4)
[2025-03-08 19:17] LABS: KETONE, URINE AUTO RFX NEGATIVE (NEGATIVE); RBC, URINE AUTO RFX 4 /HPF (0-3); SQUAM EPITHELIAL CELL UR AURFX 2 /HPF (0-6); WBC, URINE AUTO RFX 8 /HPF (0-3)
[2025-03-08 19:19] LABS: LEUKOCYTE ESTERASE UR AUTO RFX TRACE (NEGATIVE); NITRITE, URINE AUTO RFX POSITIVE (NEGATIVE)
[2025-03-08] MEDS: cefTRIAXone SOD 1 GM in DEXTROSE 5% (D5W) ADV/MINI-BAG 50 ML IV ONE (20:17)
[2025-03-08] MEDS ORDERED: GENTAMICIN 80 MG in D5W 100 ML IV SCH (22:35)
[2025-03-08] MEDS ORDERED: MOM 30ML SUSPENSION UDC PO PRN (22:35)
[2025-03-08] MEDS ORDERED: MAALOX 30 ML SUSP *UDC PO PRN (22:35)
[2025-03-08] MEDS ORDERED: MED REC IN PROGRESS XX SCH (22:50)
[2025-03-09] VITALS (7 sets, daily range): BP systolic 107–180; BP diastolic 58–86; TEMP 97.3–98.1; O2SAT 92–99
[2025-03-09] MEDS: NS (Normal Saline) 0.9% 1,000 ML IV SCH (00:33)
[2025-03-09] MEDS: ACETAMINOPHEN 325 MG TAB PO PRN (01:04)
[2025-03-09] MEDS: traMADol 50 MG TAB PO ONE (02:24)
[2025-03-09 06:41] LABS: HEMATOCRIT 36.7 % (36.0-47.0); HEMOGLOBIN 10.8 g/dl (12.0-15.5); MEAN CORPUSCULAR HGB CONC 29.4 g/dl (32.0-36.5); MEAN CORPUSCULAR VOLUME 81.6 fl (80.0-96.0); PLATELET COUNT, AUTOMATED 230 10^3/uL (150-450); WHITE BLOOD COUNT 9.7 10^3/uL (4.0-10.0)
[2025-03-09 07:13] LABS: PROCALCITONIN <0.04 ng/ml
[2025-03-09 07:23] LABS: ALKALINE PHOSPHATASE 104 U/L (35-104); ALT/SGPT 13 U/L (7.0-40); AST/SGOT 20 U/L (<34); BILIRUBIN,TOTAL 0.2 MG/DL (0.3-1.2); BLOOD UREA NITROGEN 11 MG/DL (9-23); CALCIUM LEVEL 9.4 MG/DL (8.3-10.6); CARBON DIOXIDE LEVEL 25 MMOL/L (20-31); CHLORIDE LEVEL 108 MMOL/L (98-107); CREATININE FOR GFR 0.61 MG/DL (0.55-1.30); GLOMERULAR FILTRATION RATE > 90.0 (>45); GLUCOSE, FASTING 92 MG/DL (74-106); POTASSIUM SERUM 3.7 MMOL/L (3.5-5.1); SODIUM LEVEL 142 MMOL/L (136-145); TOTAL PROTEIN 6.4 G/DL (5.7-8.2)
[2025-03-09] MEDS ORDERED: HOME MED LIST COMPLETE! XX SCH (08:15)
[2025-03-09] MEDS ORDERED: SUZE50TA PO (08:15)
[2025-03-09] MEDS ORDERED: VIBE75TA PO (08:15)
[2025-03-09] MEDS ORDERED: CALC-364 PO (08:15)
[2025-03-09] MEDS ORDERED: AMLO1TAB24 PO (08:15)
[2025-03-09] MEDS ORDERED: LEVO88TA24 PO (08:15)
[2025-03-09] MEDS: PHENAZOPYRIDINE 100 MG TAB PO SCH (08:48)
[2025-03-09] MEDS: DOCUSATE SODIUM 100MG CAPSULE PO SCH (08:48)
[2025-03-09] MEDS: NICOTINE 21MG/24HR 1 EA TRANSDERMAL TD SCH (08:49)
[2025-03-09] MEDS: ANEXSIA, NORCO 7.5MG/325MG TABLET(HYDROCODONE/APAP) PO PRN (08:49)
[2025-03-09] MEDS ORDERED: GEMTESA 75 MG PO SCH (09:00)
[2025-03-09] MEDS ORDERED: ALBUTEROL SULFATE 2.5MG/0.5ML INH CONCENTRATE NEB SOLN INH PRN (11:05)
[2025-03-09] MEDS ORDERED: IPRATROPIUM 0.5MG/ALBUTEROL 2.5MG INH SOL UD 3ML INH PRN (11:05)
[2025-03-09] MEDS ORDERED: MIRALAX *UNIT DOSE* 17GM PACKET PO PRN (11:05)
[2025-03-09] MEDS: LEVOTHYROXINE 88MCG TABLET (0.088 MG) PO SCH (12:50)
[2025-03-09] MEDS: ESCITALOPRAM OXALATE 10 MG TAB (LEXAPRO) PO SCH (12:50)
[2025-03-09] MEDS: VITAMIN D (CHOLECALCIFEROL) 400 INTERNATIONAL UNITS TAB PO SCH (12:50)
[2025-03-09] MEDS: ATORVASTATIN 20 MG TAB PO SCH (12:50)
[2025-03-09] MEDS: CLOPIDOGREL 75 MG TAB PO SCH (12:50)
[2025-03-09] MEDS: lamoTRIgine 100MG TAB PO SCH (12:50)
[2025-03-09] MEDS: OMEPRAZOLE 20MG CAP PO SCH (12:51)
[2025-03-09] MEDS: levETIRAcetam 250MG TABLET (KEPPRA) PO SCH (12:51)
[2025-03-09] MEDS: predniSONE 10MG TAB PO SCH (12:51)
[2025-03-09] MEDS: amLODIPine 5 MG TAB PO SCH (12:51)
[2025-03-09] MEDS: CIPROFLOXACIN 500MG TABLET PO SCH (17:19)
[2025-03-09] MEDS: RIVAROXABAN 20MG TAB (XARELTO) PO SCH (17:19)
[2025-03-09] MEDS ORDERED: cefTRIAXone SOD 1 GM in DEXTROSE 5% (D5W) ADV/MINI-BAG 50 ML IV SCH (20:00)
[2025-03-09] MEDS ORDERED: [UNRECOGNIZED DRUG - OTHER] PO SCH (21:00)
[2025-03-09] MEDS ORDERED: SUZETRIGINE 50 MG PO SCH (21:00)
[2025-03-09] MEDS: METHENAMINE HIPPURATE 1GM TABLET PO SCH (21:37)
[2025-03-09] MEDS: OLANZapine 5 MG TAB PO SCH (21:37)
[2025-03-09] MEDS: OLANZapine 10 MG TAB PO SCH (21:37)
[2025-03-09] MEDS: PRAZOSIN 1 MG CAP PO SCH (21:39)
[2025-03-10 04:05] VITALS: BP 128/66; TEMP 97.9; O2SAT 90
[2025-03-10 09:11] VITALS: BP 145/82
[2025-03-10] MEDS: NORCO, ANEXSIA 5/325MG TABLET (HYDROcodone/ACETAMINOPHEN) PO PRN (09:21)
[2025-03-10] MEDS ORDERED: HYDR-3715 PO (11:04)
[2025-03-10] MEDS ORDERED: MOM30SS2 PO (11:04)
[2025-03-10] MEDS ORDERED: CIPR500T39 PO (11:04)
[2025-03-10] MEDS ORDERED: NICO21PAT TD (11:04)
[2025-03-10] MEDS ORDERED: METH-855 PO (11:04)
== END 2025-03-10 13:07 | disposition home or self-care (01) | DRG 690 ==
LOC: M ED 17:09 → EDBD 17:09 → M ED INP 22:34 → M MSPAV 03-09 00:47
PROVIDERS: ADMIT Student in an Organized Health Care Education/Training Program; ATTEND Student in an Organized Health Care Education/Training Program
DX: N39.0 Urinary tract infection, site not specified (principal); E27.1 Primary adrenocortical insufficiency; F17.200 Nicotine dependence, unspecified, uncomplicated; I10 Essential (primary) hypertension; E03.9 Hypothyroidism, unspecified; M06.9 Rheumatoid arthritis, unspecified; F31.9 Bipolar disorder, unspecified; I73.9 Peripheral vascular disease, unspecified; E78.5 Hyperlipidemia, unspecified; F43.10 Post-traumatic stress disorder, unspecified; I67.1 Cerebral aneurysm, nonruptured; K21.9 Gastro-esophageal reflux disease without esophagitis; Z79.52 Long term (current) use of systemic steroids; J44.9 Chronic obstructive pulmonary disease, unspecified; Z88.0 Allergy status to penicillin; Z88.2 Allergy status to sulfonamides; Z91.040 Latex allergy status; Z79.899 Other long term (current) drug therapy